=== PATIENT | male | born 1950 | race Two or more races ===

== ENCOUNTER → 2023-01-30 14:14 | Outpatient (BNVA) | payer MEDICARE, MEDICAID, SELFPAY | PROVIDERS: PCP Nurse Practitioner Family; Visit Provider Physician Assistant | DX: Z12.11 Encounter for screening for malignant neoplasm of colon (principal) | CPT/HCPCS: 99202 ==

== ENCOUNTER 2023-07-28 07:36 | Day surgery (SDC) | payer MEDICARE, SELFPAY ==
[2023-07-24 13:53] VITALS: BMI 27.5
--- NOTE | 2023-07-28 08:41 | HO.ANESPROP2 ---
HPI - Anesthesia Eval Consult details Narrative: 73 yo male patient for Colonoscopy PMFSH Active Problems Active Problems: All Active Problems (Updated 07/28/23 @ 08:42 by Mellissa Dye MD) Screening for colon cancer (Acute) Screening for prostate cancer (Acute) Physical exam (Acute) Family History Family history of problems with anesthesia: No Surgical History Surgical History Hx of colonoscopy History of Problems with Anesthesia: No Social History Social History Housing: Apartment Patient Tobacco Use Status: Never used Tobacco e-Cigarette/Vaping Use: Never Used Second Hand Smoke Exposure: No Advance Directives: No Advance Directives Information Provided: Yes service: No Current occupational status: retired Cognitive needs: No Hearing needs: No Vision needs: No Meds Allergies Allergy/AdvReac Type Severity Reaction Status Date / Time No Known Allergies Allergy Verified 01/30/23 14:32 Exam Exam Date and Time: July 28, 2023 0841 Height,Weight and Vital Signs: Height 5 ft 5 in Weight 74.843 kg Vital Signs Temp Pulse Resp BP Pulse Ox O2 Del Method 07/28/23 08:51 98.1 F 57 18 115/53 L 98 Room Air Airway Mallampati Class: II TM Dist: >3cm Neck ROM: Full Loose/Missing/Broken Teeth: Yes (Missing some teeth. Denies broken or loose teeth) Heart: RRR Lungs: CTAB Assessment and Plan Assessment Anesthesia Assessment: Anesthesia Plan Discussed and Chart Reviewed Final Anesthetic Review Family History of Problems with Anesthesia: No History of Problems with Anesthesia: No NPO: Yes ASA Class: II Final Preanesthetic Review: No Changes in Pt Med Stat, Meds/Allgs Chart Reviewed, Consent Obtained/Reviewed and Anes Risks/Benef Reviewed Patient Risk: Low Procedure Risk: Low Assessment/Block/Sedation in SS: Assess/Block/Sedation-SS Anesthetic Plan Anesthetic Plan: MAC: Disposition: Standard PACU
[2023-07-28 08:51] VITALS: BP 115/53; PULSE 57; RESP 18; TEMP 36.7; O2SAT 98
[2023-07-28] MEDS: Lactated Ringers 1,000 ML 50 ML IVCONT (08:52)
--- NOTE | 2023-07-28 09:24 | MHC.SHP ---
Pre-Procedural Eval Section A Date of Service: 07/28/23 The patient is an INPATIENT: No Section B Chief Complaint: Screening Relevant Family History (Specify if Yes): No Relevant Social History: None Present Medications: see Short Stay Collaborative assessment Medical History: No relevant PMH History of Previous Operations: Relevant previous surgery/procedure and date(s) (History of colonoscopy) Allergies: Allergies Allergy/AdvReac Type Severity Reaction Status Date / Time No Known Allergies Allergy Verified 01/30/23 14:32 Review of Systems Sugical H&P ROS: Negative: Constitution, Cardiovascular, Respiratory and Gastrointestinal Exam Surgical H&P Exam: Normal: Heart, Normal: Lungs, Normal: Extremities and Normal: Abdomen Plan Diagnosis/Plan: Unchanged I have reviewed the history and physical and performed a pertinent physical examination on my patient. No changes have occurred unless specified. Time Spent With Patient Time: Total time managing care of this patient today ____ minutes.
--- NOTE | 2023-07-28 09:36 | W.PM.OPN ---
Operative Note Operative Note Date of Service: 07/28/23 Narrative: COLONOSCOPY TILL CECUM Pre-op diagnosis: Colon cancer screening Post-op diagnosis:? Diverticulosis, hemorrhoids, fair prep Endoscopist:? Ayad Patel MD Anesthesia:?MAC Consent: Indications for the procedure and potential complications of bleeding, perforation, reaction to medications and missed diagnosis were discussed with the patient and informed consent was obtained. Instrument: Olympus PCF H 190 L variable stiffness pediatric colonoscope Monitoring: Vital signs and clinical assessment, intermittent blood pressure monitoring, continuous EKG monitoring, Pulse oximetry and Carbon Dioxide monitoring were done throughout the procedure. Please see anesthesia flowsheet. Colon withdrawl time was 19 minutes. Procedure: The patient was placed in the left lateral decubitis position and pre-procedure medications were administered. After a digital rectal examination of the ano-rectum, the video colonoscope was inserted into the rectum and advanced through the colon to the cecum. The colonoscope was slowly withdrawn in a retrograde panoramic fashion and the colon mucosa was carefully examined including a retroflexed view of the rectum. Findings and interventions are described below. Procedure Difficulty: Without difficulty Findings: Terminal Ileum: Not evaluated Cecum: Normal Ascending Colon: Normal Transverse Colon: Normal Descending Colon: Normal Sigmoid Colon: Moderate diverticulosis Rectum: Normal Ano-rectum: Moderate internal hemorrhoids Colon preparation: Good after copious irrigation and fair in the right and left colon due to scattered semi-solid stools with some undigested vegetable matter which could not be suctioned Impression and Post Procedure Diagnosis: Colonoscopy Findings: No polyps were detected No large lesions seen and smaller polyps could be missed due to fair prep. Moderate diverticulosis seen in the sigmoid colon Moderate hemorrhoids on retroflexed exam. Plan: Patient has an appointment on 08/13/23 in the [facility] with IVETH Wells. Repeat Colonoscopy in 5 years due to fair prep. Above findings were reviewed with the patient and diverticulosis handout was given in the discharge area
[2023-07-28 10:19] VITALS: BP 102/55; PULSE 64; RESP 16; TEMP 36.8; O2SAT 98
[2023-07-28 10:34] VITALS: BP 114/65; PULSE 61; RESP 16; TEMP 36.1; O2SAT 98
== END 2023-07-28 11:22 | disposition home or self-care (01) ==
PROVIDERS: PCP Nurse Practitioner Family; Visit Provider Internal Medicine Gastroenterology
PROC: 0DJD8ZZ Inspection of Lower Intestinal Tract, Via Natural or Artificial Opening Endoscopic (ICD-10-PCS; CPT 45378; principal; 2023-07-28 09:20)
DX: Z12.11 Encounter for screening for malignant neoplasm of colon (principal); K57.30 Diverticulosis of large intestine without perforation or abscess without bleeding; K64.8 Other hemorrhoids; R35.1 Nocturia
CPT/HCPCS: G0121

== ENCOUNTER → 2023-07-28 07:36 | Outpatient (BNV) | payer MEDICARE, SELFPAY | PROVIDERS: PCP Nurse Practitioner Family; Visit Provider Internal Medicine Gastroenterology | DX: Z12.11 Encounter for screening for malignant neoplasm of colon (principal); K57.30 Diverticulosis of large intestine without perforation or abscess without bleeding; K64.8 Other hemorrhoids | CPT/HCPCS: G0121 ==

== ENCOUNTER 2023-08-26 08:44 | Outpatient (AMB) | payer MEDICARE, SELFPAY ==
[2023-08-26 08:46] VITALS: BP 130/72; PULSE 72; TEMP 36.6; O2SAT 98; BMI 22.3
--- NOTE | 2023-08-26 08:46 | AM.OFFWIN_ITS ---
Intake Vital Signs 08/26/23 08:46 Height 5 ft 5 in Weight 60.781 kg BMI 22.3 BP 130/72 Blood Pressure Location Lt brachial Position Sitting Pulse 72 Pulse Source Pulse Oximeter Temp 97.8 F Temp Source Oral Pulse Oximetry (%) 98 Oxygen Delivery Method Room Air Intake Visit Reasons: EP Back/Lower Ab pain sore throat Intake Note: Patient is here today for back pain and also sore throat. Patient Tobacco Use Status: Never used Tobacco Allergies No Known Allergies Allergy (Verified 08/26/23 08:52) Do you need a note to return to daycare/school/sports/work: No HPI HPI Comments History of Present Illness Details 0918 This is a 73 old male presenting to the clinic for evaluation of lower abdominal discomfort, nausea, testicular discomfort/severe pain, frequent urination ongoing for past 8 months worsening acutely over the past week. Patient reports he is pretty uncomfortable. There may have been a language barrier upon initial evaluation of patient, patient denies sore throat to me. Patient tells me he has been feeling fatigued, malaise for the past few months. Patient denies chest pain, shortness of breath, nausea, vomitng, hematuria, melena, fevers, chills. No previous issues testicles in the past. No concerns for STDs Physical exam patient well-appearing, Mild abdominal tenderness to palpation Concern for possible UTI versus cystitis versus kidney stone vs dka, new onset diabetes. Unlikely torsion, possible epididymitis, hydroceles. I do not suspect obstruction, diverticulitis, appendicitis, choledocholithiasis, cholangitis, cholecystitis, pancreatitis or any acute abdomen is. Plan ED- patient w/ elevated glucose, 3+ glucose and ketones in urine ? DKA vs gastroporesis, testicular discomfort present for months, not an acute finding unlikely acute torsion. PFSH Surgical History Hx of colonoscopy Social History Housing: Apartment Patient Tobacco Use Status: Never used Tobacco e-Cigarette/Vaping Use: Never Used Second Hand Smoke Exposure: No service: No Current occupational status: retired Cognitive needs: No Hearing needs: No Vision needs: No Physical Exam Vital Signs: Last Vital Signs Temp 97.8 F 08/26/23 08:46 Pulse 72 08/26/23 08:46 BP 130/72 08/26/23 08:46 Pulse Ox 98 08/26/23 08:46 Oxygen Delivery Method Room Air 08/26/23 08:46 BMI result Body Mass Index 22.3 Vital signs stable Appearance: Alert.? Oriented X3.? No acute distress.? Patient comfortable appearing Head: Normocephalic, atraumatic, no step-offs or deformities Eyes: Pupils equal, round and reactive to light.?? Neck: Normal inspection.? Neck supple.? CVS: Normal heart rate and rhythm.? Pulses normal.? Respiratory: No respiratory distress.? Breath sounds normal.? Abdomen: Soft and nontender.? Skin: Skin warm and dry.? Normal skin color.? Normal skin turgor.? Extremities: No lower extremity edema.? No calf ttp. 5/5 strength to bilateral upper and lower extremities Neuro: Oriented X 3.? No motor deficit.? No sensory deficit. CN 2-12 intact Results AMB Rapid Strep AMB Rapid Strep Negative Last Edit by Cuong Rojas CMA on 08/26/23 08 :58 AMB Urinalysis, Automated UA Leukoctes 0 Payam/uL Last Edit by Cuong Rojas CMA on 08/26/23 09:32 UA Nitrite Negative Last Edit by Cuong Rojas CMA on 08/26/23 09:32 UA Urobilinogen 0.2 mg/dL Last Edit by Cuong Rojas CMA on 08/26/23 09 :32 UA Protein 0 mg/dL Last Edit by Cuong Rojas CMA on 08/26/23 09:32 UA pH 6.0 Last Edit by Cuong Rojas CMA on 08/26/23 09:32 UA Blood 0 Quinn/uL Last Edit by Cuong Rojas CMA on 08/26/23 09:32 UA Specific [place] 1.010 Last Edit by Cuong Rojas CMA on 08/26/23 09:32 UA Ketone Positive Last Edit by Cuong Rojas CMA on 08/26/23 09:32 UA Bilirubin 0 mg/dL Last Edit by Cuong Rojas CMA on 08/26/23 09:32 UA Glucose 1000 mg/dL Last Edit by Cuong Rojas CMA on 08/26/23 09:32 AMB Random Glucose (hemocue) AMB Random Glucose (hemocue) 414 mg/dL Last Edit by Cuong Rojas CMA o n 08/26/23 09:33 Results Reviewed Results Reviewed: Laboratory Last Values Strep Scn Rapid Clinic Negative 08/26/23 08:58 Assessment & Plan Assessment & Plan (1) Testicular pain: Code(s): N50.819 - Testicular pain, unspecified (2) Bilateral lower abdominal discomfort: Code(s): R10.31 - Right lower quadrant pain; R10.32 - Left lower quadrant pain (3) Urinary frequency: Code(s): R35.0 - Frequency of micturition (4) Hyperglycemia: Code(s): R73.9 - Hyperglycemia, unspecified Plan Take your medications as prescribed. If you were prescribed antibiotics today, it is important that you take your medication to their entirety, do not skip any doses, do not finish them early. Follow-up with your primary care provider this week. Return to the emergency department with new or worsening symptoms. Such as fevers, chills, chest pain, shortness of breath, nausea, vomiting, dizziness, headache, vision changes, lethargy In case of emergency call 911 Orders: Orders AMB Rapid Strep Screen Today Z13.9 - Encounter for screening, unspecified Ronald Arnold MD US scrotum doppler Today N50.819 - Testicular pain, unspecified IVETH Russo AMB Urinalysis Automated Today Z13.9 - Encounter for screening, unspecified IVETH Russo AMB Random Glucose (hemocue) Today Z13.9 - Encounter for screening, unspecified IVETH Russo Medications: New cephalexin 500 mg PO QID 28 caps 0RF 7 days IVETH Russo Coding Level of Care Code Est Pt Level 3 (69719) Diagnoses Testicular pain N50.819 Bilateral lower abdominal discomfort R10.31; R10.32 Urinary frequency R35.0 Hyperglycemia R73.9
== END 2023-08-26 10:10 | disposition home or self-care (01) ==
PROVIDERS: PCP Nurse Practitioner Family; Visit Provider Physician Assistant
DX: N50.819 Testicular pain, unspecified (principal); R10.31 Right lower quadrant pain; R10.32 Left lower quadrant pain; R35.0 Frequency of micturition; R73.9 Hyperglycemia, unspecified; R53.83 Other fatigue
CPT/HCPCS: 81003; 82948; 87880; 99213

== ENCOUNTER 2023-08-26 10:05 | Emergency (ER) | payer MEDICARE, SELFPAY ==
[2023-08-26] VITALS (7 sets, daily range): BP systolic 133–158; BP diastolic 66–87; PULSE 65–80; RESP 16–20; TEMP 36.4–36.7; O2SAT 98–99; BMI 23.3
--- NOTE | ~2023-08-26 | US_ITS ---
EXAMINATION: US SCROTUM CLINICAL INFORMATION: Testicular pain. COMPARISON: None available. TECHNIQUE: A sonogram of the scrotum was performed assessing faust-scale appearance and color Doppler flow. Spectral Doppler analysis of the arterial and venous flow were performed in the testes bilaterally. FINDINGS: RIGHT: Right testicle measures 4.8 x 2.3 x 2.3 cm, volume 13.1 mL. No focal testicular parenchymal lesions are visualized. Spectral Doppler analysis of the arterial and venous flow is normal in the right testis. Right epididymal head is normal in size. 0.5 x 0.4 x 0.4 cm and 0.5 x 0.4 x 0.5 cm cysts are seen in the right epididymal head. No right hydrocele or varicocele is seen. Right epididymal Doppler flow is normal. There is question of a hernia within the right superior scrotal sac. LEFT: Left testicle measures 4.1 x 2.4 x 2.7 cm, volume 13.4 mL. No focal testicular parenchymal lesions are visualized. Spectral Doppler analysis of the arterial and venous flow is normal in the left testis. Left epididymal head is normal in size. Large left hydrocele, approximately 118 mL. No varicocele is seen. Left epididymal Doppler flow is normal. US/US scrotum doppler IMPRESSION: 1. Normal appearance of both testicles. 2. Right epididymal head cysts. 3. Large left hydrocele. 4. Question of a hernia within the right superior scrotal sac. A CT scan of the pelvis could be obtained for further evaluation.
--- NOTE | ~2023-08-26 | CT_ITS ---
EXAMINATION: CT HEAD WITHOUT CONTRAST CLINICAL INFORMATION: Dizziness/off balance COMPARISON: None available. TECHNIQUE: Contiguous axial imaging was performed from the skull base to vertex without intravenous administration of contrast. This CT examination was performed using dose optimization techniques as appropriate, variously including the following: *Automated exposure control *Adjustment of mA and/or kV according to patient size (this includes techniques or standardized protocols for targeted exams where dose is matched to indication/reason for exam; i.e. extremities or head) *Use of iterative reconstruction technique DLP: 644 mGy-cm FINDINGS: There is no intracranial hemorrhage or evidence of acute territorial infarction. There is no mass effect or midline shift. No extra-axial fluid collection. The ventricles are normal. There is mild prominence of the sulci and gyri consistent with age-related involutional change. The mastoid air cells and visualized paranasal sinuses are well aerated and clear. There are several small calcified lesions in the scalp which are of doubtful clinical significance. There is no bony abnormality. CT/CT head/brain wo IV con IMPRESSION: No acute intracranial pathology.
--- NOTE | ~2023-08-26 | CT_ITS ---
EXAMINATION: CT PELVIS WITHOUT CONTRAST CLINICAL INFORMATION: Abnormal ultrasound, question scrotal hernia COMPARISON: Ultrasound of 08/26/2023 TECHNIQUE: Helical scanning was performed with submillimeter collimation through the pelvis. Sagittal and coronal multiplanar 2-D reconstructions were obtained. This CT examination was performed using dose optimization techniques as appropriate, variously including the following: *Automated exposure control *Adjustment of mA and/or kV according to patient size (this includes techniques or standardized protocols for targeted exams where dose is matched to indication/reason for exam; i.e. extremities or head) *Use of iterative reconstruction technique DLP: 250 to mGy-cm FINDINGS: PELVIS: No pelvic mass, adenopathy or ascites is evident. The lower intestinal tract including the appendix images normally. No scrotal hernia is detected. The prostate gland is enlarged, with median lobe hypertrophy indenting the bladder base. OSSEOUS STRUCTURES: Bilateral L5 spondylolysis and grade 1 spondylolisthesis is noted at L5-S1. CT/CT pelvis wo IV con IMPRESSION: 1. No scrotal hernia. 2. Prostate enlargement. 3. Bilateral L5 spondylolysis and grade 1 spondylolisthesis at L5-S1.
--- NOTE | ~2023-08-26 | US_ITS ---
EXAMINATION: US SCROTUM CLINICAL INFORMATION: Testicular pain. COMPARISON: None available. TECHNIQUE: A sonogram of the scrotum was performed assessing faust-scale appearance and color Doppler flow. Spectral Doppler analysis of the arterial and venous flow were performed in the testes bilaterally. FINDINGS: RIGHT: Right testicle measures 4.8 x 2.3 x 2.3 cm, volume 13.1 mL. No focal testicular parenchymal lesions are visualized. Spectral Doppler analysis of the arterial and venous flow is normal in the right testis. Right epididymal head is normal in size. 0.5 x 0.4 x 0.4 cm and 0.5 x 0.4 x 0.5 cm cysts are seen in the right epididymal head. No right hydrocele or varicocele is seen. Right epididymal Doppler flow is normal. There is question of a hernia within the right superior scrotal sac. LEFT: Left testicle measures 4.1 x 2.4 x 2.7 cm, volume 13.4 mL. No focal testicular parenchymal lesions are visualized. Spectral Doppler analysis of the arterial and venous flow is normal in the left testis. Left epididymal head is normal in size. Large left hydrocele, approximately 118 mL. No varicocele is seen. Left epididymal Doppler flow is normal. US/US scrotum IMPRESSION: 1. Normal appearance of both testicles. 2. Right epididymal head cysts. 3. Large left hydrocele. 4. Question of a hernia within the right superior scrotal sac. A CT scan of the pelvis could be obtained for further evaluation.
[2023-08-26 10:16] LABS: Glucose, Whole Blood 405 mg/dL (60-115)
[2023-08-26 10:23] LABS: MANUAL DIFF FLAG NO
[2023-08-26 10:24] LABS: Basophils Percent Auto 0.5 % (0-2); Eosinophils Percent Auto 0.7 % (0-4); Hematocrit 43.8 % (42.0-52.0); Hemoglobin 15.1 g/dl (14.0-18.0); Imm Gran Abs Auto 0.03 X10*3/uL (0.00-0.03); Imm Gran Pct Auto 0.5 % (0.0-0.4); Lymphocytes Absolute Auto 2.2 X10*3/uL (1.2-4.9); Lymphocytes Percent Auto 36.9 % (20-40); Mean Corpuscular HGB Conc 34.5 g/dl (31.0-36.0); Mean Corpuscular Hemoglobin 30.1 pg (27.0-33.0); Mean Corpuscular Volume 87.3 fL (80.0-98.0); Mean Platelet Volume 11.1 fL (9.4-12.4); Monocytes Absolute Auto 0.6 X10*3/uL (0.1-1.2); Monocytes Percent Auto 10.1 % (2-11); Neutrophils Absolute Auto 3.1 x10*3/uL (2.0-8.3); Neutrophils Percent Auto 51.3 % (45-73); Platelet Count 227 X10*3/uL (160-400); Red Blood Count 5.02 X10*6/uL (4.60-5.80); Red Cell Distribution Width 12.5 % (11.0-16.0)
[2023-08-26 10:43] LABS: Alanine Aminotransferase 25 U/L (0-40); Albumin Level 4.4 g/dL (3.5-5.0); Alkaline Phosphatase 180 U/L (39-117); Anion Gap 13 (12-20); Aspartate Amino Transferase 18 U/L (5-37); Bilirubin Total 0.7 mg/dL (0.0-1.0); Blood Urea Nitrogen 11 mg/dL (9-16); Calcium 9.5 mg/dL (8.4-10.2); Carbon Dioxide 25 mmol/L (22-29); Chloride 103 mmol/L (96-108); Estimated Glomerular Filt Rate > 60; Potassium 4.3 mmol/L (3.3-5.1); Sodium 137 mmol/L (135-145)
[2023-08-26 10:51] LABS: Glucose Random 412 mg/dL (60-115)
--- NOTE | 2023-08-26 11:08 | ED.GENADULT ---
HPI - General Adult General Chief complaint: General Medical Stated complaint: high bs sent in from [employer] [facility] Time Seen by Provider: 08/26/23 12:35 Source: patient, RN notes reviewed and old records reviewed History of Present Illness HPI narrative: 73-year-old male with no significant past medical history presenting to the ED complaining acute on chronic lower abdominal pain, nausea, odorous urine, testicular pain/unilateral swelling, dizziness described as feeling off balance with ambulation, and mild headache x4 months. Reports symptoms are intermittent. Also reports intermittent chest tightness, SOB, polyuria and polydipsia. Denies fever/chills, vomiting, diarrhea, dysuria, flank pain, concern for STI patient was seen at [facility] and sent to the ED for further evaluation. Related Data Previous Rx's Medication Instructions Recorded cephalexin 500 mg capsule 500 mg PO QID 7 days #28 caps 08/26/23 metformin 500 mg tablet 500 mg PO BID 30 days #60 tabs 08/26/23 Allergies Allergy/AdvReac Type Severity Reaction Status Date / Time No Known Allergies Allergy Verified 08/26/23 08:52 Review of Systems Review of Systems: Constitutional: No Fever, No Chills, No Fatigue, No Malaise ENT/Mouth: No Ear Pain, No Nasal Congestion, No sore throat, No Rhinorrhea, No Swallowing Difficulty Eyes: No Eye Pain, No Swelling, No Redness, No Vision Changes Cardiovascular: +Chest Pain, +SOB, No Dyspnea on Exertion, No Edema, No Palpitations Respiratory: No Cough, No Sputum, No Dyspnea Gastrointestinal: +Nausea, No Vomiting, No Diarrhea, No Constipation, + Abdominal pain Genitourinary: + testicular pain and unilateral swelling, No irregular bleeding, No Dysuria, No Urinary Frequency, No Hematuria, No Flank Pain Musculoskeletal: No joint pain, No Myalgias, No Joint Swelling Skin: No Skin Lesions, No rash Neuro: No Weakness, No Numbness, No Paresthesias, No Loss of Consciousness, + Dizziness, + Headache Yes all other systems are reviewed and are negative Constitutional: Constitutional: Reports as per HPI Neurologic: Denies Abnormal speech present [facility] Past Medical History Attestation statement: The following information was validated with the patient. Source: old records reviewed Surgical History Hx of colonoscopy Social History Social History Housing: Apartment Alcohol intake: never Patient Tobacco Use Status: Never used Tobacco Smoked in Last 30 Days: No e-Cigarette/Vaping Use: Never Used Second Hand Smoke Exposure: No Use of substances other than those prescribed or required for medical reasons: No Advance Directives: No Advance Directives Information Provided: Yes service: No Current occupational status: retired Cognitive needs: No Hearing needs: No Vision needs: No Physical Exam ED Vital Signs: Vital Signs - 24 hr 08/26/23 10:09 08/26/23 14:00 08/26/23 14:07 Temperature 98.1 F 98.0 F Pulse Rate 65 68 66 Respiratory Rate 18 16 Blood Pressure 142/68 H 148/77 H 146/76 H Pulse Oximetry 99 98 Oxygen Delivery Method Room Air Room Air 08/26/23 14:09 08/26/23 14:11 08/26/23 15:15 Temperature 97.9 F Pulse Rate 80 74 67 Respiratory Rate 20 Blood Pressure 144/73 H 152/85 H 133/66 Pulse Oximetry 99 Oxygen Delivery Method Room Air 08/26/23 16:00 Temperature 97.6 F Pulse Rate 67 Respiratory Rate 18 Blood Pressure 158/87 H Pulse Oximetry 99 Oxygen Delivery Method Room Air BMI result Body Mass Index 23.3 Const General: cooperative, healthy appearing and no acute distress Orientation/consciousness: patient oriented x3 Limitations: no limitations HENMT Head: Yes normal to inspection and Yes atraumatic Ears: hearing grossly normal bilaterally General nose exam: Normal external nose present Face and sinus: Yes normal facial exam Eyes General: appearance normal, both eyes and all related structures EOM: EOMs intact bilaterally Neck Neck: Yes normal visual inspection and Yes no meningeal signs Resp Effort & Inspection: normal respiratory effort and no respiratory distress Auscultation: clear to auscultation bilaterally, no rales and no wheezes Cardio Rate: regular rate Heart sounds: S1 normal heart sound present and S2 normal heart sound present GI Inspection: Yes normal to inspection Palpation (GI): Soft to palpation, nontender, no guarding and not rigid General: Yes no CVA tenderness Penis: normal penis and uncircumcised Scrotum: scrotal swelling (Left-sided scrotal swelling noted with +ttp, no erythema/warmth/fluctuance) on the left Testes: testicular tenderness (Left) Back/Spine/Pelvis Back: no CVA tenderness Skin Rashes: no rashes Wounds: no wounds Neuro General: patient oriented x3, gait normal, tone normal, moves all extremities, no meningeal signs, no focal motor deficits and CN's II-XI intact bilaterally Cranial nerves: Yes CN's II-XII intact bilaterally Cognition (Neuro): normal cognition Speech: No Abnormal speech present Gait exam (Neuro): Normal gait present Motor exam (neuro): 5/5 motor strength present throughout, Pronator motor function not present and no tremor noted Coordination: [id number] test normal Romberg Test: Negative Extrem General: Yes normal to inspection Course Course Course Narrative: This is an RME: Additional HPI, ROS, PE not included below will be deferred to primary provider. 73 old male presenting to the clinic for evaluation of lower abdominal discomfort, nausea, testicular discomfort/severe pain, frequent urination ongoing for past 8 months worsening acutely over the past week. Patient reports he is pretty uncomfortable. There may have been a language barrier upon initial evaluation of patient, patient denies sore throat to me. Patient tells me he has been feeling fatigued, malaise for the past few months. Patient denies chest pain, shortness of breath, nausea, vomitng, hematuria, melena, fevers, chills. No previous issues testicles in the past. No concerns for STDs At ketones and glucose in urine. Plan- labs, ua, imaging -1309--no leukocytosis. H&H stable. Glucose elevated to 412, no anion gap > A1c added. Bicarb WNL -1523--A1c greater than 14 CT head/brain wo IV con IMPRESSION: No acute intracranial pathology. US scrotum IMPRESSION: 1. Normal appearance of both testicles. 2. Right epididymal head cysts. 3. Large left hydrocele. 4. Question of a hernia within the right superior scrotal sac. A CT scan of the pelvis could be obtained for further evaluation. > will obtain CT pelvis for further eval -repeat POC 211 after 1L LR >> will d/c patient home on Metformin -1630--ED care transferred to [facility] pending CT results and anticipated discharge Reevaluation(s) Reevaluation #1: CT AP Reveals no evidence of scrotal hernia, stable for discharge and outpatient follow-up as per Recommendations from Sejal Beckwith Time: 17:25 Medications Administered Discontinued Medications Generic Name Dose Route Start Last Admin Trade Name Junito PRN Reason Stop Dose Admin Lactated Ringer's 1,000 mls @ 999 mls/hr 08/26/23 12:45 08/26/23 15:35 Lr IV 08/26/23 13:45 Infused .Q1H1M TRUNG Infusion Medical Decision Making Medical Decision Making [facility] Narrative: 73-year-old male with no significant past medical history presenting to the ED complaining acute on chronic lower abdominal pain, nausea, odorous urine, testicular pain/unilateral swelling, dizziness described as feeling off balance with ambulation, and mild headache x4 months. Also reports intermittent chest tightness, SOB, polyuria and polydipsia. On exam vital signs stable, NAD, nontoxic appearing, abdomen soft/nontender, left scrotum with noted swelling and tenderness, no erythema/warmth. No focal neuro deficits, ambulating with steady gait without ataxia. Concern for new onset diabetes vs DKA vs hydrocele/epididymitis/orchitis vs colitis vs subacute CVA vs UTI. Low suspicion for acute CVA/TIA, testicular torsion with duration of symptoms, ACS/PE appendicitis/diverticulitis, pyelo. Unlikely STI Plan: EKG, labs, UA, head CT, scrotal ultrasound, orthostatics, IVF Please refer to course for remaining clinical decision making, interpretation of labs/imaging results, and discussions with consultants and/or family members. Differential Diagnosis Differential Diagnoses: The differential diagnosis associated with the presentation includes As above Admission/Observation Consideration of admission/observation: Escalation of care including admission/observation considered Lab Data [facility] Lab Attestation statement: I reviewed the patient's lab results. 08/26/23 10:18 08/26/23 10:18 Labs: Lab Results 08/26/23 08/26/23 08/26/23 Range/Units 10:12 10:18 11:50 WBC 6.0 (4.8-10.8) X10*3/uL RBC 5.02 (4.60-5.80) X10*6/uL Hgb 15.1 (14.0-18.0) g/dl Hct 43.8 (42.0-52.0) % MCV 87.3 (80.0-98.0) fL MCH 30.1 (27.0-33.0) pg MCHC 34.5 (31.0-36.0) g/dl RDW 12.5 (11.0-16.0) % Plt Count 227 (160-400) X10*3/uL MPV 11.1 (9.4-12.4) fL Immature Gran % (Auto) 0.5 H (0.0-0.4) % Neut % (Auto) 51.3 (45-73) % Lymph % (Auto) 36.9 (20-40) % Giles % (Auto) 10.1 (2-11) % Eos % (Auto) 0.7 (0-4) % Baso % (Auto) 0.5 (0-2) % Lymph # (Auto) 2.2 (1.2-4.9) X10*3/uL Giles # (Auto) 0.6 (0.1-1.2) X10*3/uL Eos # (Auto) 0.0 (0.0-0.4) X10*3/uL Baso # (Auto) 0.0 (0.0-0.2) X10*3/uL Abs Immat Gran (auto) 0.03 (0.00-0.03) X10*3/uL Absolute Neuts (auto) 3.1 (2.0-8.3) x10*3/uL Absolute Nucleated RBC 0.000 (0.0-0.012) X10*3/uL Nucleated RBC % (auto) 0.0 (0.0-0.2) /100WBC Sodium 137 (135-145) mmol/L Potassium 4.3 (3.3-5.1) mmol/L Chloride 103 (96-108) mmol/L Carbon Dioxide 25 (22-29) mmol/L Anion Gap 13 (12-20) BUN 11 (9-16) mg/dL Creatinine 0.88 (0.5-1.4) mg/dL Estim Creat Clear Calc 66.0 Estimated GFR > 60 POC Glucose 405 H* (60-115) mg/dL Random Glucose 412 H* (60-115) mg/dL Estimat Average Glucose TNP Hemoglobin A1c % > 14.0 H (<6.0) % Calcium 9.5 (8.4-10.2) mg/dL Magnesium 2.1 (1.6-2.6) mg/dL Total Bilirubin 0.7 (0.0-1.0) mg/dL AST 18 (5-37) U/L ALT 25 (0-40) U/L Alkaline Phosphatase 180 H (39-117) U/L Troponin I High Sens < 2.7 (<3.5-35.0) ng/L Total Protein 8.0 (6.5-8.0) g/dL Albumin 4.4 (3.5-5.0) g/dL Lipase 16 (8-78) U/L Beta-Hydroxybutyrate 0.26 (0.02-0.27) mmol/L 08/26/23 08/26/23 Range/Units 12:45 16:05 WBC (4.8-10.8) X10*3/uL RBC (4.60-5.80) X10*6/uL Hgb (14.0-18.0) g/dl Hct (42.0-52.0) % MCV (80.0-98.0) fL MCH (27.0-33.0) pg MCHC (31.0-36.0) g/dl RDW (11.0-16.0) % Plt Count (160-400) X10*3/uL MPV (9.4-12.4) fL Immature Gran % (Auto) (0.0-0.4) % Neut % (Auto) (45-73) % Lymph % (Auto) (20-40) % Giles % (Auto) (2-11) % Eos % (Auto) (0-4) % Baso % (Auto) (0-2) % Lymph # (Auto) (1.2-4.9) X10*3/uL Giles # (Auto) (0.1-1.2) X10*3/uL Eos # (Auto) (0.0-0.4) X10*3/uL Baso # (Auto) (0.0-0.2) X10*3/uL Abs Immat Gran (auto) (0.00-0.03) X10*3/uL Absolute Neuts (auto) (2.0-8.3) x10*3/uL Absolute Nucleated RBC (0.0-0.012) X10*3/uL Nucleated RBC % (auto) (0.0-0.2) /100WBC Sodium (135-145) mmol/L Potassium (3.3-5.1) mmol/L Chloride (96-108) mmol/L Carbon Dioxide (22-29) mmol/L Anion Gap (12-20) BUN (9-16) mg/dL Creatinine (0.5-1.4) mg/dL Estim Creat Clear Calc Estimated GFR POC Glucose 305 H 211 H (60-115) mg/dL Random Glucose (60-115) mg/dL Estimat Average Glucose Hemoglobin A1c % (<6.0) % Calcium (8.4-10.2) mg/dL Magnesium (1.6-2.6) mg/dL Total Bilirubin (0.0-1.0) mg/dL AST (5-37) U/L ALT (0-40) U/L Alkaline Phosphatase (39-117) U/L Troponin I High Sens (<3.5-35.0) ng/L Total Protein (6.5-8.0) g/dL Albumin (3.5-5.0) g/dL Lipase (8-78) U/L Beta-Hydroxybutyrate (0.02-0.27) mmol/L Independent Interpretation I performed an independent interpretation of an: EKG Radiology Impression Discussion of test interpretation with radiology: I have reviewed the radiologist's reading. Radiologist Impression: CT/CT pelvis wo IV con IMPRESSION: 1. No scrotal hernia. 2. Prostate enlargement. 3. Bilateral L5 spondylolysis and grade 1 spondylolisthesis at L5-S1. External Record Review External record reviewed: Inpatient record, Office record, Outpatient record, Prior outpatient labs, Prior outpatient radiology, Primary care record and Outside ED record Tests considered The following testing was considered but not selected: As above Prescription Management I considered prescription management with: Pain Medication and Antibiotic Discharge Plan Discharge Clinical Impression: Diabetes mellitus, new onset, Hydrocele, Chronic abdominal pain, Dizziness Patient Disposition: Home, Self-Care Instructions: Hydrocele (ED), Type 2 Diabetes in Adults: New Diagnosis (DC) Additional Instructions: You have new onset diabetes, metformin will help treat your sugars, please take as prescribed you need to follow-up with endocrinology You have a hydrocele which is fluid around your testicle please follow-up with urology. scrotal support is reccommended You should also follow-up with neurology for your dizziness Please see your PCP If symptoms persist or worsen return to the ED Prescriptions: New metformin 500 mg tablet 500 mg PO BID 30 Days Qty: 60 0RF No Action cephalexin 500 mg capsule 500 mg PO QID 7 Days Qty: 28 0RF Referrals: [facility] G[facility]ology Services [Provider Group] [facility] [Provider Group] [facility] Urology [facility] [Provider Group] Chad Weems, [facility] [Primary Care Provider] - 2 days Print Language: British
[2023-08-26 12:11] LABS: Beta-Hydroxybutyrate 0.26 mmol/L (0.02-0.27); Lipase 16 U/L (8-78)
--- NOTE | 2023-08-26 12:45 | PC.NURSE ---
provider bedside assessing pt. 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 pt comes in today d/t 4 month long 8/10 lower abdominal pain bilaterally. pt also c/o 8/10 testicular/scrotal pain that has occurred for the past 8 months. pt has also been dizzy for 2 months that causes him difficulty to walk. upon visualization - pt has unsteady gait when ambulating and currently complaining that he feels dizzy. will put pt as high fall risk. POC = 305mg/dL - provider aware at this time. pt complains about being more thirsty lately and feels like he is urinating more frequently. pt also states SOB that worsens upon movement/exertion - clear lung sounds noted throughout. per provider scrotal assessment, provider states that visualization and palpation is abnormal and that further imaging is needed. ultrasound currently bedside w/ patient. pt aware of plan of care at this time. resting comfortably in bed in no apparent distress. respirations even and unlabored, call acevedo placed within reach.
--- NOTE | 2023-08-26 13:09 | ECG_ITS ---
Test Reason : DIZINESS Blood Pressure : / mmHG Vent. Rate : 064 BPM Atrial Rate : 064 BPM P-R Int : 168 ms QRS Dur : 096 ms QT Int : 392 ms P-R-T Axes : 051 -30 040 degrees QTc Int : 404 ms Normal sinus rhythm Left axis deviation Abnormal ECG No previous ECGs available Referred By: Gricelda Pena Electronically Signed By:CARLOS MAHONEY
[2023-08-26 13:10] LABS: Magnesium 2.1 mg/dL (1.6-2.6)
[2023-08-26 13:18] LABS: Hemoglobin A1c % > 14.0 % (<6.0)
[2023-08-26] MEDS: Lactated Ringers 1,000 ML 999 ML IV (14:18)
--- NOTE | 2023-08-26 14:18 | PC.NURSE ---
tasks delayed d/t ultrasound bedside w/ pt. vss and up to date. 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 pt had negative orthostats - will notify provider. pt states pain in abdomen decreased to 4/10. 20gIV placed in the right AC w/o complications. IVF hung and administered per provider order. pt resting comfortably in no apparent distress. respirations even and unlabored. call acevedo placed within reach.
[2023-08-26 14:26] LABS: Glucose, Whole Blood 305 mg/dL (60-115)
[2023-08-26 14:45] LABS: Troponin-I High Sensitivity < 2.7 ng/L (<3.5-35.0)
[2023-08-26 16:08] LABS: Glucose, Whole Blood 211 mg/dL (60-115)
--- NOTE | 2023-08-26 16:20 | PC.NURSE ---
pt a&ox3, vss and up to date. nsr on the nurse monitoring. pt still c/o 05/10 abdominal/scrotal pain at this time. LR completely infused and d/c'd. pt's sister bedside for support. pt and family member aware of plan of care at this time. resting comfortably in no apparent distress. respirations even and unlabored. call acevedo placed within reach.
== END 2023-08-26 17:30 | disposition home or self-care (01) ==
PROVIDERS: Physician Assistant; Emergency Provider Emergency Medicine; PCP Nurse Practitioner Family
DX: N43.3 Hydrocele, unspecified (principal); R10.9 Unspecified abdominal pain; R10.2 Pelvic and perineal pain; R11.2 Nausea with vomiting, unspecified; R94.31 Abnormal electrocardiogram [ECG] [EKG]; R42 Dizziness and giddiness; E11.9 Type 2 diabetes mellitus without complications; Z79.899 Other long term (current) drug therapy
CPT/HCPCS: 36415; 70450; 72192; 76870; 80053; 82010; 82947; 83036; 83690; 83735; 84484; 85025; 93005; 93975; 99284; 99285

== ENCOUNTER 2023-11-06 07:38 | Outpatient (AMB) | payer MEDICARE, SELFPAY ==
--- NOTE | 2023-11-06 07:43 | A.OFFPC_ITS ---
Vital Signs 11/06/23 07:45 Height 5 ft 5 in Weight 145 lb BMI 24.1 BP 100/60 Blood Pressure Location Rt brachial Position Sitting Pulse 64 Pulse Source Pulse Oximeter Pulse Oximetry (%) 99 Oxygen Delivery Method Room Air Intake Visit Reasons: Annual PE Intake Note: Patient here for physical exam and would like to talk about elevated sugar that he was in the hospital for. Allergies No Known Allergies Allergy (Verified 11/06/23 07:46) Medication List - Last Reconciled 11/06/23 by SIMRAN Perez atorvastatin 20 mg PO BEDTIME 90 days metformin 1,000 mg PO BID 90 days Tobacco use date assessed: 11/06/23 Fall risk assessment: No Falls in past year Last assessed Fall Risk: 11/06/23 Dental Screening Dental Screen Date: 11/06/23 Did you have a dental visit in the last 12 months?: No Did you have a dental problem in the last 6 months where you did not have access to dental care?: No Was dental information given to patient?: Patient has dentist HPI Annual PE HPI Details Pt is here for a PE. Will order labs. Colon screen is up to date. Due for PSA, will order. Pt reports weak stream and incomplete bladder emptying. Prostate feels very enlarged, will refer to urology. Pt is a diabetic. A1C in office today is 9.2. Due for microalbumin, will order. Reports polyuria, polydipsia, and neuropathy. Pt denies any signs and symptoms of hypoglycemia and does know how to correct it. Will increase metformin from 500mg bid to 1000mg bid. Will start jardiance 10mg and atorvastatin 20mg. Will hold off on starting an ZEKE/ARB right now as pt's BP is lower. Pt's scrotum is enlarged on exam, will order US. Due for eye exam, will refer. NOTE: grandson translates for pt PFSH Surgical History Hx of colonoscopy Social History Housing: Apartment Alcohol intake: never Patient Tobacco Use Status: Never used Tobacco e-Cigarette/Vaping Use: Never Used Second Hand Smoke Exposure: No service: No Current occupational status: retired Cognitive needs: No Hearing needs: No Vision needs: No Questionnaire PHQ-9 Over the last 2 weeks, how often have you been bothered by any of the following problems? 92970 - PHQ-9 Billing: Patient declined-do not bill Source: Developed by Drs. Naif Milton, Mireille Palacios, Bola Spicer and colleagues, with an educational jennifer from [employer]. Thrive Questionnaire Date Thrive assessed: 11/06/23 What is your living situation today?: I choose not to answer this question Within the past 12 months, did the food you bought not last and you didn't have the money to get more?: I choose not to answer this question Within the past 12 months, did you worry whether your food would run out before you got money to buy more?: I choose not to answer this question Do you have trouble paying for medicines?: I choose not to answer this question Do you have trouble getting transportation to medical appointments?: I choose not to answer this question Do you have trouble paying your heating and electricity bill?: I choose not to answer this question Do you have trouble taking care of your child, family member or friend?: I choose not to answer this question Do you have trouble with day-to-day activities such as bathing, preparing meals, shopping, managing finances, etc.?: I choose not to answer this question Are you currently unemployed and looking for a job?: I choose not to answer this question Are you interested in more education?: I choose not to answer this question Currently or been in a relationship where the following occur: I choose not to answer this question AUDIT C Alcohol Use Questionnaire (AUDIT-C) 1. How often do you have a drink containing alcohol?: Never 3. How often do you have six or more drinks on one occasion?: Never Total Score: 0 Score Reviewed/Action Taken: No SUZAN-7 AMB Questionnaire SUZAN-7 Date SUZAN - 7 assessed: 11/06/23 Source: Developed by Drs. Naif Milton, Mireille Palacios, Bola Spicer and colleagues, with an educational jennifer from [employer]. SUZAN-7 Assessment Billing SUZAN-7 Assessment Tool: pt declined-do not bill Review of Systems Const Denies chills and Denies fever(s) Eyes Denies blurry vision ENT Denies vertigo, Denies dizziness and Denies sore throat Card Denies chest pain at rest, Denies chest pain with activity, Denies diaphoresis, Denies dyspnea and Denies dyspnea on exertion Resp Denies cough, Denies dyspnea, Denies dyspnea on exertion and Denies wheezing GI Denies abdominal pain, Denies melena, Denies hematochezia, Denies constipation, Denies diarrhea and Denies loose stools Denies hematuria Musc Denies numbness and Denies tingling Skin/Breast Denies lesions Neuro Denies vertigo, Denies dizziness, Denies numbness and Denies tingling Psych Denies anxiety, Denies depression, Denies homicidal ideation, Denies suicidal ideation and Denies other (substance abuse) Aller/Immun Denies wheezing Physical exam (Primary Care) Vital Signs: Last Vital Signs Pulse 64 11/06/23 07:45 BP 100/60 11/06/23 07:45 Pulse Ox 99 11/06/23 07:45 Oxygen Delivery Method Room Air 11/06/23 07:45 BMI result Body Mass Index 24.1 Tobacco/Smoking Status: Tobacco use Status Tobacco use date assessed 11/06/23 11/06/23 07:49 Patient Tobacco Use Status Never used Tobacco 11/06/23 07:44 e-Cigarette/Vaping Use Never Used 11/06/23 07:44 Thrive Assessment: Date of Thrive Assessment Date Thrive assessed 11/04/22 11/06/23 07:44 Currently or been in a relationship where the following occur: I choose not to answer this question Const General: cooperative Nutritional Appearance: well nourished Orientation/consciousness: patient oriented x3 HENMT Head: Yes normal to inspection, Yes normocephalic and Yes atraumatic Ears: TM's normal bilaterally Eyes General: appearance normal, both eyes and all related structures Alignment and Position: alignment normal and position normal Neck Neck: Yes normal visual inspection and Yes no lymphadenopathy Thyroid: Thyroid normal Resp Effort & Inspection: normal respiratory effort Auscultation: clear to auscultation bilaterally Cardio Rate: regular rate Rhythm: regular rhythm Heart sounds: S1 normal heart sound present, S2 normal heart sound present and no murmurs GI Palpation (GI): Soft to palpation and nontender Auscultation: normal bowel sounds Other: scrotum enlarged, difficult to palpate testicles, JENNI: prostate very enlarged Male General Exam: Yes normal external exam Penis: normal penis Scrotum: no inguinal hernias Skin Rashes: no rashes Neuro General: patient oriented x3, moves all extremities, no focal motor deficits and deep tendon reflexes 2+ bilaterally Romberg Test: Negative Extrem Other: bilat feet: + sensation with us of monofilament, oncyhomycosis noted to bilat big toenails Psych Appearance: grossly normal Mental Status: mental status grossly normal Speech and movement: Normal speech and movement present Affect: normal affect Attitude: cooperative Thought process: Normal thought process present Thought content: Normal thought content present Insight: Good insight present (Psych) Judgement: Good judgement present (Psych) Results AMB Hemoglobin A1c AMB Hemoglobin A1c 9.2 % Last Edit by YIN Shaffer on 11/06/23 08 :11 Results Reviewed Results Reviewed: Laboratory Last Values Hgb A1c (Clinic) 9.2 % (4.0-6.0) H 11/06/23 08:10 Assessment and Plan Assessment & Plan (1) Diabetes: Code(s): E11.9 - Type 2 diabetes mellitus without complications Plan: Labs ordered (2) Screening for prostate cancer: Code(s): Z12.5 - Encounter for screening for malignant neoplasm of prostate Plan: PSA ordered, prostate enlarged, referring to urology (3) Enlargement of scrotal sac: Code(s): N50.89 - Other specified disorders of the male genital organs Plan: US ordered (4) Enlarged prostate: Code(s): N40.0 - Benign prostatic hyperplasia without lower urinary tract symptoms Plan: Referred to urology Plan The patient agreed to the use of a medical malpractice paralegal for this encounter. Scribed for PB Sarkar- by Lily De Guzman medical malpractice paralegal, on 11/06/2023 at 07:55 EST. Orders: Orders Comprehensive [place]. Panel Fast Today E11.9 - Type 2 diabetes mellitus without complications UA CC w/rflx Micro + Cult Today E11.9 - Type 2 diabetes mellitus without complications Prostate Specific Antigen Scr Today Z12.5 - Encounter for screening for malignant neoplasm of prostate AMB Hemoglobin A1c Today Z13.9 - Encounter for screening, unspecified Complete Blood Count Auto Diff Today E11.9 - Type 2 diabetes mellitus without complications TSH reflex Free T4 Today E11.9 - Type 2 diabetes mellitus without complications Lipid Panel Today E11.9 - Type 2 diabetes mellitus without complications Microalbumin, Random (w Creat) Today E11.9 - Type 2 diabetes mellitus without complications US scrotum Today N50.89 - Other specified disorders of the male genital organs Referrals Urology Referral N40.0 - Benign prostatic hyperplasia without lower urinary tract symptoms Ophthalmology Referral E11.9 - Type 2 diabetes mellitus without complications Medications: New atorvastatin 20 mg PO BEDTIME 90 days 90 tabs 5RF empagliflozin (Jardiance) 10 mg PO DAILY 90 tabs 3RF Changed From metformin 500 mg PO BID 30 days 60 tabs 0RF To metformin 1,000 mg PO BID 90 days 180 tabs 5RF Coding Level of Care Code Est Pt Prev Care >65y(37206) Diagnoses Diabetes E11.9 Screening for prostate cancer Z12.5 Enlargement of scrotal sac N50.89 Enlarged prostate N40.0
[2023-11-06 07:45] VITALS: BP 100/60; PULSE 64; O2SAT 99; BMI 24.1
== END 2023-11-06 08:25 | disposition home or self-care (01) ==
PROVIDERS: PCP Nurse Practitioner Family; Visit Provider Nurse Practitioner Family
DX: Z00.00 Encounter for general adult medical examination without abnormal findings (principal); E11.9 Type 2 diabetes mellitus without complications; Z12.5 Encounter for screening for malignant neoplasm of prostate; N50.89 Other specified disorders of the male genital organs; N40.0 Benign prostatic hyperplasia without lower urinary tract symptoms
CPT/HCPCS: 83036; 99397

== ENCOUNTER 2023-11-06 08:14 | Outpatient (REF) | payer MEDICARE, SELFPAY ==
[2023-11-06 11:14] LABS: MANUAL DIFF FLAG NO
[2023-11-06 11:29] LABS: Appearance Urine Clear; Color Urine Yellow; Glucose Urine UA Negative (Negative); Leukocyte Esterase Urine Negative (Negative); Nitrite Urine Negative (Negative); PH 6.5 (5.0-9.0); Specific Gravity - Urine 1.015 (1.005-1.025); Urine Blood Negative (Negative); Urine Ketones Negative (Negative); Urine Protein Negative (Neg-Trace)
[2023-11-06 11:38] LABS: Basophils Percent Auto 0.7 % (0-2); Eosinophils Absolute Auto 0.1 X10*3/uL (0.0-0.4); Eosinophils Percent Auto 1.6 % (0-4); Hematocrit 43.1 % (42.0-52.0); Hemoglobin 14.4 g/dl (14.0-18.0); Imm Gran Abs Auto 0.01 X10*3/uL (0.00-0.03); Imm Gran Pct Auto 0.2 % (0.0-0.4); Lymphocytes Absolute Auto 2.2 X10*3/uL (1.2-4.9); Mean Corpuscular HGB Conc 33.4 g/dl (31.0-36.0); Mean Corpuscular Hemoglobin 30.5 pg (27.0-33.0); Mean Corpuscular Volume 91.3 fL (80.0-98.0); Mean Platelet Volume 12.2 fL (9.4-12.4); Monocytes Absolute Auto 0.6 X10*3/uL (0.1-1.2); Monocytes Percent Auto 10.4 % (2-11); Neutrophils Absolute Auto 2.6 x10*3/uL (2.0-8.3); Neutrophils Percent Auto 47.1 % (45-73); Platelet Count 236 X10*3/uL (160-400); Red Blood Count 4.72 X10*6/uL (4.60-5.80); Red Cell Distribution Width 13.2 % (11.0-16.0); White Blood Count 5.6 X10*3/uL (4.8-10.8)
[2023-11-06 12:14] LABS: Alanine Aminotransferase 29 U/L (0-40); Albumin Level 4.2 g/dL (3.5-5.0); Alkaline Phosphatase 90 U/L (39-117); Anion Gap 10 (12-20); Aspartate Amino Transferase 24 U/L (5-37); Bilirubin Total 0.9 mg/dL (0.0-1.0); Blood Urea Nitrogen 12 mg/dL (9-16); Carbon Dioxide 28 mmol/L (22-29); Chloride 106 mmol/L (96-108); Cholesterol 177 mg/dL (<200); Estimated Glomerular Filt Rate > 60; Glucose Fasting 153 mg/dL (60-99); HDL Cholesterol 35 mg/dL (>40); LDL Cholesterol Calculated 121 mg/dL (<100); Potassium 4.1 mmol/L (3.3-5.1); Sodium 140 mmol/L (135-145); Total Protein 7.7 g/dL (6.5-8.0); Triglycerides 107 mg/dL (<150)
[2023-11-06 12:19] LABS: Creatinine Urine 64.18 mg/dL; Microalbum/Creatinine Ratio Ur 9.3 ug/mg cr (<30); TSH reflex Free T4 6.28 uIU/mL (0.32-4.0)
[2023-11-06 12:25] LABS: Prostate Specific Antigen Scr 1.29 ng/mL (<0.05-4.0)
[2023-11-06 13:02] LABS: Free T4 (Free Thyroxine) 0.89 ng/dL (0.71-1.85)
== END 2023-11-06 08:15 | disposition home or self-care (01) ==
LOC: HO.HMGCLDS 08:14
PROVIDERS: PCP Nurse Practitioner Family; Visit Provider Nurse Practitioner Family
DX: E11.9 Type 2 diabetes mellitus without complications (principal); Z12.5 Encounter for screening for malignant neoplasm of prostate
CPT/HCPCS: 36415; 80053; 80061; 81003; 82043; 82570; 84153; 84439; 84443; 85025

== ENCOUNTER 2023-11-10 09:58 | Outpatient (REF) | payer MEDICARE, SELFPAY ==
[2023-11-10 14:17] LABS: TSH reflex Free T4 4.18 uIU/mL (0.32-4.0)
[2023-11-10 15:19] LABS: Free T4 (Free Thyroxine) 0.82 ng/dL (0.71-1.85)
[2023-11-11 10:03] LABS: Thyroid Peroxidase Antibodies <1 IU/mL (<9)
== END 2023-11-10 09:59 | disposition home or self-care (01) ==
LOC: HO.HMGCLDS 09:58
PROVIDERS: PCP Nurse Practitioner Family; Visit Provider Nurse Practitioner Family
DX: R94.6 Abnormal results of thyroid function studies (principal)
CPT/HCPCS: 36415; 84439; 84443; 86376

== ENCOUNTER 2024-01-08 10:42 | Outpatient (AMB) | payer MEDICARE, SELFPAY ==
--- NOTE | 2024-01-08 11:15 | A.OFFVIS_ITS ---
Intake Intake Visit Reasons: urinary tract symptoms Intake Note: NEW Patient presents today: Meds- None Allergies to Antibiotic- No Known Allergies Blood Thinner- None Transportation Lead Required: Yes Transportation Lead Language: Cadd Manager Name: Narayan Peacock, DARON/STEPHANIE SPANI Information Interpreted: non-clinical & clinical Accompanied by: Self / Same As Patient Allergies No Known Allergies Allergy (Verified 02/23/24 11:44) HPI HPI Comments History of Present Illness Details Kenny is a 73-year-old Sudanese-speaking male. 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 He is here for evaluation for urinary symptoms of weak stream, nocturia. He denies gross hematuria or dysuria. He also has scrotal swelling. Denies significant testicular pain. I reviewed scrotal ultrasound 08/26/2023--left hydrocele. Plan: I have discussed trial of alpha-carmen, Flomax 0.4 mg daily. I have discussed treatment options for excision of hydrocele versus aspiration of fluid which has higher incidence of recurrence. [facility] Surgical History No pertinent past surgical history Hx of colonoscopy Family History Father No family history of cancer Mother No family history of cancer Social History Housing: Apartment Alcohol intake: never Patient Tobacco Use Status: Never used Tobacco e-Cigarette/Vaping Use: Never Used Second Hand Smoke Exposure: No service: No Current occupational status: retired Cognitive needs: No Hearing needs: No Vision needs: No Review of Systems Const All systems reviewed & are unremarkable except as noted in HPI and below Reports no additional complaints Eyes Reports no additional complaints ENT Reports no additional complaints Card Reports no additional complaints Resp Reports no additional complaints GI Reports no additional complaints Reports as per HPI Musc Reports no additional complaints Skin/Breast Reports system reviewed and no additional complaints, except as documented Neuro Reports no additional complaints Psych Reports no additional complaints Endo Reports no additional complaints Riley/Lymph Reports no additional complaints Aller/Immun Reports no additional complaints Physical Exam Const General: healthy appearing, no acute distress and well developed Orientation/consciousness: patient oriented x3 HEENT Head: Yes normocephalic and Yes atraumatic Eyes Conjunctivae: conjunctivae normal Neck Neck: Yes normal visual inspection Chest Chest palpation & inspection: normal inspection of the chest Resp Effort & Inspection: normal respiratory effort Cardio Rate: regular rate GI Inspection: Yes normal to inspection Palpation (GI): Soft to palpation Scrotum: Hydrocele present on the left Skin General skin exam: no rashes or lesions noted Neuro General: patient oriented x3 Extrem General: No pedal edema Psych Appearance: grossly normal Affect: normal affect Results AMB Urinalysis, Automated UA Leukoctes 0 Payam/uL Last Edit by DARON Hernández on 01/08/24 11:24 UA Nitrite Negative Last Edit by DARON Hernández on 01/08/24 11:24 UA Urobilinogen 0.2 mg/dL Last Edit by DARON Hernández on 01/08/24 11:2 4 UA Protein 0 mg/dL Last Edit by DARON Hernández on 01/08/24 11:24 UA pH 6.0 Last Edit by DARON Hernández on 01/08/24 11:24 UA Blood 0 Quinn/uL Last Edit by DARON Hernández on 01/08/24 11:24 UA Specific [place] 1.015 Last Edit by DARON Hernández on 01/08/24 11: 24 UA Ketone Negative Last Edit by DARON Hernández on 01/08/24 11:24 UA Bilirubin 0 mg/dL Last Edit by DARON Hernández on 01/08/24 11:24 UA Glucose 1000 mg/dL Last Edit by DARON Hernández on 01/08/24 11:24 3+ Narayan Peacock 01/08/24 11:24 Results Reviewed Results Reviewed: Laboratory Last Values Urine pH (Auto) 6.0 01/08/24 11:18 Specific [place] (Auto) 1.015 01/08/24 11:18 Urine Protein (Auto) 0 mg/dL 01/08/24 11:18 Glucose (UA)(Auto) 1000 mg/dL 01/08/24 11:18 Urine Ketones (Auto) Negative 01/08/24 11:18 Urine Blood (Auto) 0 Quinn/uL 01/08/24 11:18 Urine Nitrite (Auto) Negative 01/08/24 11:18 Urine Bilirubin (Auto) 0 mg/dL 01/08/24 11:18 Urine Urobilinogen (Auto) 0.2 mg/dL 01/08/24 11:18 Leukocyte Esterase (Auto) 0 Payam/uL 01/08/24 11:18 Date of Service: 08/26/23 EXAMINATION: US SCROTUM CLINICAL INFORMATION: Testicular pain. COMPARISON: None available. TECHNIQUE: A sonogram of the scrotum was performed assessing faust-scale appearance and color Doppler flow. Spectral Doppler analysis of the arterial and venous flow were performed in the testes bilaterally. FINDINGS: RIGHT: Right testicle measures 4.8 x 2.3 x 2.3 cm, volume 13.1 mL. No focal testicular parenchymal lesions are visualized. Spectral Doppler analysis of the arterial and venous flow is normal in the right testis. Right epididymal head is normal in size. 0.5 x 0.4 x 0.4 cm and 0.5 x 0.4 x 0.5 cm cysts are seen in the right epididymal head. No right hydrocele or varicocele is seen. Right epididymal Doppler flow is normal. There is question of a hernia within the right superior scrotal sac. LEFT: Left testicle measures 4.1 x 2.4 x 2.7 cm, volume 13.4 mL. No focal testicular parenchymal lesions are visualized. Spectral Doppler analysis of the arterial and venous flow is normal in the left testis. Left epididymal head is normal in size. Large left hydrocele, approximately 118 mL. No varicocele is seen. Left epididymal Doppler flow is normal. IMPRESSION: 1. Normal appearance of both testicles. 2. Right epididymal head cysts. 3. Large left hydrocele. 4. Question of a hernia within the right superior scrotal sac. A CT scan of the pelvis could be obtained for further evaluation. Assessment & Plan Assessment & Plan (1) Enlarged prostate: Code(s): N40.0 - Benign prostatic hyperplasia without lower urinary tract symptoms (2) Weak urinary stream: Code(s): R39.12 - Poor urinary stream (3) BPH loc w urin obs/LUTS: Code(s): N40.1 - Benign prostatic hyperplasia with lower urinary tract symptoms (4) Hydrocele: Code(s): N43.3 - Hydrocele, unspecified Plan I have discussed trial of alpha-carmen, Flomax 0.4 mg daily. I have discussed treatment options for excision of hydrocele versus aspiration of fluid which has higher incidence of recurrence. Orders: Orders AMB Urinalysis Automated 01/08/24 Z13.9 - Encounter for screening, unspecified Medications: New tamsulosin (Flomax) Taking the evening with dinner daily 0.4 mg PO DAILY 30 caps 2RF Patient Instructions: The patient had an opportunity to ask questions regarding treatment plan. All questions were answered. Imaging, Laboratory studies and physical exam results were discussed and reviewed in detail. No major barriers to understanding were identified. The patient expressed understanding and agreement with the above treatment plan. The patient is aware they should contact our office by phone for worsening of their current condition or the appearance of new symptoms. Compliance is encouraged with any medications and followup testing that is ordered. It is a privilege to be allowed the opportunity to participate in the urologic care of your patient. If you have any questions or concerns regarding treatment for the above conditions please do not hesitate to contact me. The office telephone contact is [phone]. This note is constructed in part using voice recognition software. While every effort has been made to ensure accuracy data control assistant errors may have been included. Yours sincerely, Jose Chaparro MD Coding Level of Care Code New Pt Level 4 (60075) Diagnoses Enlarged prostate N40.0 Weak urinary stream R39.12 BPH loc w urin obs/LUTS N40.1 Hydrocele N43.3
== END 2024-01-08 12:13 | disposition home or self-care (01) ==
PROVIDERS: PCP Nurse Practitioner Family; Visit Provider Urology
DX: N40.1 Benign prostatic hyperplasia with lower urinary tract symptoms (principal); R39.12 Poor urinary stream; N43.3 Hydrocele, unspecified
CPT/HCPCS: 99204

== ENCOUNTER → 2024-01-08 10:42 | Outpatient (BNVA) | payer MEDICARE, OTHER, SELFPAY | PROVIDERS: PCP Nurse Practitioner Family; Visit Provider Urology | DX: N40.1 Benign prostatic hyperplasia with lower urinary tract symptoms (principal); R39.12 Poor urinary stream; N43.3 Hydrocele, unspecified | CPT/HCPCS: 81003; 99202 ==

== ENCOUNTER 2024-02-02 15:15 | Outpatient (REF) | payer MEDICARE, SELFPAY | END 2024-02-02 15:16 | disposition home or self-care (01) | LOC: HO.HMGCLDS 15:15 | PROVIDERS: PCP Nurse Practitioner Family; Visit Provider Nurse Practitioner Family | DX: R94.6 Abnormal results of thyroid function studies (principal) | CPT/HCPCS: 36415; 84443 ==

== ENCOUNTER 2024-02-14 19:21 | Emergency (ER) | payer MEDICARE, SELFPAY ==
--- NOTE | ~2024-02-14 | CT_ITS ---
EXAMINATION: CT ABDOMEN AND PELVIS WITHOUT IV CONTRAST CLINICAL INFORMATION: Mid abdominal pain COMPARISON: CT pelvis 08/26/2023 TECHNIQUE: Multiple axial images were obtained from the superior aspect of the liver through the pubic symphysis without intravenous contrast. Images were evaluated on independent dedicated 3-D workstation and 3-D images were reconstructed with concurrent radiologist supervision and subsequently interpreted. Oral contrast was not administered. This CT examination was performed using dose optimization techniques as appropriate, variously including the following: *Automated exposure control *Adjustment of mA and/or kV according to patient size (this includes techniques or standardized protocols for targeted exams where dose is matched to indication/reason for exam; i.e. extremities or head) *Use of iterative reconstruction technique DLP: 455 mGy-cm FINDINGS: LUNG BASES: The visualized lung bases are clear. CARDIOMEDIASTINUM: The visualized heart is normal in size without pericardial effusion. No coronary artery calcification. LIVER: Homogeneous in attenuation. Normal in size. GALLBLADDER: Large gallstone measures 2.[address] evidence of cholecystitis. BILIARY SYSTEM: No intrahepatic or extrahepatic biliary dilation. PANCREAS: Homogeneous in attenuation. SPLEEN: Normal in size. GENITOURINARY: No contour deforming masses. No perinephric fluid collection. No renal calculi. No hydroureteronephrosis. ADRENAL GLANDS: Unremarkable. REPRODUCTIVE: Last enlarged. GASTROINTESTINAL: The visualized alimentary tract is normal in course. No evidence of obstruction. APPENDIX: The appendix is not visualized; however, no pericecal inflammatory changes are seen in the right lower quadrant. PERITONEUM: No pneumoperitoneum. No intra-abdominal fluid collection. VASCULATURE: No abdominal aortic aneurysm. LYMPH NODES: No pathologically enlarged abdominal or pelvic lymph nodes. SOFT TISSUES/MUSCULOSKELETAL: Bilateral L5-S1 spondylosis with grade 1 anterolisthesis, unchanged. No acute fractures or focal osseous lesions. CT/CT abdomen pelvis wo IV con IMPRESSION: 1. No acute pathology of the abdomen or pelvis on this noncontrast study. 2. Large gallstone measuring 2.[address] evidence of cholecystitis. 3. Prostamegaly. Fleischner guidelines were followed.
[2024-02-14 19:57] VITALS: BP 123/46; PULSE 58; RESP 18; TEMP 36.6; O2SAT 99; BMI 23.7
[2024-02-14 20:20] LABS: Basophils Percent Auto 0.5 % (0-2); Eosinophils Absolute Auto 0.1 X10*3/uL (0.0-0.4); Eosinophils Percent Auto 1.3 % (0-4); Hematocrit 40.4 % (42.0-52.0); Hemoglobin 14.1 g/dl (14.0-18.0); Imm Gran Abs Auto 0.01 X10*3/uL (0.00-0.03); Imm Gran Pct Auto 0.3 % (0.0-0.4); Lymphocytes Absolute Auto 1.8 X10*3/uL (1.2-4.9); Lymphocytes Percent Auto 46.7 % (20-40); MANUAL DIFF FLAG SCAN; Mean Corpuscular HGB Conc 34.9 g/dl (31.0-36.0); Mean Corpuscular Hemoglobin 31.3 pg (27.0-33.0); Mean Corpuscular Volume 89.8 fL (80.0-98.0); Mean Platelet Volume 10.7 fL (9.4-12.4); Monocytes Absolute Auto 0.9 X10*3/uL (0.1-1.2); Monocytes Percent Auto 24.8 % (2-11); Neutrophils Percent Auto 26.4 % (45-73); Platelet Count 191 X10*3/uL (160-400); Red Cell Distribution Width 13.6 % (11.0-16.0); SCAN SMEAR FLAG 1; White Blood Count 3.8 X10*3/uL (4.8-10.8)
[2024-02-14 20:35] LABS: Alanine Aminotransferase 152 U/L (0-40); Albumin Level 3.9 g/dL (3.5-5.0); Alkaline Phosphatase 117 U/L (39-117); Anion Gap 9 (12-20); Aspartate Amino Transferase 96 U/L (5-37); Bilirubin Direct 0.4 mg/dL (0.0-0.5); Bilirubin Total 1.2 mg/dL (0.0-1.0); Blood Urea Nitrogen 9 mg/dL (9-16); Calcium 8.7 mg/dL (8.4-10.2); Carbon Dioxide 28 mmol/L (22-29); Chloride 110 mmol/L (96-108); Creatinine Clr Calc Pharmacy 69.9; Estimated Glomerular Filt Rate > 60; Glucose Random 124 mg/dL (60-115); Lipase 6 U/L (8-78); Potassium 4.1 mmol/L (3.3-5.1); Sodium 143 mmol/L (135-145); Total Protein 6.9 g/dL (6.5-8.0)
[2024-02-14 20:54] LABS: SLIDE REVIEW VERIFIED
[2024-02-14 22:02] VITALS: BP 102/60; PULSE 64; RESP 16; TEMP 36.6; O2SAT 100
--- NOTE | 2024-02-14 22:03 | ED.ABDPAIN ---
HPI - Abdominal Pain General Chief Complaint: Abdominal Pain Stated Complaint: abd pain Time Seen by Provider: 02/14/24 22:01 Source: patient Mode of arrival: ambulatory Limitations: no limitations History of Present Illness HPI narrative: Patient history of chronic constipation complaining of pain in mid abdominal area since yesterday no nausea no vomiting had a small bowel movement earlier today feels hungry no previous operations at last colonoscopy which was normal Related Data Previous Rx's Medication Instructions Recorded atorvastatin 20 mg tablet 20 mg PO BEDTIME 90 days #90 tabs 11/06/23 empagliflozin 10 mg tablet 10 mg PO DAILY #90 tabs 11/06/23 (Jardiance) metformin 1,000 mg tablet 1,000 mg PO BID 90 days #180 tabs 11/06/23 tamsulosin 0.4 mg capsule (Flomax) 0.4 mg PO DAILY #30 caps 01/08/24 Allergies Allergy/AdvReac Type Severity Reaction Status Date / Time No Known Allergies Allergy Verified 02/14/24 19:57 Review of Systems Review of Systems Yes all other systems are reviewed and are negative [facility] Past Medical History Surgical History No pertinent past surgical history Hx of colonoscopy Family History Family History Father No family history of cancer Mother No family history of cancer Social History Social History Housing: Apartment Alcohol intake: never Patient Tobacco Use Status: Never used Tobacco Smoked in Last 30 Days: No e-Cigarette/Vaping Use: Never Used Second Hand Smoke Exposure: No Use of substances other than those prescribed or required for medical reasons: No Advance Directives: No Advance Directives Information Provided: No service: No Current occupational status: retired Cognitive needs: No Hearing needs: No Vision needs: No Physical Exam ED Vital Signs: Vital Signs - 24 hr 02/14/24 19:57 02/14/24 22:02 02/15/24 00:32 Temperature 97.8 F 97.8 F 97.8 F Pulse Rate 58 64 64 Respiratory Rate 18 16 16 Blood Pressure 123/46 L 102/60 102/60 Pulse Oximetry 99 100 100 Oxygen Delivery Method Room Air Room Air Room Air BMI result Body Mass Index 23.7 Appearance: Alert. Oriented X3. No acute distress. Eyes: No pallor or icterus ENT: Pharynx normal. Oral Mucosa moist Neck: Normal inspection. Neck supple. CVS: Normal heart rate and rhythm. Pulses normal. Respiratory: No respiratory distress. Equal air entry bilateral, no wheezing/rales/rhonchi Abdomen: Soft mild deep midabdominal tenderness no rebound tenderness or guarding Bowel sounds are present, no mass palpable, no CVA tenderness Skin: Skin warm and dry. Normal skin color. Normal skin turgor. Extremities: No lower extremity edema. No calf tenderness Neuro: Oriented X 3. No motor deficit. Medical Decision Making Medical Decision Making [facility] Narrative: Patient with nonspecific umbilical pain CT scan negative for acute pathology except for 2.6 cm gallstone which is unlikely causing the pain has slightly elevated liver function tests patient advised to stop Tylenol and atorvastatin follow with PCP Differential Diagnosis Differential Diagnoses: The differential diagnosis associated with the presentation includes Umbilical hernia/gallstones/kidney stone slight diverticulosis Lab Data [facility] Lab Attestation statement: I reviewed the patient's lab results. 02/14/24 20:14 02/14/24 20:14 Labs: Lab Results 02/14/24 02/14/24 Range/Units 20:14 22:19 WBC 3.8 L (4.8-10.8) X10*3/uL RBC 4.50 L (4.60-5.80) X10*6/uL Hgb 14.1 (14.0-18.0) g/dl Hct 40.4 L (42.0-52.0) % MCV 89.8 (80.0-98.0) fL MCH 31.3 (27.0-33.0) pg MCHC 34.9 (31.0-36.0) g/dl RDW 13.6 (11.0-16.0) % Plt Count 191 (160-400) X10*3/uL MPV 10.7 (9.4-12.4) fL Immature Gran % (Auto) 0.3 (0.0-0.4) % Neut % (Auto) 26.4 L (45-73) % Lymph % (Auto) 46.7 H (20-40) % [place] % (Auto) 24.8 H (2-11) % Eos % (Auto) 1.3 (0-4) % Baso % (Auto) 0.5 (0-2) % Lymph # (Auto) 1.8 (1.2-4.9) X10*3/uL [place] # (Auto) 0.9 (0.1-1.2) X10*3/uL Eos # (Auto) 0.1 (0.0-0.4) X10*3/uL Baso # (Auto) 0.0 (0.0-0.2) X10*3/uL Abs Immat Gran (auto) 0.01 (0.00-0.03) X10*3/uL Absolute Neuts (auto) 1.0 L (2.0-8.3) x10*3/uL Absolute Nucleated RBC 0.000 (0.0-0.012) X10*3/uL Nucleated RBC % (auto) 0.0 (0.0-0.2) /100WBC Smear Tech's Comments VERIFIED Sodium 143 (135-145) mmol/L Potassium 4.1 (3.3-5.1) mmol/L Chloride 110 H (96-108) mmol/L Carbon Dioxide 28 (22-29) mmol/L Anion Gap 9 L (12-20) BUN 9 (9-16) mg/dL Creatinine 0.83 (0.5-1.4) mg/dL Estim Creat Clear Calc 69.9 Estimated GFR > 60 Random Glucose 124 H (60-115) mg/dL Calcium 8.7 (8.4-10.2) mg/dL Total Bilirubin 1.2 H (0.0-1.0) mg/dL Direct Bilirubin 0.4 (0.0-0.5) mg/dL AST 96 H (5-37) U/L ALT 152 H (0-40) U/L Alkaline Phosphatase 117 (39-117) U/L Total Protein 6.9 (6.5-8.0) g/dL Albumin 3.9 (3.5-5.0) g/dL Lipase 6 L (8-78) U/L Urine Color Yellow Urine Appearance Clear Urine pH 7.5 (5.0-9.0) Ur Specific [place] 1.010 (1.005-1.025) Urine Protein Negative (Neg-Trace) mg/dL Urine Glucose (UA) Negative (Negative) mg/dL Urine Ketones Negative (Negative) mg/dL Urine Blood Negative (Negative) Urine Nitrite Negative (Negative) Ur Leukocyte Esterase Negative (Negative) Independent Interpretation I performed an independent interpretation of an: Ultrasound and CT Scan Radiology Impression Discussion of test interpretation with radiology: I have reviewed the radiologist's reading. Discharge Plan Discharge Clinical Impression: Gallstone, Elevated liver enzymes Patient Disposition: Home, Self-Care Instructions: Gallstones (ED) Additional Instructions: You have a large gallstone in slightly elevated liver enzymes Do not take Tylenol/atorvastatin/alcohol Follow-up with surgeon/PCP in next 1 week to recheck your liver enzymes Avoid fried food Tiene un c?lculo biliar sebastian con enzimas hep?lyndsay ligeramente elevadas. No tome Tylenol/atorvastatina/alcohol Lacey un seguimiento con el cirujano/PCP en la pr?xima semana para volver a controlar sandi enzimas hep?lyndsay. Evite la comida frita Prescriptions: No Action metformin 1,000 mg tablet 1,000 mg PO BID 90 Days Qty: 180 5RF atorvastatin 20 mg tablet 20 mg PO BEDTIME 90 Days Qty: 90 5RF Jardiance 10 mg tablet 10 mg PO DAILY Qty: 90 3RF tamsulosin [Flomax] 0.4 mg capsule 0.4 mg PO DAILY Qty: 30 2RF Rx Instructions: Taking the evening with dinner daily Referrals: Joshua Valentin MD [Physician] - 1 week Interventions: ED Discharge Assessment Last Done: 02/15/24 00:32 Discharge Date/Time: 02/15/24 00:35 Print Language: Slovenian
[2024-02-14 22:37] LABS: Appearance Urine Clear; Color Urine Yellow; Glucose Urine UA Negative (Negative); Leukocyte Esterase Urine Negative (Negative); Nitrite Urine Negative (Negative); PH 7.5 (5.0-9.0); Urine Blood Negative (Negative); Urine Ketones Negative (Negative); Urine Protein Negative (Neg-Trace)
[2024-02-15 00:32] VITALS: BP 102/60; PULSE 64; RESP 16; TEMP 36.6; O2SAT 100
== END 2024-02-15 00:35 | disposition home or self-care (01) ==
PROVIDERS: Emergency Provider Internal Medicine; PCP Nurse Practitioner Family
DX: K80.20 Calculus of gallbladder without cholecystitis without obstruction (principal); R79.89 Other specified abnormal findings of blood chemistry; R10.9 Unspecified abdominal pain
CPT/HCPCS: 36415; 74176; 80053; 81003; 82248; 83690; 85025; 99284

== ENCOUNTER 2024-02-23 11:18 | Outpatient (AMB) | payer MEDICARE, SELFPAY ==
--- NOTE | 2024-02-23 11:27 | MHC.OFFVIS ---
Intake Vital Signs 02/23/24 11:35 Height 5 ft 5 in Weight 145 lb BMI 24.1 BP 136/64 Blood Pressure Location Rt brachial Position Sitting Pulse 61 Intake Visit Reasons: Gallstones, [facility] [place] [facility] 02/14/24 Intake Note: This patient presents for an assessment for Gallstones, [facility] [place] [facility] 02/14/24. Pt c/o; reports intermittent epigastric pain, reports constipation, reports nausea, no vomiting. Supervisor Machining Required: Yes Supervisor Machining Language: Corporate Financial Analyst Name: Monisha Information Interpreted: non-clinical & clinical Accompanied by: Self / Same As Patient Allergies No Known Allergies Allergy (Verified 02/23/24 11:44) Medication List - Last Reconciled 02/23/24 by Joshua Valentin MD atorvastatin 20 mg PO BEDTIME 90 days empagliflozin (Jardiance) 10 mg PO DAILY metformin 1,000 mg PO BID 90 days tamsulosin (Flomax) 0.4 mg PO DAILY HPI Gallstones, [facility] [place] [facility] 02/14/24 HPI Details 73-year-old male referred by the ER for a gallstone. The patient went to the ER last 02/14/2024 for vague umbilical pain. He had a CAT scan at that time which showed a large gallstone without cholecystitis He has had no further episodes of pain since then. He denies any right upper quadrant pain or tenderness. He has good oral intake. He also had some slight elevation of his bilirubin during his ER visit. He denies any GI complaints at this time. He says he feels well overall. [facility] Surgical History No pertinent past surgical history Hx of colonoscopy Family History Father No family history of cancer Mother No family history of cancer Social History Housing: Apartment Alcohol intake: never Patient Tobacco Use Status: Never used Tobacco e-Cigarette/Vaping Use: Never Used Second Hand Smoke Exposure: No service: No Current occupational status: retired Cognitive needs: No Hearing needs: No Vision needs: No Review of Systems Const Denies chills and Denies fever(s) Card Denies chest pain, Denies dyspnea and Denies dyspnea on exertion Resp Denies cough, Denies dyspnea and Denies dyspnea on exertion GI Denies hematochezia and Denies change in bowel habits Denies hematuria and Denies difficulty urinating Musc Denies back pain and Denies limited range of motion Neuro Denies focal weakness and Denies convulsions Psych Denies depression and Denies mood swings Physical Exam Vital Signs: Last Vital Signs Pulse 61 02/23/24 11:35 BP 136/64 02/23/24 11:35 BMI result Body Mass Index 24.1 Const General: comfortable and no acute distress Orientation/consciousness: patient oriented x3 Neck Neck: Yes no lymphadenopathy Resp Auscultation: clear to auscultation bilaterally Cardio Rhythm: regular rhythm GI Palpation (GI): Soft to palpation, nontender and no guarding Neuro General: patient oriented x3 Assessment & Plan Assessment & Plan (1) Gallstone: Code(s): K80.20 - Calculus of gallbladder without cholecystitis without obstruction Plan: He has what appears to be an incidental finding of a gallstone on a CT scan. He does not seem to have any symptoms. He denies any right upper quadrant pain or tenderness. He denies any GI complaints with oral intake I explained to him that in the absence of symptoms, we can hold off on doing cholecystectomy. I did explain to him the technique of laparoscopic cholecystectomy and possible open cholecystectomy. I reviewed the risks including but not limited to bleeding, infections, injury to other organs including bowel and the common bile duct, as well as the benefits and alternatives He says he understands. He is comfortable with the plan. He says he will come back to the office if he has right upper quadrant pain or symptoms that may be related to the gallbladder. Coding Level of Care Code New Pt Level 3 (47553) Diagnoses Gallstone K80.20
[2024-02-23 11:35] VITALS: BP 136/64; PULSE 61; BMI 24.1
== END 2024-02-23 11:48 | disposition home or self-care (01) ==
PROVIDERS: PCP Nurse Practitioner Family; Visit Provider Surgery
DX: K80.20 Calculus of gallbladder without cholecystitis without obstruction (principal)
CPT/HCPCS: 99203

== ENCOUNTER → 2024-02-23 11:18 | Outpatient (BNVA) | payer MEDICARE, SELFPAY | PROVIDERS: PCP Nurse Practitioner Family; Visit Provider Surgery | DX: K80.20 Calculus of gallbladder without cholecystitis without obstruction (principal) | CPT/HCPCS: 99202 ==

== ENCOUNTER 2024-03-09 06:41 | Day surgery (SDC) | payer MEDICARE, SELFPAY ==
[2024-03-04 17:19] VITALS: BMI 24.1
--- NOTE | 2024-03-04 17:27 | PC.NURSE ---
Patient contacted for PAT. 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 Patient states I have not taken my metformin or Jardiance for about 1 week, I ran out of meds and need to get more from the doctor . Patient aware not to take Jardiance for 3 days preop. Patient also aware he should start his metformin alison, but not to take it the morning of his procedure. Patient also voiced that he does not check his sugars as he has not yet picked up his glucometer. Patient made aware that the nurses will check his sugar preop on day of surgery.
[2024-03-09 07:20] VITALS: BP 140/66; PULSE 63; RESP 15; TEMP 36.3; O2SAT 98
[2024-03-09 07:29] LABS: Glucose, Whole Blood 163 mg/dL (60-115)
[2024-03-09] MEDS: Lactated Ringers 1,000 ML 100 ML IVCONT (07:39)
--- NOTE | 2024-03-09 08:40 | HO.ANESPROP2 ---
Documented by User: Sheba Hewitt NP 03/08/24 09:45 HPI - Anesthesia Eval Consult details Narrative: 73yo M for Left Hydrocele Repair Anesthesia Pre-Procedure Meds Is the patient on any of the following meds?: Any other SGL-1 drugs or drugs that delay gastric emptying (Jardiance) PMFSH Active Problems Active Problems: All Active Problems BPH loc w urin obs/LUTS (Acute) Weak urinary stream (Acute) Elevated TSH (Acute) Enlarged prostate (Acute) Enlargement of scrotal sac (Acute) Diabetes (Acute) Screening for colon cancer (Acute) Screening for prostate cancer (Acute) Physical exam (Acute) Past Medical History Medical History (Updated 03/09/24 @ 07:10 by Tayler Barksdale RN) Elevated cholesterol Diabetes Family History Family History Father No family history of cancer Mother No family history of cancer Family history of problems with anesthesia: No Surgical History Surgical History No pertinent past surgical history Hx of colonoscopy History of Problems with Anesthesia: No Social History Social History Housing: Apartment Alcohol intake: never Patient Tobacco Use Status: Former Tobacco user Quit Date: 2003 Tobacco use type: Cigarette Smoked in Last 30 Days: No e-Cigarette/Vaping Use: Never Used Second Hand Smoke Exposure: No Use of substances other than those prescribed or required for medical reasons: No Are you DNR?: No Advance Directives: No Advance Directives Information Provided: Yes Advance Directives on File: No Recently lost weight without trying: No How much weight loss: Not applicable Eating poorly because of decreased appetite: No Nutrition screen score: 0 Nutrition Risks: No Nutritional Risk Poor oral hygiene: Yes (missing teeth) service: No Current occupational status: retired Cognitive needs: No Hearing needs: No Vision needs: No Meds Allergies Allergy/AdvReac Type Severity Reaction Status Date / Time No Known Allergies Allergy Verified 03/09/24 07:10 Exam Height,Weight and Vital Signs: Height 5 ft 5 in Weight 65.771 kg Assessment and Plan Assessment Anesthesia Assessment: Chart Reviewed Final Anesthetic Review Family History of Problems with Anesthesia: No History of Problems with Anesthesia: No Documented by User: Tayler Briggs DO 03/09/24 08:41 HPI - Anesthesia Eval Anesthesia Pre-Procedure Meds Is the patient on any of the following meds?: Any other SGL-1 drugs or drugs that delay gastric emptying (Jardiance) If Yes to any meds - educate patient: Pt education - increased risk of aspiration PMFSH Past Medical History Medical History (Updated 03/09/24 @ 07:10 by Tayler Barksdale RN) Elevated cholesterol Diabetes Family History Family History Father No family history of cancer Mother No family history of cancer Family history of problems with anesthesia: No Surgical History Surgical History No pertinent past surgical history Hx of colonoscopy History of Problems with Anesthesia: No Social History Social History Housing: Apartment Alcohol intake: never Patient Tobacco Use Status: Former Tobacco user Quit Date: 2003 Tobacco use type: Cigarette Smoked in Last 30 Days: No e-Cigarette/Vaping Use: Never Used Second Hand Smoke Exposure: No Use of substances other than those prescribed or required for medical reasons: No Are you DNR?: No Advance Directives: No Advance Directives Information Provided: Yes Advance Directives on File: No Recently lost weight without trying: No How much weight loss: Not applicable Eating poorly because of decreased appetite: No Nutrition screen score: 0 Nutrition Risks: No Nutritional Risk Poor oral hygiene: Yes (missing teeth) service: No Current occupational status: retired Cognitive needs: No Hearing needs: No Vision needs: No Meds Allergies Allergy/AdvReac Type Severity Reaction Status Date / Time No Known Allergies Allergy Verified 03/09/24 07:10 Exam Exam Date and Time: March 09, 2024 0838 Height,Weight and Vital Signs: Height 5 ft 5 in Weight 65.771 kg Vital Signs Temperature 97.4 F 03/09/24 07:20 Pulse Rate 63 03/09/24 07:20 Respiratory Rate 15 03/09/24 07:20 Blood Pressure 140/66 H 03/09/24 07:20 Pulse Oximetry 98 03/09/24 07:20 Oxygen Delivery Method Room Air 03/09/24 07:20 Temperature 97.4 F 03/09/24 07:20 Pulse Rate 63 03/09/24 07:20 Respiratory Rate 15 03/09/24 07:20 Blood Pressure 140/66 H 03/09/24 07:20 Pulse Oximetry 98 03/09/24 07:20 Oxygen Delivery Method Room Air 03/09/24 07:20 Airway Mallampati Class: II TM Dist: >3cm Neck ROM: Full Loose/Missing/Broken Teeth: No (patient denies any loose or broken teeth) Heart: S1S2 Lungs: CTAB Assessment and Plan Assessment Anesthesia Assessment: Anesthesia Plan Discussed and Chart Reviewed Final Anesthetic Review Family History of Problems with Anesthesia: No History of Problems with Anesthesia: No NPO: Yes ASA Class: II Final Preanesthetic Review: No Changes in Pt Med Stat, Meds/Allgs Chart Reviewed, Consent Obtained/Reviewed (pipefitter helper at bedside in pre-op for translation) and Anes Risks/Benef Reviewed Patient Risk: Low Procedure Risk: Low Anesthetic Plan Anesthetic Plan: GA and Agree w/ Assess. and Plan Disposition: Standard PACU
--- NOTE | 2024-03-09 08:51 | MHC.SHP ---
Pre-Procedural Eval Section A - 24 Hr Update-Section A only Date of Service: 03/09/24 The patient is an INPATIENT: No The patient has been examined within 24 hours of the surgical procedure. The History & Physical has been completed within 30 days and I have reviewed it.: Yes Section B - Complete if H&P > 30 days Chief Complaint: Left Hydrocele, unspecified Allergies: Allergies Allergy/AdvReac Type Severity Reaction Status Date / Time No Known Allergies Allergy Verified 03/09/24 07:10 Plan Diagnosis/Plan: Unchanged I have reviewed the history and physical and performed a pertinent physical examination on my patient. No changes have occurred unless specified. Left Hydrocelectomy. Time Spent With Patient Time: Total time managing care of this patient today ____ minutes.
--- NOTE | 2024-03-09 10:20 | W.PM.OPN ---
Operative Note Operative Note Date of Service: 03/09/24 Narrative: PreOperative Diagnosis:? ? Left hydrocele Post Operative Diagnosis: Left hydrocele Procedure: Left hydrocelectomy, excision of hydrocele sac Surgeon:?Dr Jose Chaparro Anesthesia:? General Procedure: After informed consent was verified the patient was brought to the operating room and placed in a supine position.? Anesthesia was performed per protocol. The patient was prepped and draped in the usual sterile fashion. Safety pause time-out was performed. Antibiotics confirmed. A marker was used to alena the median raphe. Attention was taken to the left hemiscrotum A horizontal incision was made through the skin with a 15 blade knife, cautery was used to incise the dartos fascia, the plane between the dartos fascia and the tunical vaginalis is developed with blunt dissection. the testicle was delivered into the operative field. The gubernaclar attachments are taken down with electrocautery. The tunica vaginalis was opened with sharp dissection vertically in the midline, the hydrocele fluid was drained and suctioned, the hydrocele fluid was clear yellow, sample sent for cytology. The hydrocele sac was opened in the midline, a purple was noted within the sac and sent to pathology. The appendix testis was removed with cautery and sent to pathology along with a portion of the sac that was sent to pathology, the tunica vaginalis was wrapped posteriorly and the edges were oversewn with 3-0 chromic. Cautery was used for hemostasis. The dartos fascia was closed with running locking 3-0 chromic and the skin was closed with interrupted 3-0 chromic there was good hemostasis noted. The patient tolerated the procedure well and was transferred to the recovery area upon completion. Complications: None Drains: None
[2024-03-09 10:30] VITALS: BP 114/61; PULSE 77; RESP 18; TEMP 36.9; O2SAT 99
[2024-03-09 10:35] VITALS: BP 129/55; PULSE 74; RESP 18; O2SAT 99
[2024-03-09 10:40] VITALS: BP 125/64; PULSE 81; RESP 16; O2SAT 97
[2024-03-09 10:45] VITALS: BP 125/64; PULSE 88; RESP 16; O2SAT 97
[2024-03-09 10:54] VITALS: BP 140/77; PULSE 83; RESP 16; TEMP 36.7; O2SAT 96
== END 2024-03-09 11:44 | disposition home or self-care (01) ==
PROVIDERS: PCP Nurse Practitioner Family; Visit Provider Urology
PROC: (CPT 55060; principal; 2024-03-09 08:40)
DX: N43.3 Hydrocele, unspecified (principal); N40.1 Benign prostatic hyperplasia with lower urinary tract symptoms; R39.12 Poor urinary stream; E11.9 Type 2 diabetes mellitus without complications; E78.00 Pure hypercholesterolemia, unspecified; Z79.84 Long term (current) use of oral hypoglycemic drugs; Z87.891 Personal history of nicotine dependence
CPT/HCPCS: 55040; 82947; 88112; 88302; 88304; J0131; J0665; J0690; J1100; J1885; J2405; J2704; J3010

== ENCOUNTER → 2024-03-09 06:41 | Outpatient (BNV) | payer MEDICARE, SELFPAY | PROVIDERS: PCP Nurse Practitioner Family; Visit Provider Urology | DX: N43.3 Hydrocele, unspecified (principal) | CPT/HCPCS: 55040 ==

== ENCOUNTER 2024-04-08 08:53 | Outpatient (AMB) | payer MEDICARE, SELFPAY ==
--- NOTE | 2024-04-08 08:58 | A.OFFVIS_ITS ---
Intake Visit Reasons: Excision of Hydrocele- Follow up Intake Note: Patient presents today for Post Op Hydrocele: Meds- None Allergies to Antibiotic- No Known Allergies Blood Thinner- None Building Maintenance Technician Required: Yes Building Maintenance Technician Language: Splicing Supervisor Name: DARON Hernández/STEPHANIE BULLOCK Information Interpreted: non-clinical & clinical Accompanied by: Self / Same As Patient Allergies No Known Allergies Allergy (Verified 04/08/24 08:59) HPI Comments Details: 04/08/24--Kenny is status post left hydrocelectomy. On examination scrotum as well healed. The patient states he is doing well. Certified cold working supervisor present. The patient is here with his grandson. Urinalysis - leukocytes negative blood negative. I want him to continue the tamsulosin daily. 01/08/24--Kenny is a 73-year-old [place]-speaking male. Certified cold working supervisor present. He is here for evaluation for urinary symptoms of weak stream, nocturia. He denies gross hematuria or dysuria. He also has scrotal swelling. Denies significant testicular pain. I reviewed scrotal ultrasound 08/26/2023--left hydrocele. 04/08/2024-- Plan: Flomax 0.4 mg daily. PSA screening. [facility] Medical History Elevated cholesterol Diabetes Surgical History History of hydrocelectomy Hx of colonoscopy Family History Father No family history of cancer Mother No family history of cancer Social History Housing: Apartment Alcohol intake: never Patient Tobacco Use Status: Former Tobacco user Quit Date: 2003 Tobacco use type: Cigarette e-Cigarette/Vaping Use: Never Used Second Hand Smoke Exposure: No service: No Current occupational status: retired Cognitive needs: No Hearing needs: No Vision needs: No Review of Systems Const All systems reviewed & are unremarkable except as noted in HPI and below Reports no additional complaints Eyes Reports no additional complaints ENT Reports no additional complaints Card Reports no additional complaints Resp Reports no additional complaints GI Reports no additional complaints Reports as per HPI Musc Reports no additional complaints Skin/Breast Reports system reviewed and no additional complaints, except as documented Neuro Reports no additional complaints Psych Reports no additional complaints Endo Reports no additional complaints Riley/Lymph Reports no additional complaints Aller/Immun Reports no additional complaints Physical Exam Const General: healthy appearing, no acute distress and well developed Orientation/consciousness: patient oriented x3 HEENT Head: Yes normocephalic and Yes atraumatic Eyes Conjunctivae: conjunctivae normal Neck Neck: Yes normal visual inspection Chest Chest palpation & inspection: normal inspection of the chest Resp Effort & Inspection: normal respiratory effort Penis: normal penis Scrotum: scrotum normal Skin General skin exam: no rashes or lesions noted Neuro General: patient oriented x3 Psych Appearance: grossly normal Affect: normal affect Results AMB Urinalysis, Automated UA Leukoctes 0 Payam/uL Last Edit by DARON Hernández on 04/08/24 09:07 UA Nitrite Negative Last Edit by DARON Hernández on 04/08/24 09:07 UA Urobilinogen 0.2 mg/dL Last Edit by DARON Hernández on 04/08/24 09:0 7 UA Protein 0 mg/dL Last Edit by DARON Hernández on 04/08/24 09:07 UA pH 6.5 Last Edit by DARON Hernández on 04/08/24 09:07 UA Blood 0 Quinn/uL Last Edit by DARON Hernández on 04/08/24 09:07 UA Specific [place] 1.015 Last Edit by DARON Hernández on 04/08/24 09: 07 UA Ketone Negative Last Edit by DARON Hernández on 04/08/24 09:07 UA Bilirubin 0 mg/dL Last Edit by DARON Hernández on 04/08/24 09:07 UA Glucose 0 mg/dL Last Edit by DARON Hernández on 04/08/24 09:07 Results Reviewed Results Reviewed: Laboratory Last Values Urine pH (Auto) 6.5 04/08/24 09:02 Specific [place] (Auto) 1.015 04/08/24 09:02 Urine Protein (Auto) 0 mg/dL 04/08/24 09:02 Glucose (UA)(Auto) 0 mg/dL 04/08/24 09:02 Urine Ketones (Auto) Negative 04/08/24 09:02 Urine Blood (Auto) 0 Quinn/uL 04/08/24 09:02 Urine Nitrite (Auto) Negative 04/08/24 09:02 Urine Bilirubin (Auto) 0 mg/dL 04/08/24 09:02 Urine Urobilinogen (Auto) 0.2 mg/dL 04/08/24 09:02 Leukocyte Esterase (Auto) 0 Payam/uL 04/08/24 09:02 Assessment & Plan Assessment & Plan (1) Enlarged prostate: Code(s): N40.0 - Benign prostatic hyperplasia without lower urinary tract symptoms Category: Medical (2) Weak urinary stream: Code(s): R39.12 - Poor urinary stream Category: Medical (3) BPH loc w urin obs/LUTS: Code(s): N40.1 - Benign prostatic hyperplasia with lower urinary tract symptoms Category: Medical (4) Hydrocele: Code(s): N43.3 - Hydrocele, unspecified Category: Medical Plan Continue tamsulosin daily. Follow-up in October 2024 PSA prior. Orders: Orders AMB Urinalysis Automated Today Z13.9 - Encounter for screening, unspecified PSA,Total (Free>4and<10) 10/08/24 N40.0 - Benign prostatic hyperplasia without lower urinary tract symptoms, N40.1 - Benign prostatic hyperplasia with lower urinary tract symptoms Medications: Refilled tamsulosin (Flomax) Taking the evening with dinner daily 0.4 mg PO DAILY 90 caps 3RF Patient Instructions: The patient had an opportunity to ask questions regarding treatment plan. The patient expressed understanding and agreement with the above treatment plan. The patient is aware they should contact our office by phone for worsening of their current condition or the appearance of new symptoms. Compliance is encouraged with any medications and followup testing that is ordered. It is a privilege to be allowed the opportunity to participate in the urologic care of your patient. If you have any questions or concerns regarding treatment for the above conditions please do not hesitate to contact me. The office telephone contact is [phone]. This note is constructed in part using voice recognition software. While every effort has been made to ensure accuracy sales support assistant errors may have been included. Yours sincerely, Jose Chaparro MD Coding Level of Care Code Est Pt Level 4 (02959) Diagnoses Enlarged prostate N40.0 Weak urinary stream R39.12 BPH loc w urin obs/LUTS N40.1 Hydrocele N43.3
== END 2024-04-08 09:41 | disposition home or self-care (01) ==
PROVIDERS: PCP Nurse Practitioner Family; Visit Provider Urology
DX: N40.1 Benign prostatic hyperplasia with lower urinary tract symptoms (principal); R39.12 Poor urinary stream; N43.3 Hydrocele, unspecified; Z13.9 Encounter for screening, unspecified
CPT/HCPCS: 99024

== ENCOUNTER → 2024-04-08 08:53 | Outpatient (BNVA) | payer MEDICARE, SELFPAY | PROVIDERS: PCP Nurse Practitioner Family; Visit Provider Urology | DX: N40.1 Benign prostatic hyperplasia with lower urinary tract symptoms (principal); R39.12 Poor urinary stream; N43.3 Hydrocele, unspecified | CPT/HCPCS: 81003; 99212 ==

== ENCOUNTER 2024-04-08 10:13 | Outpatient (AMB) | payer MEDICARE, SELFPAY ==
--- NOTE | 2024-04-08 10:42 | MHC.PC.OV ---
Vital Signs 04/08/24 10:47 Weight 147 lb BP 140/80 H Blood Pressure Location Lt brachial Position Sitting Pulse 74 Pulse Source Pulse Oximeter Pulse Oximetry (%) 98 Oxygen Delivery Method Room Air Intake Visit Reasons: diabetic follow-up Intake Note: Patient here for diabetes. Allergies No Known Allergies Allergy (Verified 04/08/24 10:48) Medication List - Last Reconciled 04/08/24 by SIMRAN Perez atorvastatin 20 mg PO BEDTIME 90 days empagliflozin 25 mg PO DAILY losartan 25 mg PO DAILY metformin 1,000 mg PO BID 90 days tamsulosin (Flomax) 0.4 mg PO DAILY Tobacco use date assessed: 04/08/24 Fall risk assessment: No Falls in past year Last assessed Fall Risk: 04/08/24 Dental Screening Dental Screen Date: 11/06/23 HPI diabetic follow-up HPI Details Pt is a diabetic, on a statin. A1C in office today is 7.9. Microalbumin is up to date. Denies polyuria, polydipsia, and neuropathy. Pt denies any signs and symptoms of hypoglycemia and does know how to correct it. Pt has been out of jardiance for approximately 1 month. Will increase from 10mg to 25mg, start with half a tab for one week. Will also start low-dose losartan for BP and renal protection. Will refer to nurse navigator for diabetes education. Eye exam is scheduled. Pt's relative is in the room to help translate. [facility] Medical History Elevated cholesterol Diabetes Surgical History History of hydrocelectomy Hx of colonoscopy Family History Father No family history of cancer Mother No family history of cancer Social History Housing: Apartment Alcohol intake: never Patient Tobacco Use Status: Former Tobacco user Quit Date: 2003 Tobacco use type: Cigarette e-Cigarette/Vaping Use: Never Used Second Hand Smoke Exposure: No service: No Current occupational status: retired Cognitive needs: No Hearing needs: No Vision needs: No Questionnaire PHQ-9 Over the last 2 weeks, how often have you been bothered by any of the following problems? 53402 - PHQ-9 Billing: Patient declined-do not bill Source: Developed by Drs. Naif Milton, Mireille Palacios, Bola Spicer and colleagues, with an educational jennifer from [employer]. Thrive Questionnaire Date Thrive assessed: 04/08/24 I am a: Patient What is your living situation today?: I have a steady place to live Within the past 12 months, did the food you bought not last and you didn't have the money to get more?: Never true Within the past 12 months, did you worry whether your food would run out before you got money to buy more?: Never true Do you have trouble paying for medicines?: Yes Do you have trouble getting transportation to medical appointments?: Yes Do you have trouble paying your heating and electricity bill?: No Do you have trouble taking care of your child, family member or friend?: No Do you have trouble with day-to-day activities such as bathing, preparing meals, shopping, managing finances, etc.?: No Are you currently unemployed and looking for a job?: No Are you interested in more education?: No Currently or been in a relationship where the following occur: I choose not to answer this question THRIVE Score: 1 SUZAN-7 AMB Questionnaire SUZAN-7 Date SUZAN - 7 assessed: 04/08/24 Source: Developed by Drs. Naif Milton, Mireille Palacios, Bola Spicer and colleagues, with an educational jennifer from [employer]. SUZAN-7 Assessment Billing SUZAN-7 Assessment Tool: pt declined-do not bill Review of Systems Const Reports as per HPI Physical exam (Primary Care) Vital Signs: Last Vital Signs Pulse 74 04/08/24 10:47 BP 140/80 H 04/08/24 10:47 Pulse Ox 98 04/08/24 10:47 Oxygen Delivery Method Room Air 04/08/24 10:47 Tobacco/Smoking Status: Tobacco use Status Tobacco use date assessed 04/08/24 04/08/24 10:50 Patient Tobacco Use Status Former Tobacco user 04/08/24 10:43 Tobacco use type Cigarette 04/08/24 10:43 e-Cigarette/Vaping Use Never Used 04/08/24 10:43 Thrive Assessment: Date of Thrive Assessment Date Thrive assessed 11/06/23 04/08/24 10:43 Currently or been in a relationship where the following occur: I choose not to answer this question Const General: cooperative Orientation/consciousness: patient oriented x3 Resp Effort & Inspection: normal respiratory effort Auscultation: clear to auscultation bilaterally Cardio Rate: regular rate Rhythm: regular rhythm Heart sounds: S1 normal heart sound present and S2 normal heart sound present Neuro General: patient oriented x3 Extrem Other: bilat feet: + sensation with use of monofilament, feet intact Psych Appearance: grossly normal Mental Status: mental status grossly normal Speech and movement: Normal speech and movement present Affect: normal affect Attitude: cooperative Thought process: Normal thought process present Thought content: Normal thought content present Insight: Good insight present (Psych) Judgement: Good judgement present (Psych) Results AMB Urinalysis, Automated UA Leukoctes 0 Payam/uL Last Edit by DARON Hernández on 04/08/24 09:07 UA Nitrite Negative Last Edit by DARON Hernández on 04/08/24 09:07 UA Urobilinogen 0.2 mg/dL Last Edit by DARON Hernández on 04/08/24 09:07 UA Protein 0 mg/dL Last Edit by DARON Hernández on 04/08/24 09:07 UA pH 6.5 Last Edit by DARON Hernández on 04/08/24 09:07 UA Blood 0 Quinn/uL Last Edit by DARON Hernández on 04/08/24 09:07 UA Specific [place] 1.015 Last Edit by DARON Hernández on 04/08/24 09:07 UA Ketone Negative Last Edit by DARON Hernández on 04/08/24 09:07 UA Bilirubin 0 mg/dL Last Edit by DARON Hernández on 04/08/24 09:07 UA Glucose 0 mg/dL Last Edit by DARON Hernández on 04/08/24 09:07 AMB Hemoglobin A1c AMB Hemoglobin A1c 7.4 % Last Edit by Meagan Hawk [facility] on 04/08/24 11:24 Assessment and Plan Assessment & Plan (1) Diabetes: Code(s): E11.9 - Type 2 diabetes mellitus without complications Plan: Increasing jardiance from 10mg to 25mg, start with half a tab for 1 week, referred to nurse navigator Plan The patient agreed to the use of a special forces medical sergeant for this encounter. Scribed for PB Sarkar- by Lily De Guzman special forces medical sergeant, on 04/08/2024 at 10:55 EST. Orders: Orders Comprehensive [place]. Panel Fast Today E11.9 - Type 2 diabetes mellitus without complications UA CC w/rflx Micro + Cult Today E11.9 - Type 2 diabetes mellitus without complications AMB Hemoglobin A1c Today Z13.9 - Encounter for screening, unspecified Complete Blood Count Auto Diff Today E11.9 - Type 2 diabetes mellitus without complications TSH reflex Free T4 Today E11.9 - Type 2 diabetes mellitus without complications Lipid Panel Today E11.9 - Type 2 diabetes mellitus without complications Referrals Nurse Navigator Referral E11.9 - Type 2 diabetes mellitus without complications Medications: New losartan 25 mg PO DAILY 90 tabs 0RF Changed From empagliflozin (Jardiance) 10 mg PO DAILY 90 tabs 3RF To empagliflozin 25 mg PO DAILY 90 tabs 3RF From empagliflozin 25 mg PO DAILY 90 tabs 3RF To empagliflozin take 1/2 tab for 1 week, then go to full tab 25 mg PO DAILY 90 tabs 3RF Coding Level of Care Code Est Pt Level 3 (31578) Diagnoses Diabetes E11.9
[2024-04-08 10:47] VITALS: BP 140/80; PULSE 74; O2SAT 98
== END 2024-04-08 14:42 | disposition home or self-care (01) ==
PROVIDERS: PCP Nurse Practitioner Family; Visit Provider Nurse Practitioner Family
DX: E11.9 Type 2 diabetes mellitus without complications (principal)
CPT/HCPCS: 83036; 99213

== ENCOUNTER 2024-05-10 08:34 | Outpatient (AMB) | payer MEDICARE, SELFPAY ==
--- NOTE | 2024-05-10 08:35 | A.OFFVIS_ITS ---
Vital Signs 05/10/24 08:41 Weight 146 lb BP 143/66 H Blood Pressure Location Rt brachial Position Sitting Pulse 56 Intake Visit Reasons: Gallstones symptomatic Intake Note: This patient presents for an assessment for symptomatic gallstones. Patient c/o; reports RUQ pain, reports nausea, reports no vomiting. Arts Administrator Or Manager Required: Yes Arts Administrator Or Manager Language: Therapist'S Assistant Name: Monisha Information Interpreted: non-clinical & clinical Accompanied by: Self / Same As Patient Allergies No Known Allergies Allergy (Verified 05/10/24 08:42) HPI HPI Gallstones symptomatic: Details: 74-year-old male here for a follow-up for gallstones. I had seen him in January 2024 because of gallstones seen on a CT scan on a visit to the ER for mid abdominal pain. At that time, his symptoms did not appear to be typical for gallbladder disease. However for the past month, he describes having periodic right upper quadrant pain. This does not seem to have significant precipitating factors He has good oral intake and denies GI complaints. [facility] Medical History Elevated cholesterol Diabetes Surgical History History of hydrocelectomy Hx of colonoscopy Family History Father No family history of cancer Mother No family history of cancer Social History Housing: Apartment Alcohol intake: never Patient Tobacco Use Status: Former Tobacco user Tobacco use type: Cigarette e-Cigarette/Vaping Use: Never Used Second Hand Smoke Exposure: No service: No Current occupational status: retired Cognitive needs: No Hearing needs: No Vision needs: No Review of Systems Const Denies chills and Denies fever(s) Card Denies chest pain, Denies dyspnea and Denies dyspnea on exertion Resp Denies cough, Denies dyspnea and Denies dyspnea on exertion GI Denies hematochezia and Denies change in bowel habits Denies hematuria and Denies difficulty urinating Musc Denies back pain and Denies limited range of motion Neuro Denies focal weakness and Denies convulsions Psych Denies depression and Denies mood swings Physical Exam Vital Signs: Last Vital Signs Pulse 56 05/10/24 08:41 BP 143/66 H 05/10/24 08:41 Const General: comfortable and no acute distress Orientation/consciousness: patient oriented x3 Neck Neck: Yes no lymphadenopathy Resp Auscultation: clear to auscultation bilaterally Cardio Rhythm: regular rhythm GI Palpation (GI): Soft to palpation, nontender and no guarding Neuro General: patient oriented x3 Assessment & Plan Assessment & Plan (1) Gallstone: Code(s): K80.20 - Calculus of gallbladder without cholecystitis without obstruction Category: Medical Plan: He is known to me for gallstones which had been previously asymptomatic. He now describes having periodic right upper quadrant pain for the past month. He wants to proceed with cholecystectomy. I explained to him the technique of laparoscopic cholecystectomy and possible conversion to open cholecystectomy. I reviewed the risks including but not limited to bleeding, infections, injury to other organs including bowel, liver and the bile ducts, bile leak, retained stones, as well as the benefits and alternatives. He says he understands and wants to proceed Coding Level of Care Code Est Pt Level 3 (72379) Diagnoses Gallstone K80.20
[2024-05-10 08:41] VITALS: BP 143/66; PULSE 56
== END 2024-05-10 08:55 | disposition home or self-care (01) ==
PROVIDERS: PCP Nurse Practitioner Family; Visit Provider Surgery
DX: K80.20 Calculus of gallbladder without cholecystitis without obstruction (principal)
CPT/HCPCS: 99214

== ENCOUNTER → 2024-05-10 08:34 | Outpatient (BNVA) | payer MEDICARE, SELFPAY | PROVIDERS: PCP Nurse Practitioner Family; Visit Provider Surgery | DX: K80.20 Calculus of gallbladder without cholecystitis without obstruction (principal) | CPT/HCPCS: 99212 ==

== ENCOUNTER 2024-06-29 07:01 | Day surgery (SDC) | payer MEDICARE, SELFPAY ==
--- NOTE | 2024-06-14 09:21 | HO.ANESPROP2 ---
Documented by User: Sheba Hewitt NP 06/22/24 12:16 HPI - Anesthesia Eval Consult details Narrative: 74yo M for Cholecystectomy Laparoscopic,possible open, 06/29/24 Anesthesia Pre-Procedure Meds Is the patient on any of the following meds?: SGLT2 Inhib PMFSH Active Problems Active Problems: All Active Problems BPH loc w urin obs/LUTS (Acute) Weak urinary stream (Acute) Elevated TSH (Acute) Enlarged prostate (Acute) Enlargement of scrotal sac (Acute) Diabetes (Acute) Screening for colon cancer (Acute) Screening for prostate cancer (Acute) Physical exam (Acute) Past Medical History Medical History Elevated cholesterol Diabetes Family History Family History Father No family history of cancer Mother No family history of cancer Family history of problems with anesthesia: No Surgical History Surgical History History of hydrocelectomy Hx of colonoscopy History of Problems with Anesthesia: No Social History Social History Housing: Apartment Alcohol intake: never Patient Tobacco Use Status: Former Tobacco user Tobacco use type: Cigarette e-Cigarette/Vaping Use: Never Used Second Hand Smoke Exposure: No Use of substances other than those prescribed or required for medical reasons: No Are you DNR?: No Advance Directives: No Advance Directives Information Provided: Yes service: No Current occupational status: retired Cognitive needs: No Hearing needs: No Vision needs: No Meds Allergies Allergy/AdvReac Type Severity Reaction Status Date / Time No Known Allergies Allergy Verified 05/10/24 08:42 Exam Pertinent Lab Results Pertinent Lab Results: Laboratory Tests 02/14/24 20:14 WBC 3.8 L Hgb 14.1 Hct 40.4 L Plt Count 191 Sodium 143 Potassium 4.1 Chloride 110 H Carbon Dioxide 28 BUN 9 Creatinine 0.83 Narrative Narrative: EKG 2022 Vent. Rate : 064 BPM Atrial Rate : 064 BPM P-R Int : 168 ms QRS Dur : 096 ms QT Int : 392 ms P-R-T Axes : 051 -30 040 degrees QTc Int : 404 ms Normal sinus rhythm Left axis deviation Abnormal ECG No previous ECGs available Assessment and Plan Assessment Anesthesia Assessment: Chart Reviewed Final Anesthetic Review Family History of Problems with Anesthesia: No History of Problems with Anesthesia: No Documented by User: Moises Arnett MD 06/29/24 09:41 PMFSH Past Medical History Medical History Elevated cholesterol Diabetes Family History Family History Father No family history of cancer Mother No family history of cancer Surgical History Surgical History History of hydrocelectomy Hx of colonoscopy Social History Social History Housing: Apartment Alcohol intake: never Patient Tobacco Use Status: Former Tobacco user Tobacco use type: Cigarette e-Cigarette/Vaping Use: Never Used Second Hand Smoke Exposure: No Use of substances other than those prescribed or required for medical reasons: No Are you DNR?: No Advance Directives: No Advance Directives Information Provided: Yes service: No Current occupational status: retired Cognitive needs: No Hearing needs: No Vision needs: No Meds Allergies Allergy/AdvReac Type Severity Reaction Status Date / Time No Known Allergies Allergy Verified 05/10/24 08:42 Exam Airway Mallampati Class: II TM Dist: <=3cm Neck ROM: Full Heart: ok Lungs: ok Assessment and Plan Assessment Anesthesia Assessment: Anesthesia Plan Discussed Final Anesthetic Review NPO: Yes ASA Class: II and III Final Preanesthetic Review: No Changes in Pt Med Stat, Meds/Allgs Chart Reviewed, Consent Obtained/Reviewed and Anes Risks/Benef Reviewed Patient Risk: Intermediate Procedure Risk: Intermediate Anesthetic Plan Anesthetic Plan: GA and Agree w/ Assess. and Plan Disposition: Standard PACU
[2024-06-29 07:57] VITALS: BP 121/70; PULSE 58; RESP 18; TEMP 36.1; O2SAT 98
[2024-06-29 08:00] VITALS: BMI 27.3
[2024-06-29 08:08] LABS: Glucose, Whole Blood 133 mg/dL (60-115)
[2024-06-29] MEDS: Lactated Ringers 1,000 ML 100 ML IVCONT (08:16)
--- NOTE | 2024-06-29 09:10 | MHC.SHP ---
Pre-Procedural Eval Section A - 24 Hr Update-Section A only Date of Service: 06/29/24 Section B - Complete if H&P > 30 days Chief Complaint: Calculus of gallbladder without cholecystitis Details of Present Illness: Has gallstones on a CT scan, admits to some occasional right upper quadrant pain and wants to proceed with cholecystectomy Relevant Family History (Specify if Yes): No Relevant Social History: None Present Medications: see Short Stay Collaborative assessment Medical History: Significant History (Elevated TSH, BPH, diabetes) Allergies: Allergies Allergy/AdvReac Type Severity Reaction Status Date / Time No Known Allergies Allergy Verified 05/10/24 08:42 Review of Systems Sugical H&P ROS: Negative: Constitution, Cardiovascular, Respiratory, Neurological, Psychiatric, Hem-Onc, Allergic/Immunologic, Gastrointestinal, Genitourinary, Musculoskeletal, Integumentary, Endocrine and Eyes/Ears/Nose/Throat Exam Surgical H&P Exam: Normal: HEENT, Normal: Heart, Normal: Lungs, Normal: Extremities, Normal: Abdomen, Normal: Skin and Normal: Neurological Plan Diagnosis/Plan: Unchanged I have reviewed the history and physical and performed a pertinent physical examination on my patient. No changes have occurred unless specified. Time Spent With Patient Time: Total time managing care of this patient today ____ minutes.
--- NOTE | 2024-06-29 10:53 | P.OP_ITS ---
Operative Note Operative Note Date of Service: 06/29/24 Narrative: Preop diagnosis: Symptomatic gallstones Postop diagnosis: The same Procedure: Laparoscopic cholecystectomy Surgeon: Joshua Valentin MD research program assistant: IVETH Burnette The patient is a 74-year-old male with known gallstones, with some symptoms and wanted to proceed with cholecystectomy. He understood the technique of the planned procedure as well as the risks, benefits, and alternatives He was brought to the operating room. He was placed supine under general anesthesia via endotracheal tube. The abdomen was prepped and draped in the usual sterile fashion. A surgical time-out was done. The patient received Cefotan 2 g IV preoperatively I made a short incision on the supraumbilical margin using blade 15. This was carried down through the full-thickness of the skin subcutaneous fat. The fa scia was incised. The peritoneum was entered. Through this incision a Chavez port was introduced. Pneumoperitoneum was introduced to a pressure of 15 mm Hg. From here on the rest of the procedure was done under vision with the laparoscope. With laparoscopic visualization using a 10 mm scope, I proceeded to insert a 5/12 mm port in the epigastric area below the subcostal margin. Two 5 mm ports introduced a small incision below the subcostal margin along the anterior axillary line and the midclavicular line. Graspers were placed through these working ports. The patient was placed in head up and [id number] position. We are able to apply the grasper on the fundus of the gallbladder this was used to retract the gallbladder cephalad. By doing so was able to visualize the gallbladder distally. I applied a grasper towards the neck. This was used to retract the gallbladder laterally. I then proceeded to identify the cystic duct. We carefully stripped the peritoneum off of what appeared to be the neck of the gallbladder. We then realized that the common bile duct was very intimately related to the inferior border of the neck. We had to carefully separate this from the neck of the gallbladder using blunt dissection with the [place] dissector. By doing so was able to identify the cystic duct. I was able to confirm the confluence of the cystic with the neck of the gallbladder. I was able to separate this completely from the adherent common bile duct earlier. I was able to visualize the cystic artery as well. I was able to achieve a critical view of the hepatocystic triangle at this point. We could clearly see the common bile duct away from the inferior border of the gallbladder. There were no other tubular structures in the area. I therefore applied clips on the cystic duct with 2 clips being applied distally. The cystic duct was transected between clips with endoscissors. I define the cystic artery as well and 2 clips were applied distally and this was transected between clips. There there were some small fibrous bands that were clipped and divided between clips as well We then proceeded to retract the gallbladder away from the liver bed. I proceeded to use the electrocautery spatula to incised the peritoneum of the gallbladder wall. I then proceeded to use a combination of blunt dissection with the tip of the spatula as well as electrocautery itself to define a plane of dissection between the gallbladder wall and the liver bed. I carefully the gallbladder along this well-defined plane of dissection all with the fundus anterior the entire gallbladder was completely from the liver bed. Gallbladder was retrieved through an endobag through the umbilical incision. I reinserted all ports and re-insufflated. I examined the liver bed. I cauterized oozing areas. I observed all 4 quadrants. There was no other pathology or any evidence of any bowel injury I re-examined the subhepatic space. There was note of good hemostasis. There was evidence of any bile leak I therefore desufflated through the port sites. I removed all ports under vision with the laparoscope. The umbilical port was removed last. The fascia of the umbilical incision was closed with a [id number] Polysorb 0 stitch. Skin closure was achieved on all incisions using Polysorb 4-0 subcuticular running sutures. All incisions were infiltrated with Marcaine 0.5% for postop analgesia. Steri- Strips and dressings were applied. The procedure was then complete.d The patient tolerated procedure well. There were no immediate complications. Initial and final counts of sponges and instruments were correct. Estimated blood loss was about 25 cc The patient was extubated without difficulty and transferred to the recovery room with stable vital signs.
[2024-06-29 11:02] VITALS: BP 128/54; PULSE 67; RESP 16; TEMP 36.1; O2SAT 95
[2024-06-29 11:07] VITALS: BP 138/67; PULSE 60; RESP 16; O2SAT 97
[2024-06-29 11:12] VITALS: BP 122/59; PULSE 66; RESP 15; O2SAT 99
[2024-06-29 11:17] VITALS: BP 125/59; PULSE 60; RESP 13; O2SAT 100
[2024-06-29 11:32] VITALS: BP 131/61; PULSE 55; RESP 18; TEMP 36.3; O2SAT 98
== END 2024-06-29 12:45 | disposition home or self-care (01) ==
PROVIDERS: PCP Nurse Practitioner Family; Visit Provider Surgery
PROC: 0FT44ZZ Resection of Gallbladder, Percutaneous Endoscopic Approach (ICD-10-PCS; CPT 47562; principal; 2024-06-29 09:30)
DX: K80.12 Calculus of gallbladder with acute and chronic cholecystitis without obstruction (principal); E78.00 Pure hypercholesterolemia, unspecified; E11.9 Type 2 diabetes mellitus without complications; Z79.84 Long term (current) use of oral hypoglycemic drugs; Z79.899 Other long term (current) drug therapy; Z87.891 Personal history of nicotine dependence; Z98.890 Other specified postprocedural states
CPT/HCPCS: 47562; 82947; 88304; J2405; J2704; J2795; J3010

== ENCOUNTER → 2024-06-29 07:01 | Outpatient (BNV) | payer MEDICARE, SELFPAY | PROVIDERS: PCP Nurse Practitioner Family; Visit Provider Surgery | DX: K80.20 Calculus of gallbladder without cholecystitis without obstruction (principal) | CPT/HCPCS: 47562 ==

== ENCOUNTER 2024-07-13 08:48 | Outpatient (AMB) | payer MEDICARE, SELFPAY ==
--- NOTE | 2024-07-13 08:52 | MHC.PC.OV ---
Vital Signs 07/13/24 08:53 Height 5 ft 0.5 in Weight 142 lb BMI 27.3 BP 118/70 Blood Pressure Location Rt brachial Position Sitting Pulse 58 Pulse Source Pulse Oximeter Pulse Oximetry (%) 96 Intake Visit Reasons: CATARACTS - NO EKG/LABS Intake Note: pt is here for cataracts pre op - no EKG or labs needed, patient had A1c done in office today Allergies No Known Allergies Allergy (Verified 07/13/24 08:54) Tobacco use date assessed: 04/08/24 Fall risk assessment: No Falls in past year Last assessed Fall Risk: 07/13/24 Dental Screening Dental Screen Date: 07/13/24 Did you have a dental visit in the last 12 months?: Yes Did you have a dental problem in the last 6 months where you did not have access to dental care?: No Was dental information given to patient?: Patient has dentist HPI CATARACTS - NO EKG/LABS HPI Details Pt is here for a pre-op evaluation. He is scheduled to undergo bilat cataract surgery. Will do an EKG in office. A1C in office today is 6.6. Encouraged pt to have labs drawn, though he does not need them for pre-op. Pt recently underwent a laparoscopic cholecystectomy. He is following up with general surgery. Pt is cleared for surgery from my standpoint. [facility], [facility] Medical History Elevated cholesterol Diabetes Surgical History History of laparoscopic cholecystectomy (~06/29/24) History of hydrocelectomy Hx of colonoscopy Family History Father No family history of cancer Mother No family history of cancer Social History Housing: Apartment Alcohol intake: never Patient Tobacco Use Status: Former Tobacco user Tobacco use type: Cigarette e-Cigarette/Vaping Use: Never Used Second Hand Smoke Exposure: No service: No Current occupational status: retired Cognitive needs: No Hearing needs: No Vision needs: No Questionnaire PHQ-9 Over the last 2 weeks, how often have you been bothered by any of the following problems? 1. Little interest or pleasure in doing things: nearly every day 2. Feeling down, depressed, or hopeless: not at all 3. Trouble falling or staying asleep, or sleeping too much: not at all 4. Feeling tired or having little energy: several days 5. Poor appetite or overeating: not at all 6. Feeling bad about yourself - or that you are a failure or have let yourself or your family down: not at all 7. Trouble concentrating on things, such as reading the newspaper or watching television: not at all 8. Moving or speaking so slowly that other people could have noticed. Or the opposite - being so fidgety or restless that you have been moving around a lot more than usual: not at all 9. Thoughts that you would be better off or of hurting yourself in some way: nearly every day Total score: 7 Depression Screening Interpretation: Negative Depression Screening Done: Yes 65309 - PHQ-9 Billing: Yes Source: Developed by Drs. Naif Milton, Mireille Palacios, Bola Spicer and colleagues, with an educational jennifer from [employer]. Thrive Questionnaire Date Thrive assessed: 07/13/24 I am a: Patient What is your living situation today?: I have a steady place to live Within the past 12 months, did the food you bought not last and you didn't have the money to get more?: Never true Within the past 12 months, did you worry whether your food would run out before you got money to buy more?: Never true Do you have trouble paying for medicines?: No Do you have trouble getting transportation to medical appointments?: No Do you have trouble paying your heating and electricity bill?: No Do you have trouble taking care of your child, family member or friend?: No Do you have trouble with day-to-day activities such as bathing, preparing meals, shopping, managing finances, etc.?: No Are you currently unemployed and looking for a job?: Yes Are you interested in more education?: Yes Please select the resources that you would like help with: Housing/Fci Currently or been in a relationship where the following occur: No concerns reported THRIVE Score: 0 AUDIT C Alcohol Use Questionnaire (AUDIT-C) 1. How often do you have a drink containing alcohol?: Never 3. How often do you have six or more drinks on one occasion?: Never Total Score: 0 Score Reviewed/Action Taken: Yes SUZAN-7 AMB Questionnaire SUZAN-7 Date SUZAN - 7 assessed: 07/13/24 Feeling nervous, anxious, or on edge: 0 = Not at all Not being able to stop or control worryin = Not at all Worrying too much about different things: 0 = Not at all Trouble relaxin = Not at all Being so restless that it is hard to sit still: 0 = Not at all Becoming easily annoyed or irritable: 0 = Not at all Feeling afraid as if something awful might happen: 0 = Not at all Total SUZAN-7 score (0-4 normal; 5-9 mild; 10-14 moderate; 15-21 severe): 0 Source: Developed by Drs. Naif Milton, Mireille Palacios, Bola Spicer and colleagues, with an educational jennifer from [employer]. SUZAN-7 Assessment Billing SUZAN-7 Assessment Tool: SUZAN-7 Assessment 70495 Review of Systems Const Denies chills and Denies fever(s) Eyes Denies blurry vision ENT Denies vertigo, Denies dizziness and Denies sore throat Card Denies chest pain at rest, Denies chest pain with activity, Denies diaphoresis, Denies dyspnea and Denies dyspnea on exertion Resp Denies cough, Denies dyspnea, Denies dyspnea on exertion and Denies wheezing GI Denies abdominal pain, Denies melena, Denies hematochezia, Denies constipation, Denies diarrhea and Denies loose stools Denies hematuria Musc Denies numbness and Denies tingling Skin/Breast Denies lesions Neuro Denies vertigo, Denies dizziness, Denies numbness and Denies tingling Psych Denies anxiety, Denies depression, Denies homicidal ideation, Denies suicidal ideation and Denies other (substance abuse) Aller/Immun Denies wheezing Physical exam (Primary Care) Vital Signs: Last Vital Signs Pulse 58 07/13/24 08:53 BP 118/70 07/13/24 08:53 Pulse Ox 96 07/13/24 08:53 BMI result Body Mass Index 27.3 Tobacco/Smoking Status: Tobacco use Status Tobacco use date assessed 04/08/24 07/13/24 08:56 Patient Tobacco Use Status Former Tobacco user 07/13/24 08:56 Tobacco use type Cigarette 07/13/24 08:56 e-Cigarette/Vaping Use Never Used 07/13/24 08:56 PHQ-9: PHQ-9 Score PHQ-9: Total score 7 07/13/24 09:05 Depression Screening Interpretation: Negative Thrive Assessment: Date of Thrive Assessment Date Thrive assessed 07/13/24 07/13/24 08:56 Currently or been in a relationship where the following occur: No concerns reported Const General: cooperative Nutritional Appearance: well nourished Orientation/consciousness: patient oriented x3 Neck Neck: Yes no lymphadenopathy Resp Effort & Inspection: normal respiratory effort Auscultation: clear to auscultation bilaterally Cardio Rate: bradycardic Rhythm: regular rhythm Heart sounds: S1 normal heart sound present and S2 normal heart sound present Skin Other: lap sites well approximated, no signs of infection Neuro General: patient oriented x3 Psych Appearance: grossly normal Mental Status: mental status grossly normal Speech and movement: Normal speech and movement present Affect: normal affect Attitude: cooperative Thought process: Normal thought process present Thought content: Normal thought content present Insight: Good insight present (Psych) Judgement: Good judgement present (Psych) Results AMB Hemoglobin A1c AMB Hemoglobin A1c 6.6 % Last Edit by Cuong Rojas CMA on 07/13/24 09:11 Results Reviewed Results Reviewed: Laboratory Last Values Hgb A1c (Clinic) 6.6 % (4.0-6.0) H 07/13/24 09:11 Assessment and Plan Assessment & Plan (1) Pre-op evaluation: Code(s): Z01.818 - Encounter for other preprocedural examination Plan: EKG done in office, encouraged to get labs drawn (though not needed for pre-op clearance) Plan The patient agreed to the use of a product manager medical device for this encounter. Scribed for SIMRAN Sarkar by Lily De Guzman product manager medical device, on 07/13/2024 at 09:00 EST. Orders: Orders AMB EKG-In Office Today Z01.818 - Encounter for other preprocedural examination AMB Hemoglobin A1c Today Z13.9 - Encounter for screening, unspecified Coding Level of Care Code Est Pt Prev Care >65y(02248) Diagnoses Pre-op evaluation Z01.818 Additional Codes SUZAN-7 Assessment Billing - SUZAN-7 Assessment Tool: SUZAN-7 Assessment 22024 ([id number])
[2024-07-13 08:53] VITALS: BP 118/70; PULSE 58; O2SAT 96; BMI 27.3
== END 2024-07-13 09:32 | disposition home or self-care (01) ==
PROVIDERS: PCP Nurse Practitioner Family; Visit Provider Nurse Practitioner Family
DX: Z01.818 Encounter for other preprocedural examination (principal); E11.9 Type 2 diabetes mellitus without complications
CPT/HCPCS: 83036; 93000; 99214

== ENCOUNTER 2024-07-15 15:11 | Outpatient (AMB) | payer MEDICARE, SELFPAY ==
[2024-07-15 15:17] VITALS: BMI 27.3
--- NOTE | 2024-07-15 15:17 | MHC.OFFVIS ---
Vital Signs 07/15/24 15:17 Height 5 ft 0.5 in Weight 142 lb BMI 27.3 Intake Visit Reasons: s/p lap jacky Intake Note: This patient presents for a post-op assessment status post laparoscopic cholecystectomy. Pt c/o; reports feels well overall, reports good appetite, reports no changes in bowel movements. 06/29/2024: Lap Jacky Plastic Battery Assembler Required: Yes Plastic Battery Assembler Language: Stone Fabricator Services: Plastic Battery Assembler Present Plastic Battery Assembler Name: Monisha Information Interpreted: non-clinical & clinical Accompanied by: Self / Same As Patient Allergies No Known Allergies Allergy (Verified 07/15/24 15:18) HPI HPI s/p lap jacky: Details: He underwent laparoscopic cholecystectomy last 06/29/2024 as an outpatient. He tolerated procedure well. He currently denies significant complaints. He has good oral intake and denies GI complaints. [facility] Medical History (Updated 07/15/24 @ 15:30 by Joshua Valentin MD) Gallstones Elevated cholesterol Diabetes Surgical History History of laparoscopic cholecystectomy (~06/29/24) History of hydrocelectomy Hx of colonoscopy Family History Father No family history of cancer Mother No family history of cancer Social History Housing: Apartment Alcohol intake: never Patient Tobacco Use Status: Former Tobacco user Tobacco use type: Cigarette e-Cigarette/Vaping Use: Never Used Second Hand Smoke Exposure: No service: No Current occupational status: retired Cognitive needs: No Hearing needs: No Vision needs: No Review of Systems Const Denies chills and Denies fever(s) Card Denies chest pain, Denies dyspnea and Denies dyspnea on exertion Resp Denies cough, Denies dyspnea and Denies dyspnea on exertion GI Denies hematochezia and Denies change in bowel habits Denies hematuria and Denies difficulty urinating Musc Denies back pain and Denies limited range of motion Neuro Denies focal weakness and Denies convulsions Psych Denies depression and Denies mood swings Physical Exam Vital Signs: BMI result Body Mass Index 27.3 Const General: comfortable and no acute distress Eyes Other: Anicteric GI Other: All incisions well healed Palpation (GI): Soft to palpation, not firm, nontender and no guarding Assessment & Plan Assessment & Plan (1) Gallstones: Code(s): K80.20 - Calculus of gallbladder without cholecystitis without obstruction Category: Medical Plan: Status post laparoscopic cholecystectomy. He is doing very well postoperatively. All incisions are well healed. His path report shows acute and chronic cholecystitis. He was advised to avoid lifting more than 20 lb for at least 2 more weeks. He can follow up on a p.r.n. basis. Coding Level of Care Code Global (25388) Diagnoses Gallstones K80.20
== END 2024-07-15 15:19 | disposition home or self-care (01) ==
PROVIDERS: PCP Nurse Practitioner Family; Visit Provider Surgery
DX: K80.20 Calculus of gallbladder without cholecystitis without obstruction (principal)
CPT/HCPCS: 99024

== ENCOUNTER → 2024-07-15 15:11 | Outpatient (BNVA) | payer MEDICARE, SELFPAY | PROVIDERS: PCP Nurse Practitioner Family; Visit Provider Surgery | DX: Z09 Encounter for follow-up examination after completed treatment for conditions other than malignant neoplasm (principal); Z90.49 Acquired absence of other specified parts of digestive tract | CPT/HCPCS: 99212 ==

== ENCOUNTER 2024-12-06 07:21 | Outpatient (AMB) | payer MEDICARE, SELFPAY ==
--- NOTE | 2024-12-06 07:25 | MHC.OFFVIS ---
Intake Visit Reasons: Pre-Op/OK per MA Allergies No Known Allergies Allergy (Verified 07/15/24 15:18) HPI HPI Pre-Op/OK per MA: Details: History of Present Illness The patient is a 74-year-old male presenting with the need for a preoperative assessment for cataract surgery. The planned surgery is due to cataracts, which involve both eyes, with the right eye scheduled for surgery first, followed by the left. The surgery is set to commence at the end of this month, extending into the beginning of the next month. There is no reported history of systemic symptoms such as fever or chills, which could complicate the surgical procedure. No current illnesses or signs of infection were reported, indicating a stable condition for the upcoming surgical intervention. The patient, with the assistance of his grandson as a performing arts technicians, confirmed that there are no new or worsening symptoms that could impede the planned cataract surgery. It is noted that laboratory tests ordered in March are yet to be completed, and they should be conducted soon, although they are not seen as a barrier to the surgery proceeding as scheduled. Review of Systems - General: Denies fever, denies chills - Respiratory: Denies shortness of breath - Cardiovascular: Denies chest pain Plan - I will proceed with clearing the patient for the scheduled cataract surgery at the end of the month. - Labs previously ordered in March should be completed soon to ensure optimal health status prior to surgery. Patient was informed and verbally consented to the use of an ambient scribe for clinic note documentation during this visit. Discussion Notes I discussed with the patient, via his grandson who served as a performing arts technicians, the plan for the scheduled cataract surgery. The patient has been cleared for the procedure as no contraindications or signs of systemic illness were reported. I emphasized the importance of completing the pending laboratory work, which was ordered in March, though these are not considered urgent enough to delay the surgery. I reassured them that the surgery is straightforward, with plans to first address the cataract in the right eye, followed by the left. The patient appeared understanding, and arrangements are in place to proceed as planned. Patient Instructions - Ensure laboratory tests ordered in March are completed as soon as possible. - Monitor for any new symptoms or changes in health and report them promptly. - Follow all preoperative instructions for cataract surgery at the end of the month. - Arrange transportation and assistance for the day of surgery if needed. [facility] Medical History (Updated 07/15/24 @ 15:30 by Joshua Valentin MD) Gallstones Elevated cholesterol Diabetes Surgical History History of laparoscopic cholecystectomy (~06/29/24) History of hydrocelectomy Hx of colonoscopy Family History Father No family history of cancer Mother No family history of cancer Social History Housing: Apartment Alcohol intake: never Patient Tobacco Use Status: Former Tobacco user Tobacco use type: Cigarette e-Cigarette/Vaping Use: Never Used Second Hand Smoke Exposure: No service: No Current occupational status: retired Cognitive needs: No Hearing needs: No Vision needs: No Telehealth Telehealth Telehealth Platform: Telephone Location of provider rendering services: practice address Location of patient: address on file Patient Identification confirmed using: Name, : Yes Telehealth method: voice only Patient verbally consented to treatment: Yes Patient verbally consented to billing insurance company: Yes Patient informed of any privacy concerns related to visit: Yes Minutes spent on Phone/Video with Pt.: 12 Assessment & Plan Assessment & Plan (1) Pre-op evaluation: Code(s): Z01.818 - Encounter for other preprocedural examination Category: Medical Plan . Coding Level of Care Code Tele Est Pt Level 3 (37867) Diagnoses Pre-op evaluation Z01.818
== END 2024-12-06 07:25 | disposition home or self-care (01) ==
LOC: HO.HMCC 07:21
PROVIDERS: PCP Nurse Practitioner Family; Visit Provider Nurse Practitioner Family
DX: Z01.818 Encounter for other preprocedural examination (principal)

== ENCOUNTER 2025-04-05 09:06 | Outpatient (AMB) | payer MEDICARE, SELFPAY ==
[2025-04-05 09:10] VITALS: BP 118/72; PULSE 60; O2SAT 97; BMI 28.0
--- NOTE | 2025-04-05 09:10 | A.OFFVIS_ITS ---
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 Services: Transportation Consultant Present Transportation Consultant Name: santosh Evans Information Interpreted: non-clinical & clinical Accompanied by: Other Relationship Allergies No Known Allergies Allergy (Verified 04/05/25 09:44) Medication List - Last Reconciled 04/05/25 by SIMRAN Perez atorvastatin 20 mg PO BEDTIME 90 days blood sugar diagnostic (CloudPayTouch Ultra Test strips) Test blood sugar once a day blood-glucose meter (Peatixuch Ultra2 Meter) As directed empagliflozin 25 mg PO DAILY ibuprofen 600 mg PO Q6H PRN lancets (FreeStyle Lancets) Test blood sugar once a day lancets (OneTouch Delica Plus Lancet) Test blood sugar once a day losartan 25 mg PO DAILY metformin 1,000 mg PO BID 90 days tamsulosin (Flomax) 0.4 mg PO DAILY Do you need a note to return to daycare/school/sports/work: No HPI [facility] G0439 HPI Details Chief Complaint The patient is here for a routine medical wellness visit and diabetes follow-up. History of Present Illness The patient is a 75-year-old male presenting for a medical wellness visit and diabetes management follow-up. He possesses a background of diabetes mellitus, with a current Hemoglobin A1c noted to be 7.3%. To further aid glycemic control, a GLP-1 receptor agonist will be introduced into the treatment plan. The patient reports no neuropathic symptoms or excessive thirst and urination. Regarding urologic history, an elevated PSA and benign prostatic hyperplasia have previously warranted urologic evaluations, although the patient is not currently seeing a urologist. While asymptomatic, repeat PSA testing has been arranged. Tamsulosin continues to be utilized without adverse events. The patient denies systemic or localized symptoms indicative of infection or significant illness. Hearing assessments have been advised due to reported difficulties. There is no personal history of pancreatitis and no significant family history of thyroid issues. Social History - The patient lives with his family and has a supportive nephew who assists with translation during medical appointments. - He has slight limitations in hearing c apabilities and is scheduled for audiometric evaluation. Health Maintenance - Hemoglobin A1c measured at 7.3%. - PSA lab work ordered for monitoring du e to a history of elevated levels. - Pneumococcal vaccination administered. - Colonoscopy is up to date. - Visual screening is current. - Scheduled for hearing tests. Review of Systems - Constitutional: Denies fevers, chills. - Cardiovascular: Denies chest pain, malini rtness of breath. - Endocrinology: Denies polyuria, polydi psia, neuropathy. - Respiratory: Denies shortness of breat h. - Genitourinary: Denies urinary frequenc y, incontinence. - Neurological: Denies blurred vision, n europathy. - Immune: Denies recent infections. Physical Exam General: Cooperative, healthy appearing, comfortable, no acute distress and well developed Orientation: Patient oriented x3 Limitations: No limitations Head: Normal to inspection Ears: Hearing slightly impaired, will schedule hearing tests Nose: Normal external nose present Face and sinus: Normal facial exam Eyes: Appearance normal, both eyes and all related structures Neck: Normal visual inspection and Yes full ROM Respiratory: Normal respiratory effort and able to speak in complete sentences. Clear to auscultation bilaterally Cardiovascular: Regular rate and rhythm. Normal S1 and S2 GI: Normal to inspection. Soft to palpation and nontender Skin: No rashes or lesions noted Neuro: Patient oriented x3, + sensation to BLE, onychomyocosis noted bilat (big toe nails) Extremities: Normal to inspection Results - Labs: Hemoglobin A1c 7.3%. - Tests and Diagnostics: PSA lab work or dered. Plan 1. 3%. Monitoring for potential medicati on effects was discussed and emphasized. For BPH and elevated PSA history, I have ordered PSA lab work and encouraged urologic follow-up. A pneumococcal vaccine was administered, and his preventative screenings are current. Notably, a hearing test was scheduled due to diminished auditory function.: Patient was informed and verbally consented to the use of an ambient scribe for clinic note documentation during this visit. Discussion Notes I have discussed with the patient and his translating nephew the importance of managing his diabetes through medication adjustment, emphasizing the role of the GLP-1 agonist, including the expected benefits, such as improved glycemic control, and potential side effects like nausea. We agreed on continuing a proactive evaluation of his prostate health through repeat PSA checks and the significance of routine urologic follow-up. Options and risks concerning his vaccinations and need for auditory testing were clarified. I advised them on necessary follow-up visits, completing ordered tests, and precautions. Patient Instructions - Please take new medication as directed and observe for any side effects. - Follow up with the urologist about [facility]. - Complete all scheduled lab tests, incl uding the PSA screening. - Attend the upcoming hearing test appoi ntment. - Return to the office if you experience any new or worsening symptoms. [facility] Medical History Gallstones Elevated cholesterol Diabetes Surgical History History of laparoscopic cholecystectomy (~06/29/24) History of hydrocelectomy Hx of colonoscopy Family History Father No family history of cancer Mother No family history of cancer Social History Housing: Apartment Alcohol intake: never Patient Tobacco Use Status: Former Tobacco user Tobacco use type: Cigarette e-Cigarette/Vaping Use: Never Used Second Hand Smoke Exposure: No service: No Current occupational status: retired Cognitive needs: No Hearing needs: No Vision needs: No Questionnaire Medicare Wellness Checkup [age] What gender do you identify with?: male During the past 4 weeks, how much have you been bothered by emotional problems such as feeling anxious, depressed, irritable, sad or downhearted, and blue?: not at all During the past 4 weeks, has your physical & emotional health limited your social activities with family, friends, neighbors, or groups?: not at all During the past 4 weeks, how much bodily pain have you generally had?: mild pain During the past 4 weeks, was someone available to help you if you needed & wanted help?: no, not at all During the past 4 weeks, what was the hardest physical activity you could do for at least 2 minutes?: moderate Can you get to places out of walking distance without help? (For eg., can you travel alone on buses, taxis or drive your car?): Yes Can you go shopping for groceries or clothes without someone's help?: Yes Can you prepare your own meals?: Yes Can you do your housework without help?: Yes Because of any health problems, do you need the help of another person with your personal care needs such as eating, bathing, dressing or getting around the house?: No Can you handle your own money without help?: Yes During the past 4 weeks, how would you rate your health in general?: very good During the past 4 weeks how have things been going for you?: pretty well Are you having difficulties driving your car?: not applicable, I don't use a car Do you always fasten your seat belt when you are in a car?: yes, usually During past 4 weeks, have you been bothered by the following: never: Falling or dizzy when standing up, Sexual problems?, Trouble eating well?, Teeth or denture problems?, Problems using the telephone? and Tiredness or fatigue? Have you fallen 2 or more times in the past year?: No Are you afraid of falling?: No Are you a smoker?: no During the past 4 weeks, how many drinks of wine, beer, or other alcoholic beverages did you have?: no alcohol at all Do you exercise for about 20 minutes 3 or more times a week?: yes, most of the time Have you been given information to help with the following?: yes: Keeping track of your medications? and no: Hazards in your house that might hurt you? How often do you have trouble taking medicines the way you have been told to take them?: sometimes I take medicine as prescribed How confident are you that you can control & manage most of your health problems?: very confident What is your race?: or origin or descent Mini Mental State Exam (MMSE) Orientation What is the (year) (season) (date) (day) (month)?: year, season, date, day and month Where are we (state) (county) (town or city) (hospital) (floor)?: state, town or city, hospital/clinic and floor Attention & Calculation (CHOOSE ONE) Spell WORLD backwards (DLROW): 0 letters Recall Ask patient to repeat the 3 items from question #3.: object 1 Language Show patient a wristwatch & ask what it is. Repeat for pencil.: watch Ask the patient to repeat the phrase 'No ifs, ands, or buts' after you.: correct Ask the patient to 'take a piece of paper with their right hand' 'fold paper in half' 'place paper on floor': take paper in right hand, fold paper in half and place paper on floor Print the sentence 'CLOSE YOUR EYES' on a piece. If patient actually closes eyes then score.: followed written direction Give patient a blank piece of paper & ask to write a sentence. Score if it contains a noun & verb.: sentence contains subject and verb Ask patient to copy figure of intersecting pentagons exactly. Score if all 10 angles & 2 intersects are included.: all 10 angles present & 2 are intersected Score Score: 18 Activity of Daily Living Bathing - sponge bath, tub bath or shower: receives no assistance (gets in/out by self, if usual bathing means Dressing - getting clothes from closets & drawers, including inner/outer garments & fasteners.: gets clothes & gets completely dressed without help Toileting - going to the 'toilet room' for urine/bowel elimination & cleaning self/arranging clothes: goes to toilet room, cleans self, arranges clothes without help Transfer: moves in & out of bed and chair without help (may use support object) Continence: controls urination/bowel movements completely by self Feeding: feeds self without help Total Score: 0 Information obtained from: patient Using telephone: independent Traveling: independent Shopping: independent Preparing meals: independent Housework: independent Taking medicine: independent Managing money: independent PHQ-9 Over the last 2 weeks, how often have you been bothered by any of the following problems? 1. Little interest or pleasure in doing things: not at all 2. Feeling down, depressed, or hopeless: not at all 3. Trouble falling or staying asleep, or sleeping too much: not at all 4. Feeling tired or having little energy: not at all 5. Poor appetite or overeating: not at all 6. Feeling bad about yourself - or that you are a failure or have let yourself or your family down: not at all 7. Trouble concentrating on things, such as reading the newspaper or watching television: not at all 8. Moving or speaking so slowly that other people could have noticed. Or the opposite - being so fidgety or restless that you have been moving around a lot more than usual: not at all 9. Thoughts that you would be better off or of hurting yourself in some way: not at all Total score: 0 Depression Screening Interpretation: Negative Depression Screening Done: Yes 72144 - PHQ-9 Billing: Yes Source: Developed by Drs. Naif Milton, Mireille Palacios, Bola Spicer and colleagues, with an educational jennifer from [employer]. SUZAN-7 AMB Questionnaire SUZAN-7 Date SUZAN - 7 assessed: 04/05/25 Feeling nervous, anxious, or on edge: 0 = Not at all Not being able to stop or control worryin = Not at all Worrying too much about different things: 0 = Not at all Trouble relaxin = Not at all Being so restless that it is hard to sit still: 0 = Not at all Becoming easily annoyed or irritable: 0 = Not at all Feeling afraid as if something awful might happen: 0 = Not at all Total SUZAN-7 score (0-4 normal; 5-9 mild; 10-14 moderate; 15-21 severe): 0 Source: Developed by Drs. Naif Milton, Mireille Palacios, Bola Spicer and colleagues, with an educational jennifer from [employer]. SUZAN-7 Assessment Billing SUZAN-7 Assessment Tool: SUZAN-7 Assessment 50465 Physical Exam Vital Signs: Last Vital Signs Pulse 60 04/05/25 09:10 BP 118/72 04/05/25 09:10 Pulse Ox 97 04/05/25 09:10 Oxygen Delivery Method Room Air 04/05/25 09:10 BMI result Body Mass Index 28.0 Results AMB Hemoglobin A1c AMB Hemoglobin A1c 7.3 % Last Edit by uCong Rojas CMA on 04/05/25 09: 41 Immunizations pneumoc 20-antolin conj-dip cr(PF) 0.5 mL IM syringe Performing Provider: SIMRAN Perez Performing Location: [facility] Administered by: Cuong Rojas CMA on 04/05/25 09:57 Dose Route Admin Location Dispensed Lot Number Expiration Date [facility] Test Preparer 0.5 mL IM Right Deltoid 0.5 mL [id number] 01/20/26 6741-1527-83 [employer] VIS Given Date VIS Provided VIS Publication Date 04/05/25 Single Vaccine 22 Eligibility Eligibility Date Funding Source Not VFC Eligible 04/05/25 Private Results Reviewed Results Reviewed: Laboratory Last Values Hgb A1c (Clinic) 7.3 % (4.0-6.0) H 04/05/25 09:40 Assessment & Plan Assessment & Plan (1) Diabetes: Code(s): E11.9 - Type 2 diabetes mellitus without complications (2) Screening for prostate cancer: Code(s): Z12.5 - Encounter for screening for malignant neoplasm of prostate (3) SALAMATOF (hard of hearing): Code(s): H91.90 - Unspecified hearing loss, unspecified ear (4) Encounter for annual wellness visit (AWV) in Medicare patient: Code(s): Z00.00 - Encounter for general adult medical examination without abnormal findings (5) Elevated TSH: Code(s): R79.89 - Other specified abnormal findings of blood chemistry Plan . Orders: Orders TSH reflex Free T4 Today E11.9 - Type 2 diabetes mellitus without complications UA CC w/rflx Micro + Cult Today E11.9 - Type 2 diabetes mellitus without complications Lipid Panel Today E11.9 - Type 2 diabetes mellitus without complications Prostate Specific Antigen Scr Today Z12.5 - Encounter for screening for malignant neoplasm of prostate Complete Blood Count Auto Diff Today E11.9 - Type 2 diabetes mellitus without complications Comprehensive [place]. Panel Fast Today E11.9 - Type 2 diabetes mellitus without complications AMB Hemoglobin A1c Today Z13.9 - Encounter for screening, unspecified Microalbumin, Random (w Creat) Today E11.9 - Type 2 diabetes mellitus without complications Pneumococcal 20 Immunization Today Z23 - Encounter for immunization US thyroid Today E11.9 - Type 2 diabetes mellitus without complications, R79.89 - Other specified abnormal findings of blood chemistry Referrals Speech and Hearing Referral H91.90 - Unspecified hearing loss, unspecified ear Medications: New semaglutide (Ozempic) for 4 weeks 0.25 mg (0.368 mL) subcut QWEEK 3 mL 0RF Quality Reporting (2019) Depression/Bipolar (159/160/161/177) PHQ-9: Total score: 0 Coding Level of Care Code Medicare Subsequent (G0439) Est Pt Level 3 (49603) Diagnoses Diabetes E11.9 Screening for prostate cancer Z12.5 SALAMATOF (hard of hearing) H91.90 Encounter for annual wellness visit (AWV) in Medicare patient Z00.00 Elevated TSH R79.89 Additional Codes SUZAN-7 Assessment Billing - SUZAN-7 Assessment Tool: SUZAN-7 Assessment 21515 ([id number]) PHQ-9 - 20504 - PHQ-9 Billing: Yes ([id number]) Advance Care Planning Forms completed: Health Care Proxy (filled out), MOLST (filled out) and Living will (encouraged to have performed)
--- OUTSIDE RECORDS SUMMARY | 2025-04-05 09:54 | XMS_ITS | Clinical Summary ---
Author Organization [employer] Address [address] [facility] [address] [place] [address] Care Team Providers Care Welding Engineer Name Role Phone [facility] Primary Care Provider +1 [phone] Blanca Shearer Unavailable Unavailable Allergies No known active allergies Medications metFORMIN (Glucophage) 1000 MG tabletIndications: Uncontrolled type 2 diabetes mellitus with hyperglycemia (CMS/HCC) Take 1 tablet (1,000 mg) by mouth with breakfast and with evening meal. 180 tablet 3 5 02/24/20 Active empagliflozin (Jardiance) 10 MGIndications:Unco ntrolled type 2 diabetes mellitus with hyperglycemia (CMS/HCC) Take 1 tablet (10 mg) by mouth Once per day. 90 tablet 3 5 02/24/20 Active atorvastatin (Lipitor) 20 MG tabletIndications: Hyperlipidemia, unspecified hyperlipidemia type Take 1 tablet (20 mg) by mouth at bedtime. 90 tablet 3 5 02/24/20 Active Active Problems Problem Noted Date Diagnosed Date Type 2 diabetes mellitus wit hout complication, without long-term current use of insulin 12/22/2023 Encounters Date Type Department Care Team Description 02/23/2025 10:00 AM EDT Office Visit [place] [facility] [address] [place] [address] [facility] Uncontrolled type 2 diabetes mellitus with hyperglycemia (CMS/HCC) (Primary Dx); Hyperlipidemia, unspecified hyperlipidemia type; Primary osteoarthritis of both knees; Onychomycosis of toenail; Need for vaccination; Health care maintenance from Last 3 Months Immunizations Name Administration Dates Next Due Influenza Quadrivalent Adjuvanted 12/22/2023, Influenza injectable quadriv alent IIV4 with preservative 08/18/2020 Influenza, High Dose Seasona l, Preservative Free 11/18/2016 Influenza, IIV3, injectable 10/07/2012, 1,01/07/2011 Influenza, seasonal, injecta ble, preservative free 10/04/2013 Influenza, trivalent, adjuvanted 08/23/2024 Moderna Covid-19 Vaccine 12+ 12/22/2023 Pneumococcal Conjugate PCV 13 11/18/2016 Pneumococcal Polysaccharide PPSV23 05/18/2018, Tdap 02/23/2025,01/07/2011 Family History Medical History Relation Name Comments Diabetes Brother Cancer Mother Relation Name Status Comments Brother Father (Age 105) Mother Social History Tobacco Use Types Packs/Day Years Used Date Smoking Tobacco: Never Smokeless Tobacco: Never Alcohol Use Standard Drinks/Week Comments Not Currently 0 (1 standard drink = 0.6 oz pur e alcohol) Housing Stability Answer Date Recorded What is your housing situation today? I have mimi talbot 02/23/[address] you li ve. Do you have problems with any of the following? None of the above 02/23/2025 Food Insecurity Answer Date Recorded Within the past 12 months, y ou worried that your food would run out before you got money to buy more: Never True 02/23/2025 Within the past 12 months,th e food you bought just didn't last and you didn't have enough money to get more: Never True Transportation Answer Date Recorded In the past 12 months, has l ack of transportation kept you from medical appts, meetings, work or from getting things needed for daily living? No 02/23/2025 Utilities Answer Date Recorded In the past 12 months, has t he electric, gas, oil or water company threatened to shut off services in your home? No 02/23/2025 Depression Answer Date Recorded Patient Health Questionnaire-2 Score 0 02/23/2025 Internet Access Answer Date Recorded Internet Access Q1 Yes 02/23/2025 Internet Access Q2 Not on file 02/23/2025 Sex and Gender Information Value Date Recorded Sex Assigned at Male 10/28/2023 1:06 PM EST Legal Sex Male 1:05 PM EST Gender Identity Male 10/28/2023 1:06 PM EST Sexual Orientation Straight 10/28/2023 1: 06 PM EST Last Filed Vital Signs Vital Sign Reading Time Taken Comments Blood Pressure 134/82 02/23/2025 10:12 AM EDT Pulse 89 02/23/2025 10:12 AM EDT Temperature 36.6 ??C (97.8 ??F) 02/23/2025 10:12 AM E DT Respiratory Rate - - Oxygen Saturation 98% 08/23/2024 2:41 PM EDT Inhaled Oxygen Concentration - - Weight 68 kg (150 lb) 02/23/2025 10:12 AM EDT Height 165.1 cm (5' 5 ) 08/23/2024 2:41 PM EDT Body Mass Index 24.96 08/23/2024 2:41 PM EDT Plan of Treatment Upcoming Encounters Date Type Department Care Team (Late st Contact Info) Description 05/25/2025 10:00 AM EDT Office Visit [place] [facility] [address] [place] [address] [facility] [address] [place] [address] Health Maintenance Due Date Last Done Comments CT Colonography 1951 FIT DNA/Cologuard 1951 FIT 1951 FOBT 1950 Sigmoidoscopy 1951 Alcohol/Substance Use Screening 1963 Hepatitis C Screening 1969 Zoster Vaccines (1 of 2) 2001 COVID-19 Vaccine ( season) 2024 12/22/2023, 10/10/2022, 09/20/2021, Additional history exists Diabetes: Hemoglobin A1C 05/26/2025 025, 08/23/2024, 12/22/2023 Eye Exam 01/01/2026 01/01/2024 Depression Screening 02/23/2026 02/23/2025, 02/24/20 Diabetes: Foot Exam 02/23/2026 02/23/2025, 02/23/2025, 02/23/2025, Additional history exists SDOH Screening 02/23/2026 02/23/2025 Tobacco Screening 02/23/2026 02/23/2025 Diabetes: Urine Protein Screening 02/24/2026 02/24/2025 Lipid Panel 02/24/2026 02/24/2025 RSV Patients and Patients Aged 60 years or older (1 - 1-dose 75+ series) 2026 Colonoscopy 07/28/2028 07/28/2023 Colorectal Cancer Screening 07/28/2028 DTaP/Tdap/Td Vaccines (3 - Td or Tdap) 02/23/2035 02/23/2025, 01/07/2011 Pneumococcal Vaccine: 50+ Years Completed 05/18/2018, 11/18/2016, 10/07/2011 Influenza Vaccine Completed 08/23/2024, , 08/18/2020, Additional history exists HIB Vaccines Aged Out No longer eligi ble based on patient's age to complete this topic HPV Vaccines Aged Out No longer eligi ble based on patient's age to complete this topic Hepatitis A Vaccines Aged Out No long er eligible based on patient's age to complete this topic Hepatitis B Vaccines Aged Out No long er eligible based on patient's age to complete this topic IPV Vaccines Aged Out No longer eligi ble based on patient's age to complete this topic Meningococcal Vaccine Aged Out No dyan owen eligible based on patient's age to complete this topic RSV under 20 months Aged Out No longe r eligible based on patient's age to complete this topic Rotavirus Vaccines Aged Out No longer eligible based on patient's age to complete this topic Procedures Procedure Name Priority Date/Time Associated Diagnosis Comments LIPID PANEL, STANDARD Routine 02/24/2025 Hyperlipidemia, unspecified hyperlipidemia type ALBUMIN/CREATININE RATIO, TIMED URINE Routine 02/24/2025 Type 2 diabetes mellitus without complication, without long-term current use of insulin ([facility]) COMPREHENSIVE METABOLIC PANEL Routine 02/24/2025 Type 2 diabetes mellitus without complication, without long-term current use of insulin ([facility]) POCT GLYCOSYLATED HEMOGLOBIN (HGB A1C) Routine 02/23/2025 10:17 AM EDT Uncontrolled type 2 diabetes mellitus with hyperglycemia ([facility]) COLONOSCOPY Routine 07/28/2023 9:59 AM EDT from Last 3 Months or Most Recently Relevant to Health Maintenance Results * Microalbumin / creatinine, urine ratio (02/24/2025) Urine (Urine, Random) [facility] LAB URINE ORDERABLES Paty l Result Performing Organization Address City/[facility] Co de Phone Number EXTERNAL LAB * Lipid Panel, Standard (02/24/2025) Blood Venous blood specimen / Unknown [facility] LAB BLOOD ORDERABLES Paty l Result Performing Organization Address [facility] Co de Phone Number EXTERNAL LAB * Comprehensive Metabolic Panel (02/24/2025) Blood Venous blood specimen / Unknown [facility] LAB BLOOD ORDERABLES Paty l Result Performing Organization Address [facility] de Phone Number EXTERNAL LAB * (ABNORMAL) POCT glycosylated hemoglobin (Hgb A1c) (02/23/2025 10:17 AM EDT) Hemoglobin A1C 9.0(A) 4.0 - 6.0 % Blood Capillary blood specimen / Unknown 02/23/2025 10:17 AM EDT Result [facility] POINT OF CARE TEST ENTER/ EDIT ORDERABLES Final Result * Colonoscopy (07/28/2023 9:59 AM EDT) Result [facility] HEALTH MAINTENANCE Final Result from Last 3 Months or Most Recently Relevant to Health Maintenance Insurance AETNA MEDICARE REPLACEMENT [facility] PARTIAL Care Teams Welding Engineer Relationship Specialty Start Date End Date Alisa Clemons FNP [address] [place] [address] PCP - General Family Medicine 10/28/23 Blanca Shearer Health Navigator Financial Counseling [facility] Assistance Services 09/07/24
--- OUTSIDE RECORDS SUMMARY | 2025-04-05 09:54 | XMS_ITS | Encounter Summary ---
Author Organization [employer] Address [address] [facility] [address] [place] [address] Care Team Providers Care Regulatory Leader Name Role Phone [facility] Primary Care Provider [phone] [phone] Blanca Shearer Unavailable Unavailable Encounter Details Date Type Department Care Team (Late Contact Info) Description 08/24/2024 Orders Only [place] [address] [place] [address] [facility] [address] [place] [address] Social History Tobacco Use Types Packs/Day Years Used Date Smoking Tobacco: Never Smokeless Tobacco: Never Alcohol Use Standard Drinks/Week Comments Not Currently 0 (1 standard drink = 0.6 oz pur e alcohol) Sex and Gender Information Value Date Recorded Sex Assigned at Male 10/28/2023 1:06 PM EST Legal Sex Male 1:05 PM EST Gender Identity Male 10/28/2023 1:06 PM EST Sexual Orientation Straight 10/28/2023 1: 06 PM EST documented as of this encounter Plan of Treatment Upcoming Encounters Date Type Department Care Team (Late st Contact Info) Description 05/25/2025 10:00 AM EDT Office Visit [facility] [address] [place] [address] [facility] [address] [place] [address] documented as of this encounter Procedures Procedure Name Priority Date/Time Associated Diagnosis Comments PATHOLOGY REPORT (HISTOPATHOLOGY) Routine 06/29/2024 10:03 AM EDT PATHOLOGY REPORT (HISTOPATHOLOGY) Routine 03/09/2024 10:01 AM EDT HM COLONOSCOPY Routine 07/28/2023 9:59 AM EDT documented in this encounter Results * Pathology Report (Histopathology) (06/29/2024 10:03 AM EDT) Tissue [facility] LAB PATHOLOGY ORDERABLES Final Result * Pathology Report (Histopathology) (03/09/2024 10:01 AM EDT) Tissue [facility] LAB PATHOLOGY ORDERABLES Final Result * Colonoscopy (07/28/2023 9:59 AM EDT) [facility] HEALTH MAINTENANCE Final Result documented in this encounter Visit Diagnoses Not on filedocumented in this encounter Care Teams Regulatory Leader Relationship Specialty Start Date End Date [facility] [address] [place] [address] PCP - General Family Medicine 10/28/23 Blanca Shearer Health Navigator Financial Counseling and Assistance Services 09/07/24 documented as of this encounter
== END 2025-04-05 10:14 | disposition home or self-care (01) ==
LOC: HO.HMCC 09:07
PROVIDERS: PCP Nurse Practitioner Family; Visit Provider Nurse Practitioner Family
DX: Z00.00 Encounter for general adult medical examination without abnormal findings (principal); E11.9 Type 2 diabetes mellitus without complications; Z12.5 Encounter for screening for malignant neoplasm of prostate; H91.93 Unspecified hearing loss, bilateral; R79.89 Other specified abnormal findings of blood chemistry; Z23 Encounter for immunization

== ENCOUNTER → 2025-04-05 09:06 | Outpatient (BNVA) | payer MEDICARE, SELFPAY | PROVIDERS: PCP Nurse Practitioner Family; Visit Provider Nurse Practitioner Family | DX: Z00.00 Encounter for general adult medical examination without abnormal findings (principal); Z23 Encounter for immunization; E11.9 Type 2 diabetes mellitus without complications; H91.90 Unspecified hearing loss, unspecified ear; R94.6 Abnormal results of thyroid function studies | CPT/HCPCS: 83036; 90471; 90677; 96127; 99212 ==

== ENCOUNTER 2025-04-14 09:26 | Outpatient (REF) | payer MEDICARE, SELFPAY ==
--- OUTSIDE RECORDS SUMMARY | 2025-04-14 10:08 | XMS_ITS | Encounter Summary ---
Author Organization [employer] Address [address] [facility] [address] [place] [address] Care Team Providers Care Machine Wood Sander Name Role Phone [facility] Primary Care Provider +1 [phone] Blanca Shearer Unavailable Unavailable Encounter Details Date Type Department Care Team (Late Contact Info) Description 08/24/2024 Orders Only [place] [facility] [address] [place] [address] [facility] [address] [place] [address] Social History Tobacco Use Types Packs/Day Years [...] Description 05/25/2025 10:00 AM EDT Office Visit [facility] [address] [place] [address] [facility] [address] [place] [address] documented as of this encounter Procedures Procedure Name Priority Date/Time Associated Diagnosis Comments PATHOLOGY REPORT (HISTOPATHOLOGY) Routine 06/29/2024 10:03 AM EDT PATHOLOGY REPORT (HISTOPATHOLOGY) Routine 03/09/2024 10:01 AM EDT HM COLONOSCOPY Routine 07/28/2023 9:59 AM EDT documented in this encounter Results * Pathology Report (Histopathology) (06/29/2024 10:03 AM EDT) Tissue [facility] LAB PATHOLOGY ORDERABLES Final Result * Pathology Report (Histopathology) (03/09/2024 10:01 AM EDT) Tissue [facility] LAB PATHOLOGY ORDERABLES Final Result * Colonoscopy (07/28/2023 9:59 AM EDT) [facility] HEALTH MAINTENANCE Final Result documented in this encounter Visit Diagnoses Not on filedocumented in this encounter Care Teams Machine Wood Sander Relationship Specialty Start Date End Date [facility] [address] [place] [address] PCP - General Family Medicine 10/28/23 Blanca Shearer Health Navigator Financial Counseling and Assistance Services 09/07/24 documented as of this encounter
--- OUTSIDE RECORDS SUMMARY | 2025-04-14 10:08 | XMS_ITS | Clinical Summary ---
Author Organization [employer] Address [address] [facility] [address] [place] [address] Care Team Providers Care Conditioner Tumbler Name Role Phone [facility] Primary Care Provider +1 [phone] Blanca Shearer Unavailable Unavailable Allergies No known [...] 02/23/2025 10:00 AM EDT Office Visit [place] [facility] [address] [place] [address] [facility] Uncontrolled type 2 diabetes mellitus with hyperglycemia (CMS/HCC) (Primary Dx); Hyperlipidemia, unspecified hyperlipidemia type; Primary osteoarthritis of both knees; Onychomycosis of toenail; Need for vaccination; Health care maintenance from Last 3 Months Immunizations Immunization Administration Dates Next Due Influenza Quadrivalent Adjuvanted [...] Description 05/25/2025 10:00 AM EDT Office Visit [place] [facility] [address] [place] [address] [facility] [address] [place] [address] Health Maintenance Due Date Last Done Comments [...] complication, without long-term current use of insulin ([facility]) COMPREHENSIVE METABOLIC PANEL Routine 02/24/2025 Type 2 diabetes mellitus without complication, without long-term current use of insulin ([facility]) POCT GLYCOSYLATED HEMOGLOBIN (HGB A1C) Routine 02/23/2025 10:17 AM EDT Uncontrolled type 2 diabetes mellitus with hyperglycemia ([facility]) COLONOSCOPY Routine 07/28/2023 9:59 AM EDT from Last 3 Months or Most Recently Relevant to Health Maintenance Results * Microalbumin / creatinine, urine ratio (02/24/2025) Urine (Urine, Random) [facility] LAB URINE ORDERABLES Paty l Result Performing Organization Address City/[facility] Co de Phone Number EXTERNAL LAB * Lipid Panel, Standard (02/24/2025) Blood Venous blood specimen / Unknown [facility] LAB BLOOD ORDERABLES Paty l Result Performing Organization Address [facility] Co de Phone Number EXTERNAL LAB * Comprehensive Metabolic Panel (02/24/2025) Blood Venous blood specimen / Unknown [facility] LAB BLOOD ORDERABLES Paty l Result Performing Organization Address [facility] de Phone Number EXTERNAL LAB * (ABNORMAL) POCT glycosylated hemoglobin (Hgb A1c) (02/23/2025 10:17 AM EDT) Hemoglobin A1C 9.0(A) 4.0 - 6.0 % Blood Capillary blood specimen / Unknown 02/23/2025 10:17 AM EDT Result [facility] POINT OF CARE TEST ENTER/ EDIT ORDERABLES Final Result * Colonoscopy (07/28/2023 9:59 AM EDT) Result [facility] HEALTH MAINTENANCE Final Result from Last 3 Months or Most Recently Relevant to Health Maintenance Insurance AETNA MEDICARE REPLACEMENT [facility] PARTIAL Care Teams Conditioner Tumbler Relationship Specialty Start Date End Date Alisa Clemons FNP [address] [place] [address] PCP - General Family Medicine 10/28/23 Blanca Shearer Health Navigator Financial Counseling and Assistance Services 09/07/24
[2025-04-14 13:27] LABS: Appearance Urine Clear; Color Urine Yellow; Glucose Urine UA >=1000 mg/dL (Negative); Leukocyte Esterase Urine Negative (Negative); Nitrite Urine Negative (Negative); PH 6.5 (5.0-9.0); UMIC TRIGGER UACC YES; Urine Blood Negative (Negative); Urine Ketones Negative (Negative); Urine Protein Negative (Neg-Trace)
[2025-04-14 13:29] LABS: MANUAL DIFF FLAG NO
[2025-04-14 13:33] LABS: Bacteria Urine None Seen (None Seen); Hyaline Casts Urine 0-2 /LPF (0-2); RBC Urine 0-2 /HPF (0-2); Squamous Epithelial Cell Urine 0-2 /HPF (0-2); WBC Urine 0-5 /HPF (0-5)
[2025-04-14 13:36] LABS: Basophils Percent Auto 0.5 % (0-2); Eosinophils Absolute Auto 0.1 X10*3/uL (0.0-0.4); Eosinophils Percent Auto 1.7 % (0-4); Hematocrit 41.3 % (42.0-52.0); Hemoglobin 14.2 g/dl (14.0-18.0); Imm Gran Abs Auto 0.02 X10*3/uL (0.00-0.03); Imm Gran Pct Auto 0.3 % (0.0-0.4); Lymphocytes Absolute Auto 2.1 X10*3/uL (1.2-4.9); Lymphocytes Percent Auto 33.1 % (20-40); Mean Corpuscular HGB Conc 34.4 g/dl (31.0-36.0); Mean Corpuscular Hemoglobin 31.2 pg (27.0-33.0); Mean Corpuscular Volume 90.8 fL (80.0-98.0); Mean Platelet Volume 11.5 fL (9.4-12.4); Monocytes Absolute Auto 0.7 X10*3/uL (0.1-1.2); Monocytes Percent Auto 11.3 % (2-11); Neutrophils Absolute Auto 3.4 x10*3/uL (2.0-8.3); Neutrophils Percent Auto 53.1 % (45-73); Platelet Count 249 X10*3/uL (160-400); Red Blood Count 4.55 X10*6/uL (4.60-5.80); Red Cell Distribution Width 13.3 % (11.0-16.0); White Blood Count 6.4 X10*3/uL (4.8-10.8)
[2025-04-14 14:07] LABS: Prostate Specific Antigen Scr 1.42 ng/mL (<0.05-4.0)
[2025-04-14 14:15] LABS: Alanine Aminotransferase 40 U/L (0-40); Albumin Level 4.3 g/dL (3.5-5.0); Alkaline Phosphatase 88 U/L (39-117); Anion Gap 11 (12-20); Aspartate Amino Transferase 39 U/L (5-37); Bilirubin Total 0.9 mg/dL (0.0-1.0); Blood Urea Nitrogen 10 mg/dL (9-16); Calcium 9.4 mg/dL (8.4-10.2); Carbon Dioxide 26 mmol/L (22-29); Chloride 108 mmol/L (96-108); Cholesterol 106 mg/dL (<200); Estimated Glomerular Filt Rate > 60; Glucose Fasting 95 mg/dL (60-99); HDL Cholesterol 32 mg/dL (>40); LDL Cholesterol Calculated 60 mg/dL (<100); Potassium 4.2 mmol/L (3.3-5.1); Sodium 141 mmol/L (135-145); Total Protein 7.6 g/dL (6.5-8.0); Triglycerides 72 mg/dL (<150)
[2025-04-14 14:19] LABS: TSH reflex Free T4 5.36 uIU/mL (0.32-4.0)
[2025-04-14 14:22] LABS: Creatinine Urine 60.14 mg/dL; Microalbumin Urine < 5.0 mg/L
[2025-04-14 15:58] LABS: Free T4 (Free Thyroxine) 0.98 ng/dL (0.71-1.85)
== END 2025-04-14 09:27 | disposition home or self-care (01) ==
LOC: HO.HMGCLDS 09:26
PROVIDERS: PCP Nurse Practitioner Family; Visit Provider Nurse Practitioner Family
DX: E11.9 Type 2 diabetes mellitus without complications (principal); Z12.5 Encounter for screening for malignant neoplasm of prostate
CPT/HCPCS: 36415; 80053; 80061; 81001; 82043; 82570; 84153; 84439; 84443; 85025

== ENCOUNTER 2025-04-26 08:14 | Outpatient (REF) | payer MEDICARE, SELFPAY ==
--- OUTSIDE RECORDS SUMMARY | 2025-04-26 08:20 | XMS_ITS | Clinical Summary ---
Author Organization [employer] Address [address] [facility] [address] [place] [address] Care Team Providers Care Liquor Blender Name Role Phone [facility] Primary Care Provider [phone] [phone] Blanca Shearer Unavailable Unavailable Allergies No known [...] 02/23/2025 10:00 AM EDT Office Visit [place] [facility] [address] [place] [address] [facility] Uncontrolled type 2 diabetes mellitus with [...] Description 05/25/2025 10:00 AM EDT Office Visit [place] [facility] [address] [place] [address] [facility] [address] [place] [address] Health Maintenance Due Date Last Done Comments [...] patient's age to complete this topic Meningococcal B Vaccine Aged Out No l onger eligible based on patient's age to complete [...] complication, without long-term current use of insulin ([facility]) COMPREHENSIVE METABOLIC PANEL Routine 02/24/2025 Type 2 diabetes mellitus without complication, without long-term current use of insulin ([facility]) POCT GLYCOSYLATED HEMOGLOBIN (HGB A1C) Routine 02/23/2025 10:17 AM EDT Uncontrolled type 2 diabetes mellitus with hyperglycemia ([facility]) COLONOSCOPY Routine 07/28/2023 9:59 AM EDT from Last 3 Months or Most Recently Relevant to Health Maintenance Results * Microalbumin / creatinine, urine ratio (02/24/2025) Urine (Urine, Random) [facility] LAB URINE ORDERABLES Paty l Result Performing Organization Address City/[facility]/ZIP Co de Phone Number EXTERNAL LAB * Lipid Panel, Standard (02/24/2025) Blood Venous blood specimen / Unknown [facility] LAB BLOOD ORDERABLES Paty l Result Performing Organization Address City/[facility]/ZIP Co de Phone Number EXTERNAL LAB * Comprehensive Metabolic Panel (02/24/2025) Blood Venous blood specimen / Unknown Result [facility] LAB BLOOD ORDERABLES Paty l Result Performing Organization Address City/[facility]/ZIP Co de Phone Number EXTERNAL LAB * (ABNORMAL) POCT glycosylated hemoglobin (Hgb A1c) (02/23/2025 10:17 AM EDT) Hemoglobin A1C 9.0(A) 4.0 - 6.0 % Blood Capillary blood specimen / Unknown 02/23/2025 10:17 AM EDT Result [facility] POINT OF CARE TEST ENTER/ EDIT ORDERABLES Final Result * Colonoscopy (07/28/2023 9:59 AM EDT) [facility] HEALTH MAINTENANCE Final Result from Last 3 Months or Most Recently Relevant to Health Maintenance Insurance A[employer] MEDICARE REPLACEMENT [employer] PARTIAL Care Teams Liquor Blender Relationship Specialty Start Date End Date [facility] Alisa, [facility] [address] [place] [address] PCP - General Family Medicine 10/28/23 Blanca Shearer Health Navigator Financial Counseling and Assistance Services 09/07/24
[2025-04-26 10:55] LABS: TSH reflex Free T4 5.81 uIU/mL (0.32-4.0)
[2025-04-26 10:58] LABS: HBS Num1 0.22 mIU/mL (0-7.99); HBc Num1 0.24 S/CO (0.00-0.79); HBsAGNum1 0.42 S/CO (0.00-0.99); Hepatitis A Antibody IgM 0.12 Index (0-0.79); Hepatitis B Core Antibody Nonreactive (Nonreactive); Hepatitis B Surface Antigen Negative (Negative); ~HepC Num1 0.31 S/CO (0.00-0.79); ~Hepatitis A Antibody IgM Nonreactive (Nonreactive); ~Hepatitis B Surface Antibody NONREACTIVE (Nonreactive); ~Hepatitis C Antibody Nonreactive (Nonreactive)
[2025-04-26 12:21] LABS: Free T4 (Free Thyroxine) 0.92 ng/dL (0.71-1.85)
[2025-04-27 12:03] LABS: Thyroid Peroxidase Antibodies <1 IU/mL (<9)
== END 2025-04-26 08:15 | disposition home or self-care (01) ==
LOC: HO.HMGCLDS 08:14
PROVIDERS: PCP Nurse Practitioner Family; Visit Provider Nurse Practitioner Family
DX: R74.8 Abnormal levels of other serum enzymes (principal); R79.89 Other specified abnormal findings of blood chemistry
CPT/HCPCS: 36415; 84439; 84443; 86376; 86704; 86706; 86709; 86803; 87340

== ENCOUNTER 2025-04-27 14:19 | Outpatient (REF) | payer MEDICARE, SELFPAY ==
--- NOTE | ~2025-04-27 | US_ITS ---
EXAMINATION: US THYROID HISTORY: E11.9 - Thyroid nodule TECHNIQUE: Real-time grayscale ultrasound imaging was performed and images were reviewed. COMPARISON: There are no prior studies for comparison. FINDINGS: SIZE: The right thyroid lobe measures 4.4 x 2.3 x 1.2 cm. The left thyroid lobe measures 3.8 x 1.5 x 1.1 cm. The isthmus measures 6 mm. FLOW: Flow to the gland is normal. ECHOGENICITY: The echotexture of the gland is homogeneous. NODULES: There is a 5 x 4 x 5 mm cyst in the midportion of the right thyroid lobe. On the left, there is a solitary nodule with imaging characteristics as follows: Nodule #: 1 Location: Midportion of the left thyroid lobe measuring 5 x 4 x 4 mm. Shape: Round (0 points) Margins: Smooth (0 points) Echotexture: Hyperechoic (1 point) Composition: Solid (2 points) Calcifications: None (0 points) Total points: 3 TIRADS: TR3: Mildly suspicious. US/US thyroid IMPRESSION: Subcentimeter left thyroid nodule as described. Per ACR TI-RADS guidelines below, no follow-up is required. ACR TI-RADS Guidelines TR1 (0 points): Benign, No follow-up or biopsy required TR2 (2 points): Not Suspicious, No biopsy or follow up indicated TR3 (3 points): Mildly Suspicious, FNA if >= 2.5 cm, Follow if >= 1.5 cm TR4 (4-6 points): Moderately Suspicious, FNA if >= 1.5 cm, Follow if >= 1.0 cm TR5 (>=7 points): Highly Suspicious, FNA if >= 1.0 cm, Follow if >= 0.5 cm Electronically signed by: Naif Bergman MD 04/27/2025 02:47 PM EDT
--- OUTSIDE RECORDS SUMMARY | 2025-04-27 15:14 | XMS_ITS | Clinical Summary ---
Author Organization [employer] Address [address] [facility] [address] [place] [address] Care Team Providers Care Reed Fixer Name Role Phone [facility] Primary Care Provider [phone] [phone] Blanca Shearer Unavailable Unavailable Allergies No known [...] 02/23/2025 10:00 AM EDT Office Visit [place] [facility] [address] [address] [facility] Uncontrolled type 2 diabetes mellitus with [...] Description 05/25/2025 10:00 AM EDT Office Visit [place] [facility] [address] [place] [address] [facility] [address] [place] [address] Health Maintenance Due Date Last Done Comments [...] complication, without long-term current use of insulin ([facility]) COMPREHENSIVE METABOLIC PANEL Routine 02/24/2025 Type 2 diabetes mellitus without complication, without long-term current use of insulin ([facility]) POCT GLYCOSYLATED HEMOGLOBIN (HGB A1C) Routine 02/23/2025 10:17 AM EDT Uncontrolled type 2 diabetes mellitus with hyperglycemia ([facility]) COLONOSCOPY Routine 07/28/2023 9:59 AM EDT from Last 3 Months or Most Recently Relevant to Health Maintenance Results * Microalbumin / creatinine, urine ratio (02/24/2025) Urine (Urine, Random) [facility] LAB URINE ORDERABLES Paty l Result Performing Organization Address City/[facility]/ZIP Co de Phone Number EXTERNAL LAB * Lipid Panel, Standard (02/24/2025) Blood Venous blood specimen / Unknown [facility] LAB BLOOD ORDERABLES Paty l Result Performing Organization Address City/[facility]/ZIP Co de Phone Number EXTERNAL LAB * Comprehensive Metabolic Panel (02/24/2025) Blood Venous blood specimen / Unknown Result [facility] LAB BLOOD ORDERABLES Paty l Result Performing Organization Address City/[facility]/ZIP Co de Phone Number EXTERNAL LAB * (ABNORMAL) POCT glycosylated hemoglobin (Hgb A1c) (02/23/2025 10:17 AM EDT) Hemoglobin A1C 9.0(A) 4.0 - 6.0 % Blood Capillary blood specimen / Unknown 02/23/2025 10:17 AM EDT Result [facility] POINT OF CARE TEST ENTER/ EDIT ORDERABLES Final Result * Colonoscopy (07/28/2023 9:59 AM EDT) [facility] HEALTH MAINTENANCE Final Result from Last 3 Months or Most Recently Relevant to Health Maintenance Insurance A[employer]NA MEDICARE REPLACEMENT [employer] PARTIAL Care Teams Reed Fixer Relationship Specialty Start Date End Date [facility] Alisa, [facility] [address] [place] [address] PCP - General Family Medicine 10/28/23 Blanca Shearer Health Navigator Financial Counseling and Assistance Services 09/07/24
== END 2025-04-27 14:20 | disposition home or self-care (01) ==
LOC: HO.HMGCX 14:19
PROVIDERS: PCP Nurse Practitioner Family; Visit Provider Nurse Practitioner Family
DX: R79.89 Other specified abnormal findings of blood chemistry (principal); E11.9 Type 2 diabetes mellitus without complications
CPT/HCPCS: 76536

== ENCOUNTER → 2025-04-27 14:21 | Outpatient (BNV) | payer MEDICARE, SELFPAY | PROVIDERS: PCP Nurse Practitioner Family; Visit Provider Radiology Diagnostic Radiology | DX: E04.1 Nontoxic single thyroid nodule (principal) | CPT/HCPCS: 76536 ==

== ENCOUNTER 2025-05-25 08:58 | Outpatient (REF) | payer MEDICARE, SELFPAY ==
--- NOTE | ~2025-05-25 | US_ITS ---
EXAMINATION: US ABDOMEN HISTORY: R74.8 - Abnormal levels of other serum enzymes TECHNIQUE: Real-time grayscale ultrasound imaging of the abdomen was performed and images were reviewed. COMPARISON: Correlation is made with an unenhanced CT of the abdomen and pelvis dated 02/14/2024. FINDINGS: Liver: The liver is normal in size. The liver demonstrates normal homogeneous echotexture. No focal mass or intrahepatic biliary ductal dilatation is identified. There is normal hepatopedal flow in the portal vein. Gallbladder and biliary tree: The gallbladder is surgically absent. The common bile duct is normal in caliber measuring 5 mm. Kidneys: The right kidney measures 11.2 cm in length. The left kidney measures 11.0 cm in length. The kidneys are unremarkable, without evidence of masses, hydronephrosis, or calculi. Pancreas: The pancreatic head, neck, and body are unremarkable. The pancreatic tail is obscured by bowel gas. Spleen: The spleen is normal in size and contour, measuring 8.5 cm in length. Abdominal aorta and inferior vena cava: The visualized portions of the abdominal aorta and inferior vena cava are normal in caliber. There is no free fluid in the abdomen. US/US abdomen complete IMPRESSION: Status post cholecystectomy. Unremarkable abdominal ultrasound. Electronically signed by: Naif Bergman MD 05/25/2025 10:10 AM EDT
--- OUTSIDE RECORDS SUMMARY | 2025-05-25 09:38 | XMS_ITS | Clinical Summary ---
Author Organization [employer] Address [address] [facility] 7t [place] [address] Care Team Providers Care Motion Picture Equipment Supervisor Name Role Phone [facility] Primary Care Provider [phone] Blanca Shearer Unavailable Unavailable Allergies No known [...] 02/23/2025 10:00 AM EDT Office Visit [facility] [address] [place] [address] [facility] Uncontrolled type 2 diabetes mellitus with hyperglycemia [...] is your housing situation today? I have mmii talbot 02/23/[address] you [...] 89 02/23/2025 10:12 AM EDT Temperature 36.6 C (97.8 F) 02/23/2025 10:12 AM EDT Respiratory Rate - - Oxygen Saturation 98% 08/23/2024 2:41 PM EDT Inhaled Oxygen Concentration - - Weight 68 kg (150 lb) 02/23/2025 10:12 AM EDT Height 165.1 cm (5' 5 ) 08/23/2024 2:41 PM EDT Body Mass Index 24.96 08/23/2024 2:41 PM EDT Plan of Treatment Upcoming Encounters Date Type Department Care Team (Late st Contact Info) Description 05/28/2025 10:00 AM EDT Office Visit [facility] [address] [place] [address] Daily Whitlock MD [address] [place] [address] Health Maintenance Due Date Last Done Comments [...] complication, without long-term current use of insulin ([facility]) COMPREHENSIVE METABOLIC PANEL Routine 02/24/2025 Type 2 diabetes mellitus without complication, without long-term current use of insulin ([facility]) POCT GLYCOSYLATED HEMOGLOBIN (HGB A1C) Routine 02/23/2025 10:17 AM EDT Uncontrolled type 2 diabetes mellitus with hyperglycemia ([facility]) COLONOSCOPY Routine 07/28/2023 9:59 AM EDT from Last 3 Months or Most Recently Relevant to Health Maintenance Results * Microalbumin / creatinine, urine ratio (02/24/2025) Urine (Urine, Random) [facility] LAB URINE ORDERABLES Paty l Result Performing Organization Address City/[facility]/ZIP Co de Phone Number EXTERNAL LAB * Lipid Panel, Standard (02/24/2025) Blood Venous blood specimen / Unknown [facility] LAB BLOOD ORDERABLES Paty l Result Performing Organization Address [facility] Co de Phone Number EXTERNAL LAB * Comprehensive Metabolic Panel (02/24/2025) Blood Venous blood specimen / Unknown [facility] LAB BLOOD ORDERABLES Paty l Result Performing Organization Address [facility] de Phone Number EXTERNAL LAB * (ABNORMAL) POCT glycosylated hemoglobin (Hgb A1c) (02/23/2025 10:17 AM EDT) Hemoglobin A1C 9.0(A) 4.0 - 6.0 % Blood Capillary blood specimen / Unknown 02/23/2025 10:17 AM EDT Result [facility] POINT OF CARE TEST ENTER/ EDIT ORDERABLES Final Result * Colonoscopy (07/28/2023 9:59 AM EDT) [facility] HEALTH MAINTENANCE Final Result from Last 3 Months or Most Recently Relevant to Health Maintenance Insurance [employer] MEDICARE REPLACEMENT [employer] Care Teams Motion Picture Equipment Supervisor Relationship Specialty Start Date End Date [place], [place], [facility] [address] [place] [address] PCP - General Family Medicine 10/28/23 Blanca Shearer Health Navigator Financial Counseling and Assistance Services 09/07/24
== END 2025-05-25 08:59 | disposition home or self-care (01) ==
LOC: HO.HMGCX 08:58
PROVIDERS: PCP Nurse Practitioner Family; Visit Provider Nurse Practitioner Family
DX: R74.8 Abnormal levels of other serum enzymes (principal)
CPT/HCPCS: 76700

== ENCOUNTER → 2025-05-25 09:00 | Outpatient (BNV) | payer MEDICARE, SELFPAY | PROVIDERS: PCP Nurse Practitioner Family; Visit Provider Radiology Diagnostic Radiology | DX: R74.01 Elevation of levels of liver transaminase levels (principal) | CPT/HCPCS: 76700 ==

== ENCOUNTER 2025-07-06 11:21 | Outpatient (AMB) | payer MEDICARE, SELFPAY ==
--- NOTE | 2025-07-06 11:44 | MHC.OFFVIS ---
Intake Visit Reasons: BPH/enlarged prostate Intake Note: Patient presents today for BPH/enlarged prostate Urology Meds- None Allergies to Antibiotic- No Known Allergies Blood Thinner- None PVR:0ml Timekeeper Required: No Allergies No Known Allergies Allergy (Verified 07/06/25 11:45) HPI Comments Details: Kenny is a pleasant Chinese-speaking male. He is a patient Dr. Evans. He is seen for the following urologic conditions - lower urinary tract symptoms - presenting with urinary frequency and nocturia. He urinates approximately eight times daily without hesitancy. Bladder ultrasound shows complete emptying. History of diabetes mellitus managed with Farxiga, contributing to increased urination. Advised to reduce fluid intake before bedtime to reduce nocturia. UA 3+ glucose, Farxiga 25 mg. PVR 0 cc PSA 04/24 1.4 May benefit from reducing Farxiga dose Change to terazosin, stop tamsulosin, plan follow-up cystoscopy Urinary Symptoms Review - Urinary frequency: Approximately eight times daily - Nocturia: Increased urination at night - No hesitancy or difficulty initiating urination - Complete bladder emptying confirmed by ultrasound Results - Bladder ultrasound: Complete emptying observed [facility] Medical History Gallstones Elevated cholesterol Diabetes Surgical History History of laparoscopic cholecystectomy (~06/29/24) History of hydrocelectomy Hx of colonoscopy Family History Father No family history of cancer Mother No family history of cancer Social History Housing: Apartment Alcohol intake: never Patient Tobacco Use Status: Former Tobacco user Tobacco use type: Cigarette e-Cigarette/Vaping Use: Never Used Second Hand Smoke Exposure: No service: No Current occupational status: retired Cognitive needs: No Hearing needs: No Vision needs: No Assessment & Plan Assessment & Plan (1) Weak urinary stream: Code(s): R39.12 - Poor urinary stream Category: Medical (2) BPH loc w urin obs/LUTS: Code(s): N40.1 - Benign prostatic hyperplasia with lower urinary tract symptoms Category: Medical (3) Nocturia more than twice per night: Code(s): R35.1 - Nocturia Category: Medical Plan Patient informed verbally consented to the use of an ambient scribe 1. Benign Prostatic Hyperplasia - Switch to terazosin - Consider cystoscopy and potential prostate procedure 2. Diabetes Mellitus - Reduce Farxiga dose - Reduce fluid intake before bed Discussion Notes I discussed with the patient the plan to switch his medication from tamsulosin to terazosin to better manage his urinary symptoms. We also talked about the possibility of performing a cystoscopy to assess his bladder and prostate, and the potential need for a prostate procedure. Regarding his diabetes management, I recommended reducing the dose of Farxiga and advised him to limit fluid intake before bedtime to help with nocturia. Patient Instructions - Switch to terazosin as prescribed - Limit fluid intake three hours before bedtime - Follow up in a couple of months for potential cystoscopy Medications: New terazosin 5 mg PO BEDTIME 30 caps 1RF 30 days N40.1 - Benign prostatic hyperplasia with lower urinary tract symptoms Discontinued tamsulosin (Flomax) Taking the evening with dinner daily Discontinued Reason: Doctor's Order 0.4 mg PO DAILY 90 caps 3RF Patient Instructions: This note is constructed using voice recognition software. While every effort has been made to ensure accuracy supervisor forming department errors may have been included. Imaging studies, laboratory and physical exam results were discussed and reviewed in detail. No major barriers to patient understanding were identified. An opportunity to ask questions regarding the treatment plan was provided. All questions were answered. The patient expressed understanding and agreement with the above treatment plan. The patient is aware they should contact our office by phone for worsening of their current condition or the appearance of new urologic symptoms. Compliance is encouraged with any medications and followup testing that is ordered. It is a privilege to participate in the urologic care of your patient. If you have any questions or concerns regarding treatment for the above conditions, or other urologic issues, please do not hesitate to contact me. The office telephone contact is [phone]. Sincerely, Dr Chi Reddy MD, PEDRO [facility] - Urology Compassionate Specialist Care for the Genitourinary System Coding Level of Care Code New Pt Level 4 (29066) Diagnoses Weak urinary stream R39.12 BPH loc w urin obs/LUTS N40.1 Nocturia more than twice per night R35.1
--- OUTSIDE RECORDS SUMMARY | 2025-07-06 12:08 | XMS_ITS | Encounter Summary ---
Author Organization [facility] Address [address] [place] [id number] Phone Care Team Providers Care Financial Institution Treasurer Name Role Phone Naif Hernandez MD Primary Care Provider [phone] [facility] Alisa Sangeeta [facility] Primary Care Provide r Encounter Details Date Type Department Care Team (Late st Contact Info) Description 04/12/2019 Ancillary Orders [facility], X-Ray - [address] [address] Gaurang Zendejas, DO [address] [place] [address] [email or web address] Left shoulder pain, unspecified chronicity Social History Tobacco Use Types Packs/Day Years Used Date Smoking Tobacco: Never Assessed Sex and Gender Information Value Date Recorded Sex Assigned at Male 02/14/2020 9:19 AM EDT Legal Sex Male 10:01 PM EDT Gender Identity Male 02/14/2020 9:19 AM EDT Sexual Orientation Not on file documented as of this encounter Plan of Treatment Not on file documented as of this encounter Results * XR SHOULDER 2 VIEWS (LEFT) (04/12/2019 2:04 PM EDT) Anatomical Region Laterality Modality Shoulder Left Radiographic Gisella ging 04/12/2019 2:11 PM EDT Impressions 04/12/2019 2:13 PM EDT Radiopaque densities/question foreign body in the soft tissues between the acromion and head of the left humerus. Mild degenerative changes in the a.c. and glenohumeral articulations also noted. No acute bony injury or bony displacement is seen. S/S: Left shoulder pain POS - [id number] Narrative 04/12/2019 2:13 PM EDT COMPARISON: None FINDINGS: 4 views of the left shoulder are obtained. There are mild degenerative changes in the AC joint. A radiopaque density projects adjacent to and in between the acromion and the left humeral head. This is of undetermined source and significance. There are mild degenerative changes in the glenohumeral articulation. No acute bony injury or subluxation is seen. The upper left lung field is clear. Procedure Note Dane Salguero MD - 04/12/2019 COMPARISON: None FINDINGS: 4 views of the left shoulder are obtained. There are mild degenerative changes in the AC joint. A radiopaque density projects adjacent to and in between the acromion andthe left humeral head. This is of undetermined source and significance. There are mild degenerative changes in the glenohumeral articulation. No acute bony injury or subluxation is seen. The upper left lung field is clear. IMPRESSION: Radiopaque densities/question foreign body in the soft tissues between theacromion and head of the left humerus. Mild degenerative changes in jarvis.c. and glenohumeral articulations also noted. No acute bony injury or bony displacement is seen. S/S: Left shoulder pain POS - [id number] Gaurang Zendejas DO IMG XR UPPER EXTREMITY Final Result documented in this encounter Visit Diagnoses Diagnosis Left shoulder pain, unspecified chronicity Left shoulder pain, unspecified chronicity documented in this encounter Additional Health Concerns Infection Onset Date Last Indicated Resolved Time CoV-Risk 11/16/2021 11/16/2021 11/26/2021 1:23 AM EST documented as of this encounter Care Teams Financial Institution Treasurer Relationship Specialty Start Date End Date Naif Hernandez MD [address] [place] [address] [email or web address] PCP - General Internal Medicine 04/12/19 03/21/25 Alisa Clemons FNP [address] [place] [address] PCP - General Nurse Practitioner 03/22/25 documented as of this encounter Additional Source Comments The information contained in this document represents components of the legal health record. It is not the complete legal health record.[facility]
--- OUTSIDE RECORDS SUMMARY | 2025-07-06 12:08 | XMS_ITS | Clinical Summary ---
Author Organization [employer] Address [address] [facility] 7t [place] [address] Care Team Providers Care Composition Weatherboard Applier Name Role Phone Alisa Clemons [facility] Primary Care Provider [phone] Blanca Shearer Unavailable Unavailable Allergies No known [...] Encounters Date Type Department Care Team Description 06/01/2025 10:00 AM EDT Office Visit [facility] [address] [place] [address] Daily Whitlock MD Primary osteoarthritis of right knee (Primary Dx) 05/28/2025 10:00 AM EDT [facility] [address] [place] [address] Daily Whitlock MD Type 2 diabetes mellitus without complication, without long-term current use of insulin ([facility]) (Primary Dx) from Last 3 Months Immunizations Immunization Administration [...] Sign Reading Time Taken Comments Blood Pressure 118/74 06/01/2025 10:15 AM EDT Pulse 69 06/01/2025 10:15 AM EDT Temperature 36.7 C (98.1 F) 06/01/2025 10:15 AM EDT Respiratory Rate 18 06/01/2025 10:15 AM EDT Oxygen Saturation 98% 08/23/2024 2:41 PM EDT Inhaled Oxygen Concentration - - Weight 61.2 kg (135 lb) 06/01/2025 10:15 AM EDT Height 165.1 cm (5' 5 ) 08/23/2024 2:41 PM EDT Body Mass Index 22.47 08/23/2024 2:41 PM EDT Plan of Treatment Health Maintenance Due Date Last Done Comments CT Colonography 1951 FIT DNA/Cologuard 1950 FIT 1950 FOBT 1950 Sigmoidoscopy 1950 Alcohol/Substance Use Screening 1963 Hepatitis C Screening 1969 Zoster Vaccines (1 of 2) 2001 COVID-19 Vaccine ( season) 2024 12/22/2023, 10/10/2022, 09/20/2021, Additional history exists Influenza Vaccine (#1) 2025 , 12/22/2023, 08/18/2020, Additional history exists Diabetes: Hemoglobin A1C 11/27/2025 025, 02/23/2025, 08/23/2024, Additional history exists Eye Exam 01/01/2026 01/01/2024 Depression Screening 02/23/2026 02/23/2025, 02/24/20 25 Diabetes: Foot Exam 02/23/2026 02/23/2025, 02/23/2025, 02/23/2025, [...] 02/23/2025, 01/07/2011 Pneumococcal Vaccine: 50+ Years Completed 04/05/2025, 05/18/2018, 11/18/2016, Additional history exists HIB Vaccines Aged Out [...] Procedure Name Priority Date/Time Associated Diagnosis Comments IN ARTHROCENTESIS ASPIR&/INJ MAJOR JT/BURSA W/O US Routine 06/14/2025 2:18 PM EDT Primary osteoarthritis of right knee POCT GLYCOSYLATED HEMOGLOBIN (HGB A1C) Routine 05/28/2025 10:21 AM EDT Type 2 diabetes mellitus without complication, without long-term current use of insulin ([facility]) ALBUMIN/CREATININE RATIO, TIMED URINE Routine 02/24/2025 Type 2 diabetes mellitus without complication, without long-term current use of insulin ([facility]) LIPID PANEL, STANDARD Routine 02/24/2025 Hyperlipidemia, unspecified hyperlipidemia type HM COLONOSCOPY Routine 07/28/2023 9:59 AM EDT from Last 3 Months or Most Recently Relevant to Health Maintenance Results * IN ARTHROCENTESIS ASPIR&/INJ MAJOR JT/BURSA W/O US (06/14/2025 2:18 PM EDT) Daily Caro MD - 06/14/2025 2:18 PM EDT Daily Whitlock MD 06/14/2025 2:23 PM Arthrocentesis Date/Time: 06/14/2025 2:18 PM Performed by: Daily Whitlock MD Authorized by: Daily Whitlock MD Consent: Consent obtained: Verbal Consent given by: Patient Risks, benefits, and alternatives were discussed: yes Risks discussed: Bleeding, infection and pain Alternatives discussed: Referral, alternative treatment, delayed treatment and observation [place] protocol: Procedure explained and questions answered to patient or proxy's satisfaction: yes Patient identity confirmed: Verbally with patient Location: Location: Knee Knee: R knee Anesthesia: Anesthesia method: Topical application Procedure details: Needle gauge: 22 G Ultrasound guidance: no Approach: Superior Steroid injected: yes Post-procedure details: Dressing: Adhesive bandage Procedure completion: Tolerated Result [facility] Daily Whitlock MD IN CLINIC/BEDSIDE ORDERABLES F inal Result * (ABNORMAL) POCT glycosylated hemoglobin (Hgb A1c) (05/28/2025 10:21 AM EDT) Hemoglobin A1C 6.1(A) 4.0 - 5.7 % Blood Capillary blood specimen / Unknown 05/28/2025 10:21 AM EDT Daily Whitlock MD POINT OF CARE TEST ENTER/EDIT ORDERABLES Final Result * Microalbumin / creatinine, urine ratio (02/24/2025) Urine (Urine, Random) [facility] LAB URINE ORDERABLES Paty l Result EXTERNAL LAB * Lipid Panel, Standard (02/24/2025) Blood Venous blood specimen / Unknown [facility] LAB BLOOD ORDERABLES Paty l Result Performing Organization Address [facility]/ZIP Co de Phone Number EXTERNAL LAB * Hm Colonoscopy (07/28/2023 9:59 AM EDT) [facility] HEALTH MAINTENANCE Final Result from Last 3 Months or Most Recently Relevant to Health Maintenance Insurance [employer] MEDICARE REPLACEMENT [facility] Care Teams Composition Weatherboard Applier Relationship Specialty Start Date End Date [facility] [address] [place] [address] PCP - General Family Medicine 10/28/23 Blanca Shearer Health Navigator Financial Counseling and Assistance Services 09/07/24
== END 2025-07-06 12:03 | disposition home or self-care (01) ==
LOC: HO.HUSH 11:22
PROVIDERS: PCP Nurse Practitioner Family; Visit Provider Urology
DX: N40.1 Benign prostatic hyperplasia with lower urinary tract symptoms (principal); R39.12 Poor urinary stream; R35.1 Nocturia
CPT/HCPCS: 99204

== ENCOUNTER → 2025-07-06 11:21 | Outpatient (BNVA) | payer MEDICARE, SELFPAY | PROVIDERS: PCP Nurse Practitioner Family; Visit Provider Urology | DX: N40.1 Benign prostatic hyperplasia with lower urinary tract symptoms (principal); N13.8 Other obstructive and reflux uropathy; R35.1 Nocturia; R39.12 Poor urinary stream | CPT/HCPCS: 81003; 99202 ==

== ENCOUNTER 2025-09-08 09:41 | Outpatient (AMB) | payer MEDICARE, SELFPAY ==
--- NOTE | 2025-09-08 09:57 | MHC.OFFVIS ---
Intake Visit Reasons: cysto Intake Note: Patient presents today for Cystoscopy Urology Meds- Terazosin Allergies to Antibiotic- No Known Allergies Blood Thinner- None LOT# [id number] EXP: 05/09/2028 Director Of Intelligence Required: Yes Director Of Intelligence Services: Director Of Intelligence Offered & Declined Accompanied by: Grand Child Allergies No Known Allergies Allergy (Verified 09/08/25 09:57) HPI Comments Details: Kenny is a pleasant Maltese-speaking male. He is a patient Dr. Evans. He is seen for the following urologic conditions - lower urinary tract symptoms - presenting with urinary frequency and nocturia. He urinates approximately eight times daily without hesitancy. Bladder ultrasound shows complete emptying. Prior discussion regarding reduction in Farxiga dose Has been on terazosin and here today for cystoscopy Open bladder neck Trial amitriptyline at night History of diabetes mellitus managed with Farxiga, contributing to increased urination. Advised to reduce fluid intake before bedtime to reduce nocturia. UA 3+ glucose, Farxiga 25 mg. PVR 0 cc PSA 04/24 1.4 Urinary Symptoms Review - Urinary frequency: Approximately eight times daily Results - Bladder ultrasound: Complete emptying observed [facility] Medical History Gallstones Elevated cholesterol Diabetes Surgical History History of laparoscopic cholecystectomy (~06/29/24) History of hydrocelectomy Hx of colonoscopy Family History Father No family history of cancer Mother No family history of cancer Social History Housing: Apartment Alcohol intake: never Patient Tobacco Use Status: Former Tobacco user Tobacco use type: Cigarette e-Cigarette/Vaping Use: Never Used Second Hand Smoke Exposure: No service: No Current occupational status: retired Cognitive needs: No Hearing needs: No Vision needs: No Office Procedures Cystoscopy Consent Discussed risk and benefit or proposed procedure with the patient. Information consent for procedure given to the patient. Discussed technical aspects, risks, benefits and alternatives in full. Addressed all of the patient's questions and concerns regarding the procedure. The patient demonstrated knowledge and understanding. They wish to proceed with this procedure. Preparation The patient was prepped in the usual manner. A theatre instructor was present and in the room. Genitalia was prepped with betadine solution in a sterile manner. Lidocaine Jelly 2% was placed into the urethra and 16Fr flexible Olympus cystoscope was inserted into the meatus after adequate lubrication. Procedure Cystoscopy performed using a disposable Urovue digital 16 Cymraes cystoscope. Meatus circumcised Urethra anterior and posterior urethra normal Prostatic Urethra unremarkable open bladder neck short intra prostatic urethra Bladder examination with retroflexion of cystoscope Bladder Orifices normal shape and position Bladder Capacity Normal Trabeculations Grade 0 Cellule Formation None Diverticulum Formation None Mucosal Erythema None Bladder Tumor None [id number] DISPOSABLE SCOPE URO-G FLEXIBLE SCOPE Procedure code (CPT) selection complete Office Meds lidocaine HCl 2 % mucosal jelly in applicator Performing Provider: Chi Reddy MD [facility] Administered by: Lyn Stephens RN on 09/08/25 10:09 Dose Route Admin Location Dispensed Lot Number Expiration Date NDC [employer] 10 mL intra-urethral 10 mL nitrofurantoin monohydrate/macrocrystals 100 mg capsule Performing Provider: Chi Reddy MD Performing [place] [facility] Administered by: Lyn Stephens RN on 09/08/25 10:09 Dose Route Admin Location Dispensed Lot Number Expiration Date NDC [employer] Supervisor 100 mg PO 1 cap Assessment & Plan Assessment & Plan (1) Nocturia more than twice per night: Code(s): R35.1 - Nocturia Category: Medical Plan Trial amitriptyline Orders: Orders AMB Cystoscopy Today N40.1 - Benign prostatic hyperplasia with lower urinary tract symptoms Medications: New amitriptyline 25 mg PO BEDTIME 30 tabs 2RF 30 days R35.1 - Nocturia Patient Instructions: This note is constructed using voice recognition software. While every effort has been made to ensure accuracy radio repairer domestic errors may have been included. Imaging studies, laboratory and physical exam results were discussed and reviewed in detail. No major barriers to patient understanding were identified. An opportunity to ask questions regarding the treatment plan was provided. All questions were answered. The patient expressed understanding and agreement with the above treatment plan. The patient is aware they should contact our office by phone for worsening of their current condition or the appearance of new urologic symptoms. Compliance is encouraged with any medications and followup testing that is ordered. It is a privilege to participate in the urologic care of your patient. If you have any questions or concerns regarding treatment for the above conditions, or other urologic issues, please do not hesitate to contact me. The office telephone contact is [phone]. Sincerely, Dr Chi Reddy MD, [facility] - Urology Compassionate Specialist Care for the Genitourinary System Coding Level of Care Code Est Pt Level 4 (55472) Complex EM visit Add On G2211 Diagnoses Nocturia more than twice per night R35.1 CPT Codes Cystoscopy - CPT: 31730-[id number] ([id number])
== END 2025-09-08 10:37 | disposition home or self-care (01) ==
LOC: HO.HUSH 09:42
PROVIDERS: PCP Nurse Practitioner Family; Visit Provider Urology
DX: N40.1 Benign prostatic hyperplasia with lower urinary tract symptoms (principal); R39.12 Poor urinary stream; R35.1 Nocturia
CPT/HCPCS: 52000; 99214

== ENCOUNTER → 2025-09-08 09:41 | Outpatient (BNVA) | payer MEDICARE, SELFPAY | PROVIDERS: PCP Nurse Practitioner Family; Visit Provider Urology | DX: R35.1 Nocturia (principal) | CPT/HCPCS: 52000; 81003; 99212 ==